=== PATIENT | female | born 1945 | race Caucasian/White ===

== ENCOUNTER 2016-11-28 07:10 | Day surgery (SDC) ==
[2016-05-29 12:23] VITALS: BMI 31.8
[2016-11-28 07:56] VITALS: TEMP 98.4
[2016-11-28] MEDS ORDERED: XOPENEX 1.25 MG NEB STA (08:08)
[2016-11-28] MEDS ORDERED: VERSED ONE (10:45)
[2016-11-28] MEDS ORDERED: DIPRIVAN 20 ML VIAL IVP ONE (10:45)
[2016-11-28 12:33] VITALS: BP 157/96
--- NOTE | 2016-11-28 14:45 | OP ---
PROCEDURE: EGD (ESOPHAGOGASTRODUODENOSCOPY). ENDOSCOPIST: Kelsey BURROWS M.D. INDICATION: MID EPIGASTRIC PAIN. INSTRUMENT: GIFH-190. MEDICATION: PER ANESTHESIA. PROCEDURE: The patient was positioned for endoscopy. The oropharynx was sprayed with Cetacaine spray and the endoscope was advanced through the bite block into the esophagus and from there advanced to the duodenum. The duodenum is normal. The pylorus was patent. The antrum reveals some mild gastritis. Biopsies for Helicobacter were obtained. On retroflex exam she does have a large hiatal hernia. The Z-line was regular. Esophagus was tortuous. She tolerated the procedure without immediate complication. PLAN: 1. She should continue all of her current medications. CC: DR. ESE LOMAX
== END 2016-11-28 12:30 | disposition home or self-care (01) ==
LOC: SURG 07:10
PROVIDERS: ATTEND Internal Medicine Gastroenterology
DX: R10.13 Epigastric pain (principal); K29.60 Other gastritis without bleeding; K44.9 Diaphragmatic hernia without obstruction or gangrene; E11.9 Type 2 diabetes mellitus without complications
CPT/HCPCS: 82962; 87339; 94640

== ENCOUNTER 2016-12-26 08:58 | Outpatient (CLI) ==
[2016-05-29 12:23] VITALS: BMI 31.8
--- NOTE | 2016-12-26 12:38 | MRI ---
EXAM: MRI lumbar spine without IV contrast. DATE: 26 December 2016. HISTORY: Radiculitis, lumbar spine degenerative change. Constant, chronic low back pain. TECHNIQUE: Sagittal and axial T1W and T2W sequences of the lumbar spine along with sagittal IR and coronal T2W sequences were obtained using 1.2 Marlene magnet. No IV contrast. COMPARISON: LS spine series [address] T-spine [address] abdomen/pelvis May 18. FINDINGS: There are five [id number] lumbar vertebra. There is no lumbar scoliosis. No acute lumbar fracture, subluxation, osseous malignancy, or pars interarticularis defect is identified. Emma mbar vertebra are normal in height. Bone marrow signal is normal. T2W/T1W bright, 7 mm focus in th e L2 body is likely a benign hemangioma. Tiny anterior osteophytes and mild disc space narrowing ar e seen at L4-5. Mild disc space narrowing is demonstrated at L4-5. Remaining intervertebral discs are normal in height. No sacral fracture or stress reaction is evident. SI joints are unremarkable . Conus medullaris terminates at L1 superior endplate. Visible spinal cord is normal. No retroperitoneal lymphadenopathy, paraspinal mass, or aortic aneurysm is detected. Atheroscleroti c plaques are present within the aortic and iliac artery aviles. Psoas muscles are normal. Posterio r paraspinal muscles reveal minor atrophy bilaterally. Visible portions of the liver, spleen, adren al glands, and kidneys reveal no definitive abnormality. Small number of descending colon diverticu li are identified. Segmental analysis: T12-L1: Normal. L1-2: Normal. L2-3: Minimal posterior to foraminal disc bulge and minor facet disease cause minimal left inferior foraminal encroachment. No central canal stenosis. L3-4: Minimal posterior to foraminal disc bulge and minor facet arthropathy cause minimal bilateral inferior foraminal encroachment. No central canal stenosis. L4-5: Minimal concentric disc bulge, mild facet arthropathy and slight ligamentum flavum hypertroph y cause mild central canal stenosis and mild bilateral foraminal narrowing. L4 nerve root contacts t he disc bulge near the lateral margin of the foramen. L5-S1: Small posterior to right foraminal disc bulge, mild bilateral facet arthropathy, and slight ligamentum flavum hypertrophy cause mild central canal stenosis and slight narrowing at the opening to each foramen. IMPRESSIONS: 1. Lumbar spine mild facet arthropathy and DDD. 2. Mild central canal stenosis at L4-5 and L5-S1. 3. Multilevel foraminal narrowing (minimal/mild). 4. Benign hemangioma in the L3 body. 5. Aortic and iliac artery marked ASVD. 6. Descending colon diverticulosis.
== END 2016-12-26 08:59 | disposition home or self-care (01) ==
LOC: RAD 08:58
PROVIDERS: ATTEND Pain Medicine Interventional Pain Medicine
DX: M54.16 Radiculopathy, lumbar region (principal); M54.17 Radiculopathy, lumbosacral region; M47.816 Spondylosis without myelopathy or radiculopathy, lumbar region; M47.817 Spondylosis without myelopathy or radiculopathy, lumbosacral region; M51.36 Other intervertebral disc degeneration, lumbar region; M51.37 Other intervertebral disc degeneration, lumbosacral region

== ENCOUNTER 2017-01-16 09:48 | Day surgery (SDC) ==
[2016-05-29 12:23] VITALS: BMI 31.8
[2017-01-16] MEDS ORDERED: LIDOCAINE 1% 20 ML MDV ID ONE (10:45)
[2017-01-16] MEDS ORDERED: LIDOCAINE 1% 20 ML MDV ONE (10:45)
[2017-01-16] MEDS ORDERED: XOPENEX 1.25 MG NEB STA (10:51)
[2017-01-16] MEDS ORDERED: LIDOCAINE HCL 2% LUER-JET ONE (11:10)
[2017-01-16] MEDS ORDERED: VERSED ONE (11:10)
[2017-01-16] MEDS ORDERED: DIPRIVAN 20 ML VIAL IVP ONE (11:10)
[2017-01-16] MEDS ORDERED: LIDOCAINE 2% 20 ML MDV ONE (11:10)
[2017-01-16 12:19] VITALS: BP 142/89; TEMP 97.2
--- NOTE | 2017-01-16 14:31 | OP ---
PROCEDURE: EGD (ESOPHAGOGASTRODUODENOSCOPY) WITH BIOPSY AND PINTO DILATATION. ENDOSCOPIST: Kelsey BURROWS M.D. INDICATION: REFLUX, DYSPHAGIA. INSTRUMENT: GIFH-190. MEDICATION: PER ANESTHESIA. PROCEDURE: The patient was positioned for endoscopy. The oropharynx was sprayed with Cetacaine spray and the endoscope was advanced through the bite block into the esophagus and from there advanced to the level of the duodenum. The duodenum is grossly normal. The pylorus is patent. The antrum is normal. Biopsies for helicobacter are obtained. Retroflex exam reveals a moderate sized hiatal hernia. Esophagus is very tortuous. We passed a [address] [place] with mild resistance. She tolerated the procedure without immediate complication. PLAN: 1. Continue current medications 2. Repeat as needed MTDD
== END 2017-01-16 12:15 | disposition home or self-care (01) ==
LOC: SURG 09:48
PROVIDERS: ATTEND Internal Medicine Gastroenterology
DX: K21.9 Gastro-esophageal reflux disease without esophagitis (principal); K44.9 Diaphragmatic hernia without obstruction or gangrene; R13.10 Dysphagia, unspecified; E11.9 Type 2 diabetes mellitus without complications
CPT/HCPCS: 82962; 94640

== ENCOUNTER 2017-02-07 19:27 | Emergency (ER) | payer OTHER ==
[2017-02-07 19:38] VITALS: BP 166/99; TEMP 100.6; BMI 29.9
[2017-02-07 19:59] LABS: FLU INTERNAL QC INTERNAL QC VALID; RAPID FLU A NEGATIVE (NEGATIVE); RAPID FLU B NEGATIVE (NEGATIVE)
--- NOTE | 2017-02-07 20:16 | ED.PDOC ---
General ED Provider: Dr. MAGI HERRERA-ER Chief Complaint: Sore Throat Stated Complaint: celso got a sore throat and a cough-- Time Seen by Physician: 19:35 Mode of Arrival: Walk-In Information Source: Patient Exam Limitations: No limitations Primary Care Provider: DEBBIE MULLIGAN-[facility] Nursing and Triage Documentation Reviewed and Agree: Yes Respiratory Complaint Exam - Respiratory Complaint/Exam Onset/Duration: 2 days Symptoms Are: Still present Timing: Intermittent Initial Severity: Mild Current Severity: Mild Location: Nose, Chest Character: Reports: Non-productive cough Aggravating: Reports: URI Alleviating: Reports: None Associated Signs and Symptoms: Reports: Fever, URI, Nasal congestion, Sore throat. Denies: Rapid breathing, Dyspnea, Chills, Chest pain, Pleuritic chest pain, Wheezing, Hemoptysis, Dizziness, Calf pain, Calf swelling, Edema, Hoarseness, Sinus discomfort, Vomiting, Weight loss, Decreased oral intake, Increased thirst, Increased appetite, Increased urination History of Healthcare-Acquired Pneumonia: No Pseudomonas Risk Factors: Reports: Chronic Lung Disease Status Asthmaticus Risk Factors: Reports: None Home Oxygen Use: No Recent Stress Test: No Recent Echo/LV Function: No Respiratory Distress: None Inadequate Respiratory Effort: No Dysphagia Present: No Stridor Present: No JVD Present: No Accessory Muscle Use: No Retractions: Not Present Diminished Breath Sounds: No Sinus Tenderness: None Grunting Respirations: No Kussmaul Respirations: No Differential Diagnoses: COPD Exacerbation, Bronchitis Review of Systems - Review Of Systems Constitutional: Reports: No symptoms Eyes: Reports: No symptoms Ears, Nose, Mouth, Throat: Reports: No symptoms Respiratory: Reports: Cough Cardiac: Reports: No symptoms GI: Reports: No symptoms : Reports: No symptoms Musculoskeletal: Reports: No symptoms Skin: Reports: No symptoms Neurological: Reports: No symptoms Endocrine: Reports: No symptoms Hematologic/Lymphatic: Reports: No symptoms All Other Systems: Reviewed and Negative Past Medical History - Past Medical History Previously Healthy: No Endocrine: Reports: DM 2, Hypothyroid, Other (GOUT) Cardiovascular: Reports: None Respiratory: Reports: COPD Hematological: Reports: None Gastrointestinal: Reports: GERD Genitourinary: Reports: None Neuro/Psych: Reports: Depression, Other ( HEAD INJURY 2-3 MONTHS AGO FROM FALL) Musculoskeletal: Reports: Arthritis, Other Cancer: Reports: None Last Menstrual Period: at 38 years old Other Pertinent Past Medical History: HYPOTENSION (PAST HISTORY OF HYPERTENSION ) - Surgical History General Surgical History: Reports: Hysterectomy ( hyst40 years ago), Other ( BILATERAL CATARACT EXTRACTIONS), Unknown - Family History Family History: Reports: Unknown - Social History Smoking Status: Former smoker Hx Substance Use: No Alcohol Screening: None Lives: With family - Immunizations Tetanus Shot up to Date: Yes Physical Exam - Physical Exam Appearance: Well-appearing, No pain distress, Well-nourished Pain Distress: Mild Eyes: WIL, EOMI, Conjunctiva clear ENT: Ears normal, Nose normal, Oropharynx normal Neck: Supple Respiratory: Rhonchi Cardiovascular: RRR, Pulses normal, No rub, No murmur GI/: Soft, Nontender, No masses, Bowel sounds normal, No Organomegaly Musculoskeletal: Normal strength, ROM intact, No edema, No calf tenderness Skin: Warm, Dry, Normal color Neurological: Sensation intact, Motor intact, Reflexes intact, Cranial nerves intact, Alert, Oriented Psychiatric: Affect appropriate, Mood appropriate Critical Care Note - Critical Care Note Total Time (mins): 0 Course - Course Orders, Labs, Meds: Lab Review 02/07/17 19:40 Influenza A (Rapid) Negative Influenza B (Rapid) Negative Orders Category Date Time Status MOLECULAR GROUP A STREP Stat LAB 02/07/17 19:40 Results RAPID FLU A/B Stat LAB 02/07/17 19:40 Completed STREP SCREEN Stat LAB 02/07/17 19:40 Results Vital Signs: Temp Pulse Resp BP Pulse Ox 02/07/17 19:29 100.6 F H 94 H 20 166/99 H 95 Departure - Departure Time of Disposition: 20:16 Disposition: HOME SELF-CARE Discharge Problem: Obstructive chronic bronchitis with exacerbation Instructions: COPD (Chronic Obstructive Pulmonary Disease) (ED) Condition: Good Pt referred to PMD for follow-up: Yes Additional Instructions: augmentin 875mg bid x 7days--medrol dose pack--monitor bs on the steroids --fu with pcp if not better in 72hrs Allergies/Adverse Reactions: Allergies albuterol Allergy (Intermediate, Verified 02/07/17 19:35) Rash nebs tx causes rash Home Medications: Ambulatory Orders Metformin HCl [Glucophage] 500 mg PO DAILYWM #30 tablet 08/05/15 Diltiazem HCl [Cardizem] 30 mg PO BID 03/04/16 Fluticasone/Salmeterol 100/50 [Advair 100-50 Diskus] 1 puff IH BID 03/04/16 Gabapentin [Neurontin] 100 mg PO TID 03/04/16 Levothyroxine Sodium [Synthroid] 1 tab PO DAILY 03/04/16 Losartan Potassium [Cozaar] 50 mg PO DAILY 03/04/16 [place]-3 Fatty Acids/Fish Oil [Fish Oil 1,000 mg Capsule] 1,000 mcg PO DAILY 04/14 Potassium Chloride [Klor-Con 10] 1 tab PO DAILY 03/04/16 Simvastatin 20 mg PO DAILY 03/04/16 Tiotropium [place] [Spiriva] 18 mcg IH DAILY 03/04/16 Cholecalciferol (Vitamin D3) [Vitamin D3] 1 cap PO WEEKLY 03/21/16 Oxycodone-Acetaminophen 10-325 [Percocet 10-325] 1 tab PO Q6H 05/29/16 Trazodone HCl 150 mg PO BEDTIME 05/29/16 Arformoterol Tartrate [Brovana] 1 vial IH DAILY #30 vial.neb 06/02/16 Levalbuterol HCl [Xopenex] 1.25 mg IH Q8HR #240 vial.neb 06/02/16 Escitalopram Oxalate [Lexapro] 10 mg PO BEDTIME #30 06/16/16 Imipramine Pamoate 100 mg PO BEDTIME #30 06/16/16 Imipramine Pamoate 100 mg PO BEDTIME #30 09/29/16 Diazepam [Valium] 10 mg PO TID #90 01/19/17 Disposition Discussed With: Patient
== END 2017-02-07 20:15 | disposition home or self-care (01) ==
LOC: ED 19:27
DX: J44.1 Chronic obstructive pulmonary disease with (acute) exacerbation (principal); J02.9 Acute pharyngitis, unspecified; Z79.899 Other long term (current) drug therapy
CPT/HCPCS: 87651; 87804; 87880; 99283

== ENCOUNTER 2017-03-06 17:50 | Outpatient (CLI) | payer OTHER ==
[2017-03-07 09:54] LABS: H. PYLORI STOOL ANTIGEN NEGATIVE (NEGATIVE); H.PYLORI STOOL AG INTERNAL QC INTERNAL QC VALID
== END 2017-03-06 17:51 | disposition home or self-care (01) ==
LOC: LAB 17:50
PROVIDERS: ATTEND Internal Medicine Gastroenterology
DX: K21.9 Gastro-esophageal reflux disease without esophagitis (principal)
CPT/HCPCS: 87338

== ENCOUNTER 2017-03-13 11:49 | Inpatient (IN) ==
--- NOTE | 2017-03-13 13:00 | ED.PDOC ---
General ED Provider: Dr. MEREDITH GIRALDO JR Chief Complaint: Cough Stated Complaint: dg RECENTLY HAS BEEN TREATED FOR UPPER RESP WITH Z-PACK. PATIENT STATES "HAVE NOT BEEN GETTING ANY BETTER"[End]99.5 99 20 92% 143/84 3 Time Seen by Physician: 13:00 Mode of Arrival: Walk-In Information Source: Patient, Family Exam Limitations: No limitations Primary Care [facility] and Triage Documentation Reviewed and Agree: No Review of Systems - Review Of Systems Constitutional: Reports: Malaise, Weakness Eyes: Reports: No symptoms Ears, Nose, Mouth, Throat: Reports: No symptoms Respiratory: Reports: Cough Cardiac: Reports: No symptoms GI: Reports: No symptoms : Reports: No symptoms Musculoskeletal: Reports: No symptoms Skin: Reports: No symptoms Neurological: Reports: No symptoms Endocrine: Reports: No symptoms Hematologic/Lymphatic: Reports: No symptoms All Other Systems: Other Past Medical History - Past Medical History Previously Healthy: No Endocrine: Reports: DM 2, Hypothyroid, Other (GOUT ) Cardiovascular: Reports: None Respiratory: Reports: COPD, Bronchitis (bronchitis several times), Pneumonia Hematological: Reports: None Gastrointestinal: Reports: GERD Genitourinary: Reports: None Neuro/Psych: Reports: Depression, Other ( HEAD INJURY 2-3 MONTHS AGO FROM FALL) Musculoskeletal: Reports: Arthritis, Other Cancer: Reports: None Last Menstrual Period: 1986 Other Pertinent Past Medical History: HYPOTENSION (PAST HISTORY OF HYPERTENSION ) - Surgical History General Surgical History: Reports: Hysterectomy ( hyst 38 years old), Orthopedic ( right foot surgery at 50 years old), Other (BILATERAL CATARACT EXTRACTIONS), Unknown - Family History Family History: Reports: Unknown - Social History Smoking Status: Former smoker Hx Substance Use: No Alcohol Screening: None - Immunizations Tetanus Shot up to Date: Yes Physical Exam - Physical Exam Appearance: Well-appearing Eyes: WIL, EOMI, Conjunctiva clear ENT: Ears normal, Nose normal, Oropharynx normal Neck: Supple Respiratory: Airway patent, Breath sounds clear, Breath sounds equal, Respirations nonlabored Cardiovascular: RRR, Pulses normal, No rub, No murmur GI/: Soft, Nontender, No masses, Bowel sounds normal, No Organomegaly Musculoskeletal: Normal strength, ROM intact, No edema, No calf tenderness Skin: Warm, Dry, Normal color Neurological: Sensation intact, Motor intact, Reflexes intact, Cranial nerves intact, Alert, Oriented Psychiatric: Affect appropriate, Mood appropriate Critical Care Note - Critical Care Note Total Time (mins): 5 Course - Course Hematology/Chemistry: 03/13/17 13:10 03/13/17 13:10 Orders, Labs, Meds: Lab Review 03/13/17 13:10 WBC 8.61 RBC 4.19 L Hgb 13.0 Hct 39.7 MCV 94.7 MCH 31.0 MCHC 32.7 RDW Coeff of Fawad 12.8 Plt Count 337 Immature Gran % (Auto) 0.6 Neut % (Auto) 67.7 Lymph % (Auto) 22.9 [place] % (Auto) 5.8 Eos % (Auto) 2.4 Baso % (Auto) 0.6 Immature Gran # (Auto) 0.1 Neut # 5.8 Lymph # 2.0 [place] # 0.5 Eos # 0.2 Baso # 0.1 Sodium 139 Potassium 3.9 Chloride 106 Carbon Dioxide 25 Anion Gap 11.9 BUN 7 Creatinine 0.89 Estimated GFR (MDRD) 63.00 BUN/Creatinine Ratio 7.86 Glucose 88 Lactic Acid 8.4 Calcium 11.0 H Total Bilirubin 0.28 AST 10 L ALT 13 Alkaline Phosphatase 73 Total Creatine Kinase 21 Troponin I < 0.0100 B-Natriuretic Peptide 18 Total Protein 7.2 Albumin 3.3 L Globulin 3.9 Albumin/Globulin Ratio 0.85 Procalcitonin 1.12 Orders Category Date Time Status ADMIT PATIENT INPATIENT .TO [facility] (MONITORED BED) ADMISSION 03/13/17 14: 30 Active EKG-(ED ONLY) Stat CARDIO 03/13/17 12:58 Completed EKG-(IP & OP ONLY) DAILY CARDIO 03/14/17 06:00 Ordered EKG-(IP & OP ONLY) DAILY CARDIO 03/15/17 06:00 Ordered EKG-(IP & OP ONLY) DAILY CARDIO 03/16/17 06:00 Ordered ACTIVITY .Early Mobilization for VTE Prevention CARE 03/13/17 14:41 Active BLOOD GLUCOSE MONITORING 0630,1100,1700,2100 CARE 03/13/17 14:42 Active GIVE HS SNACK 2100 CARE 03/13/17 14:43 Active INTAKE & OUTPUT Q8HR CARE 03/13/17 14:30 Active INTAKE & OUTPUT Q8HR CARE 03/13/17 14:41 Completed TELEMETRY MONITORING TELE CARE 03/13/17 14:31 Active ADA 1800 PAUL. DIET DIETARY 03/13/17 Dinner Ordered HS SNACK DIETARY 03/13/17 Dinner Ordered B-TYPE NATRIURETIC PEPTIDE Stat LAB 03/13/17 13:10 Completed BLOOD CULTURE Stat LAB 03/13/17 13:10 Received CBC W/ AUTO DIFF DAILY@0600 LAB 03/14/17 06:00 Ordered CBC W/ AUTO DIFF DAILY@0600 LAB 03/15/17 06:00 Ordered CBC W/ AUTO DIFF DAILY@0600 LAB 03/16/17 06:00 Ordered CBC W/ AUTO DIFF DAILY@0600 LAB 03/17/17 06:00 Ordered CBC W/ AUTO DIFF DAILY@0600 LAB 03/18/17 06:00 Ordered CBC W/ AUTO DIFF DAILY@0600 LAB 03/19/17 06:00 Ordered CBC W/ AUTO DIFF DAILY@0600 LAB 03/20/17 06:00 Ordered CBC W/ AUTO DIFF DAILY@0600 LAB 03/21/17 06:00 Ordered CBC W/ AUTO DIFF DAILY@0600 LAB 03/22/17 06:00 Ordered CBC W/ AUTO DIFF DAILY@0600 LAB 03/23/17 06:00 Ordered CBC W/ AUTO DIFF DAILY@0600 LAB 03/24/17 06:00 Ordered CBC W/ AUTO DIFF DAILY@0600 LAB 03/25/17 06:00 Ordered CBC W/ AUTO DIFF DAILY@0600 LAB 03/26/17 06:00 Ordered CBC W/ AUTO DIFF DAILY@0600 LAB 03/27/17 06:00 Ordered CBC W/ AUTO DIFF DAILY@0600 LAB 03/28/17 06:00 Ordered CBC W/ AUTO DIFF DAILY@0600 LAB 03/29/17 06:00 Ordered CBC W/ AUTO DIFF DAILY@0600 LAB 03/30/17 06:00 Ordered CBC W/ AUTO DIFF DAILY@0600 LAB 03/31/17 06:00 Ordered CBC W/ AUTO DIFF DAILY@0600 LAB 04/01/17 06:00 Ordered CBC W/ AUTO DIFF DAILY@0600 LAB 04/02/17 06:00 Ordered CBC W/ AUTO DIFF Stat LAB 03/13/17 13:10 Completed COMPREHENSIVE METABOLIC PANEL DAILY@0600 LAB 03/14/17 06:00 Ordered COMPREHENSIVE METABOLIC PANEL DAILY@0600 LAB 03/15/17 06:00 Ordered COMPREHENSIVE METABOLIC PANEL DAILY@0600 LAB 03/16/17 06:00 Ordered COMPREHENSIVE METABOLIC PANEL DAILY@0600 LAB 03/17/17 06:00 Ordered COMPREHENSIVE METABOLIC PANEL DAILY@0600 LAB 03/18/17 06:00 Ordered COMPREHENSIVE METABOLIC PANEL DAILY@0600 LAB 03/19/17 06:00 Ordered COMPREHENSIVE METABOLIC PANEL DAILY@0600 LAB 03/20/17 06:00 Ordered COMPREHENSIVE METABOLIC PANEL DAILY@0600 LAB 03/21/17 06:00 Ordered COMPREHENSIVE METABOLIC PANEL DAILY@0600 LAB 03/22/17 06:00 Ordered COMPREHENSIVE METABOLIC PANEL DAILY@0600 LAB 03/23/17 06:00 Ordered COMPREHENSIVE METABOLIC PANEL DAILY@0600 LAB 03/24/17 06:00 Ordered COMPREHENSIVE METABOLIC PANEL DAILY@0600 LAB 03/25/17 06:00 Ordered COMPREHENSIVE METABOLIC PANEL DAILY@0600 LAB 03/26/17 06:00 Ordered COMPREHENSIVE METABOLIC PANEL DAILY@0600 LAB 03/27/17 06:00 Ordered COMPREHENSIVE METABOLIC PANEL DAILY@0600 LAB 03/28/17 06:00 Ordered COMPREHENSIVE METABOLIC PANEL DAILY@0600 LAB 03/29/17 06:00 Ordered COMPREHENSIVE METABOLIC PANEL DAILY@0600 LAB 03/30/17 06:00 Ordered COMPREHENSIVE METABOLIC PANEL DAILY@0600 LAB 03/31/17 06:00 Ordered COMPREHENSIVE METABOLIC PANEL DAILY@0600 LAB 04/01/17 06:00 Ordered COMPREHENSIVE METABOLIC PANEL DAILY@0600 LAB 04/02/17 06:00 Ordered COMPREHENSIVE METABOLIC PANEL Stat LAB 03/13/17 13:10 Completed CREATINE KINASE Q8H LAB 03/13/17 20:45 Ordered CREATINE KINASE Q8H LAB 03/14/17 04:45 Ordered CREATINE KINASE Stat LAB 03/13/17 13:10 Completed LACTIC ACID Stat LAB 03/13/17 13:10 Completed PROCALCITONIN Stat LAB 03/13/17 13:10 Completed SPUTUM CULTURE Stat LAB 03/13/17 13:58 Uncollected TROPONIN I Q8H LAB 03/13/17 20:45 Ordered TROPONIN I Q8H LAB 03/14/17 04:45 Ordered TROPONIN I Stat LAB 03/13/17 13:10 Completed Azithromycin Inj [Zithromax] 500 mg MEDS 03/13/17 15:00 Active 0.9 % Sodium Chloride [Sodium Chloride] 250 ml IV DAILY Ceftriaxone Sodium [Rocephin] 1 gm MEDS 03/14/17 09:00 Active 0.9 % Sodium Chloride [Sodium Chloride] 50 ml IV DAILY Methylprednisolone Sod Succ/Pf [Solu-Medrol 125 mg] MEDS 03/13/17 15:00 Active 80 mg IVP Q8HR Sodium Chloride 0.9% [Sodium Chloride] 1,000 ml MEDS 03/13/17 15:00 Active IV 75 mls/hr RESUSCITATION STATUS Routine OTHERS 03/13/17 14:30 Ordered CHEST, 2 VIEWS PA & LAT Stat RADS 03/13/17 13:00 Completed Medications Generic Name Dose Route Start Last Admin Trade Name Freq PRN Reason Stop Dose Admin Diazepam 10 mg 03/13/17 15:16 Valium PO TID PRN ANXIETY Diltiazem HCl 30 mg 03/13/17 21:[address] [facility] Ergocalciferol 50,000 unit 03/20/17 09:[address] [facility] Fish Oil 1,000 mg 03/14/17 09:00 [place]-[address] [facility] Formoterol Fumarate 1 mcg 03/14/17 06:[address] [facility] Gabapentin 100 mg 03/13/17 15:00 03/13/17 16:29 Neurontin PO 100 mg TID EMMY Administration Azithromycin 500 mg/ Sodium 250 mls @ 125 mls/hr 03/13/17 15:00 03/13/17 16: 29 Chloride IV 125 mls/hr DAILY EMMY Administration Ceftriaxone Sodium 1 gm/ 50 mls @ 75 mls/hr 03/14/17 09:00 Sodium Chloride IV DAILY EMMY Sodium Chloride 1,000 mls @ 75 mls/hr 03/13/17 15:00 03/13/17 16:24 Sodium Chloride IV 75 mls/hr .[id number] EMMY Administration Levalbuterol HCl 1 vial 03/13/17 21:00 Xopenex 1.25 Mg NEB Q8HR EMMY Levothyroxine Sodium 25 mcg 03/14/17 09:[address] [facility] Losartan Potassium 50 mg 03/14/17 09:[address] [facility] Metformin HCl 500 mg 03/14/17 08:[address] [facility] Methylprednisolone Sodium Succinate 80 mg 03/13/17 15:00 03/13/17 16:48 Solu-Medrol 125 Mg IVP 80 mg Q8HR EMMY Administration Non-Formulary Medication 100 mg 03/13/17 21:00 Imipramine Pamoate [Imipramine Pamoate] PO BEDTIME EMMY Oxycodone/Acetaminophen 1 tab 03/13/17 14:56 Percocet 10-325 PO Q6H PRN Severe Pain Potassium Chloride 10 meq 03/14/17 09:00 Micro-K Cap PO DAILY EMMY Fluticasone/Salmeterol 1 puff 03/13/17 21:00 Advair 100-50 Diskus IH BID EMMY Simvastatin 20 mg 03/14/17 09:00 Zocor PO DAILY EMMY Tiotropium [place] 1 cap 03/14/17 09:00 Spiriva IH DAILY EMMY Trazodone HCl 150 mg 03/13/17 21:00 Desyrel PO BEDTIME EMMY Discontinued Medications Generic Name Dose Route Start Last Admin Trade Name Freq PRN Reason Stop Dose Admin Ceftriaxone Sodium 1 gm/ 50 mls @ 75 mls/hr 03/13/17 14:52 03/13/17 15:15 Sodium Chloride IV 03/13/17 15:31 75 mls/hr ONCE STA Administration Vital Signs: Temp Pulse Resp BP Pulse Ox 03/13/17 11:51 99.5 F 99 H 20 143/84 H 92 L Departure - Departure Time of Disposition: 15:01 Disposition: ADMITTED INPATIENT Discharge Problem: Pneumonia Condition: Good Pt referred to PMD for follow-up: No (hospitalist) Allergies/Adverse Reactions: Allergies albuterol Allergy (Intermediate, Verified 02/07/17 19:35) Rash nebs tx causes rash Home Medications: Ambulatory Orders Metformin HCl [Glucophage] 500 mg PO DAILYWM #30 tablet 08/05/15 Diltiazem HCl [Cardizem] 30 mg PO BID 03/04/16 Fluticasone/Salmeterol 100/50 [Advair 100-50 Diskus] 1 puff IH BID 03/04/16 Gabapentin [Neurontin] 100 mg PO TID 03/04/16 Levothyroxine Sodium [Synthroid] 1 tab PO DAILY 03/04/16 Losartan Potassium [Cozaar] 50 mg PO DAILY 03/04/16 [place]-3 Fatty Acids/Fish Oil [Fish Oil 1,000 mg Capsule] 1,000 mcg PO DAILY 04/14 Potassium Chloride [Klor-Con 10] 1 tab PO DAILY 03/04/16 Simvastatin 20 mg PO DAILY 03/04/16 Tiotropium [place] [Spiriva] 18 mcg IH DAILY 03/04/16 Cholecalciferol (Vitamin D3) [Vitamin D3] 1 cap PO WEEKLY 03/21/16 Oxycodone-Acetaminophen 10-325 [Percocet 10-325] 1 tab PO Q6H 05/29/16 Trazodone HCl 150 mg PO BEDTIME 05/29/16 Arformoterol Tartrate [Brovana] 1 vial IH DAILY #30 vial.[facility] 06/02/16 Levalbuterol HCl [Xopenex] 1.25 mg IH Q8HR #240 vial.[facility] 06/02/16 Escitalopram Oxalate [Lexapro] 10 mg PO BEDTIME #30 06/16/16 Imipramine Pamoate 100 mg PO BEDTIME #30 06/16/16 Imipramine Pamoate 100 mg PO BEDTIME #30 09/29/16 Diazepam [Valium] 10 mg PO TID #90 01/19/17
[2017-03-13 13:21] LABS: BASOPHILS # (AUTO) 0.1 K/uL (0-0.2); BASOPHILS % (AUTO) 0.6 % (0.0-3.0); EOSINOPHILS # (AUTO) 0.2 K/ul (0.0-0.7); EOSINOPHILS % (AUTO) 2.4 % (0.0-7.0); HEMATOCRIT 39.7 % (37.0-47.0); IMMATURE GRANULOCYTE % (AUTO) 0.6 % (0.0-5.0); LYMPHOCYTES % (AUTO) 22.9 (10.0-50.0); MEAN CORPUSCULAR HGB CONC 32.7 (31.8-35.4); MEAN CORPUSCULAR VOLUME 94.7 fl (81.0-99.0); MONOCYTES # (AUTO) 0.5 K/uL (0.4-2.0); MONOCYTES % (AUTO) 5.8 (0-10); NEUTROPHILS # (AUTO) 5.8 K/ul (2.0-6.9); NEUTROPHILS % (AUTO) 67.7; PLATELET COUNT 337 10^3/uL (140-440); RED BLOOD COUNT 4.19 10^6/ul (4.20-5.40); WHITE BLOOD COUNT 8.61 K/ul (4.6-10.2)
--- NOTE | 2017-03-13 13:46 | DI ---
EXAM: Chest two view, frontal and lateral views. HISTORY: Cough. COMPARISON: 06/01/2016. FINDINGS: Heart size is normal. Atherosclerotic calcifications present. Calcified granulomatous c hanges noted. There is right perihilar consolidation which is new from prior study. No pleural eff usion or pneumothorax identified. No acute osseous abnormality seen. Probable hiatal hernia noted. IMPRESSION: Right perihilar consolidation, suggesting pneumonia. Follow-up in 4-6 weeks recommended for sanjay pedroza.
[2017-03-13 13:47] LABS: ALANINE AMINOTRANSFERASE 13 U/L (12-78); ALBUMIN 3.3 g/dL (3.4-5.0); ALBUMIN/GLOBULIN RATIO 0.85; ALKALINE PHOSPHATASE 73 U/L (53-141); ANION GAP 11.9; ASPARTATE AMINO TRANSFERASE 10 U/L (15-37); BILIRUBIN,TOTAL 0.28 mg/dL (0.00-1.20); BLOOD UREA NITROGEN 7 mg/dL (7-18); BUN/CREATININE RATIO 7.86; CARBON DIOXIDE 25 mmol/L (23-31); CHLORIDE 106 mmol/L (98-107); CREATINE KINASE 21 U/L; CREATININE 0.89 mg/dL (0.60-1.30); GLUCOSE 88 mg/dL (82-115); POTASSIUM 3.9 mmol/L (3.5-5.10); SODIUM 139 mmol/L (136-145); TOTAL PROTEIN 7.2 g/dL (5.8-8.1)
[2017-03-13] MEDS ORDERED: TYLENOL PO PRN (14:41)
[2017-03-13] MEDS ORDERED: NON-FORMULARY MEDICATION (Diazepam [Valium] 10 MG) PO PRN ×22 (14:56)
[2017-03-13] MEDS ORDERED: ROCEPHIN ONE (15:06)
[2017-03-13] MEDS: ROCEPHIN 1 GM in SODIUM CHLORIDE 50 ML IV STA ×2 (15:15→16:11)
[2017-03-13] MEDS: SODIUM CHLORIDE 1,000 ML IV SCH (16:24)
[2017-03-13] MEDS: NEURONTIN PO SCH ×2 (16:29→20:04)
[2017-03-13] MEDS: ZITHROMAX 500 MG in SODIUM CHLORIDE 250 ML IV SCH (16:29)
[2017-03-13] MEDS: SOLU-MEDROL 125 MG IVP SCH ×2 (16:48→20:03)
[2017-03-13 17:21] VITALS: BMI 31.1
[2017-03-13] MEDS: DESYREL PO SCH (20:04)
[2017-03-13] MEDS: CARDIZEM PO SCH (20:04)
[2017-03-13] MEDS: ADVAIR 100-50 DISKUS IH SCH (20:12)
[2017-03-13] MEDS: IMIPRAMINE PAMOATE 100 MG PO SCH (20:13)
[2017-03-13] MEDS ORDERED: XOPENEX 1.25 MG NEB SCH (21:00)
[2017-03-13] MEDS: XOPENEX 1.25 MG NEB SCH (21:00)
[2017-03-13] MEDS ORDERED: NON-FORMULARY MEDICATION (Trazodone Hcl [Trazodone Hcl] 150 MG) PO SCH ×22 (21:00)
[2017-03-13 21:41] LABS: CREATINE KINASE 24 U/L
[2017-03-14] MEDS ORDERED: TYLENOL PO STA (01:55)
[2017-03-14 04:48] LABS: HEMATOCRIT 38.3 % (37.0-47.0); HEMOGLOBIN 12.7 g/dl (12.0-16.0); MEAN CORPUSCULAR HGB CONC 33.2 (31.8-35.4); MEAN CORPUSCULAR VOLUME 93.4 fl (81.0-99.0); PLATELET COUNT 313 10^3/uL (140-440); WHITE BLOOD COUNT 6.26 K/ul (4.6-10.2)
[2017-03-14 05:01] LABS: ANISOCYTOSIS NOT PRESENT (NOT PRESENT)
[2017-03-14 05:09] LABS: ALBUMIN 2.8 g/dL (3.4-5.0); ALBUMIN/GLOBULIN RATIO 0.78; ANION GAP 12.8; BILIRUBIN,TOTAL 0.13 mg/dL (0.00-1.20); BUN/CREATININE RATIO 12.19; CALCIUM 10.4 mg/dL (8.2-10.2); CREATININE 0.82 mg/dL (0.60-1.30); POTASSIUM 4.8 mmol/L (3.5-5.10); TOTAL PROTEIN 6.4 g/dL (5.8-8.1)
[2017-03-14] MEDS: XOPENEX 1.25 MG NEB SCH ×3 (05:09→22:35)
[2017-03-14] MEDS: SOLU-MEDROL 125 MG IVP SCH ×3 (05:16→20:17)
[2017-03-14 05:18] LABS: CREATINE KINASE 21 U/L
[2017-03-14] MEDS: SYNTHROID PO SCH (05:33)
[2017-03-14] MEDS ORDERED: PERFOROMIST NEB SCH (06:00)
[2017-03-14] MEDS: SODIUM CHLORIDE 1,000 ML IV SCH ×3 (07:19→17:45)
[2017-03-14] MEDS: GLUCOPHAGE PO SCH (08:06)
[2017-03-14] MEDS: SPIRIVA IH SCH (08:58)
[2017-03-14] MEDS: ADVAIR 100-50 DISKUS IH SCH ×2 (08:58→20:16)
[2017-03-14] MEDS: ROCEPHIN 1 GM in SODIUM CHLORIDE 50 ML IV SCH (08:58)
[2017-03-14] MEDS ORDERED: SYNTHROID PO SCH (09:00)
[2017-03-14] MEDS ORDERED: POTASSIUM CHLORIDE PO SCH ×22 (09:00)
[2017-03-14] MEDS ORDERED: NON-FORMULARY MEDICATION (Omega-3 Fatty Acids/Fish Oil [Fish Oil 1,000 Mg Capsule] 1,000 M PO SCH ×22 (09:00)
[2017-03-14] MEDS: NEURONTIN PO SCH ×3 (09:00→20:16)
[2017-03-14] MEDS: ZOCOR PO SCH (09:00)
[2017-03-14] MEDS: MICRO-K CAP PO SCH (09:00)
[2017-03-14] MEDS ORDERED: NON-FORMULARY MEDICATION (Arformoterol Tartrate [Brovana] 1 VIAL) IH SCH (09:00)
[2017-03-14] MEDS ORDERED: NON-FORMULARY MEDICATION (Simvastatin [Simvastatin] 20 MG) PO SCH ×22 (09:00)
[2017-03-14] MEDS: COZAAR PO SCH (09:00)
[2017-03-14] MEDS: CARDIZEM PO SCH ×2 (09:01→20:16)
[2017-03-14] MEDS: OMEGA-3 FISH OIL PO SCH (09:01)
--- NOTE | 2017-03-14 10:10 | PCM.PROG ---
Attending Provider: ATTENDING PROVIDER: Dr. DEBBIE MULLIGAN -- SEEN BY DR. GOLDEN DATE OF SERVICE: 03/14/17 SUBJECTIVE: This 71 year old WHITE/ F was hospitalized 03/13/17. The patient is hospitalized with pneumonia. She is being treated with Zithromax, Rocephin, steroids and nebs treatment. The patient is feeling better, is able to talk without coughing. REVIEW OF SYSTEMS: CONSTITUTIONAL: No night sweats. No fatigue, malaise, lethargy. No fever or chills. HEENT: Eyes: No visual changes. No eye pain. No eye discharge. ENT: No runny nose. No epistaxis. No sinus pain. No odynophagia. No congestion. RESPIRATORY: Mild cough. No congestion. No hemoptysis. CARDIOVASCULAR: No angina symptoms. No CHF symptoms. No atypical chest pain for CAD. No palpitations. No shortness of breath. No PND, no orthopnea. GASTROINTESTINAL: Appetite is good. No abdominal pain. No nausea or vomiting. No diarrhea or constipation. No hematemesis. No hematochezia. GENITOURINARY: No urgency. No frequency. No dysuria. No hematuria. No obstructive symptoms. No discharge. No pain. No significant abnormal bleeding. MUSCULOSKELETAL: No musculoskeletal pain; no joint swelling. NEUROLOGICAL: Awake, alert, oriented to time, place and person. No headache. No neck pain. No syncope. No seizures. No dizziness. PSYCHIATRIC: Not anxious. No depression. No suicidal thoughts. No homicidal thoughts. SKIN: No rash. No lesions. No wounds. ENDOCRINE: No unexplained weight loss. No weight gain. HEMATOLOGIC/LYMPHATIC: No anemia. No purpura. No petechiae. No prolonged or excessive bleeding. No palpable lymph nodes. PHYSICAL EXAMINATION: GENERAL: The patient is awake, alert and oriented, lying in bed in no distress. VITAL SIGNS: Temperature 97.0 F, Pulse 88, Respiratory Rate 19, BP 149/86, Pulse Ox 94% HEENT: Head normocephalic, atraumatic. Eyes: Extraocular muscles are intact. Pupils are equal, round and reactive to light and accommodation. Ears: No lesions. Nose appeared normal. Throat: No exudate or erythema. NECK: Supple. No JVD, no carotid bruit. No lymphadenopathy or thyromegaly. LUNGS: Decreased breath sounds. Clear to auscultation. Percussion note normal. Chest symmetrical. HEART: S1, S2, no S3. No murmurs. No cyanosis or clubbing. No ascites. Pulses: Dorsalis pedis and posterior tibial pulses +2 strong bilaterally. ABDOMEN: Soft. Non-tender. Bowel sounds active. No CVA tenderness. No mass felt. EXTREMITIES: No edema. Full range of motion of all extremities, equal. NEUROLOGIC: No focal deficit. Cranial nerves II through XII are grossly intact. No headache, no double vision or headache. SKIN: Not dry. Intact. Turgor-normal. LYMPHATIC: No palpable lymph nodes/no lymphedema. MUSCULOSKELETAL: Normal joints with no swelling. Muscle tone is normal. LAB REVIEW: 03/14/17 04:45 03/14/17 04:45 03/14/17 04:45: WBC 6.26, RBC 4.10 L, Hgb 12.7, Hct 38.3, MCV 93.4, MCH 31.0, MCHC 33.2, RDW Coeff of Fawad 12.6, Plt Count 313, Neutrophils % (Manual) 81.0 H, Lymphocytes % (Manual) 19.0, Sodium 139, Potassium 4.8, Chloride 108 H, Carbon Dioxide 23, Anion Gap 12.8, BUN 10, Creatinine 0.82, Estimated GFR (MDRD) 69.00 , BUN/Creatinine Ratio 12.19, Glucose 229 H D, Calcium 10.4 H, Total Bilirubin 0.13, AST 8 L, ALT 12, Alkaline Phosphatase 70, Total Creatine Kinase 21, Troponin I < 0.0100, Total Protein 6.4, Albumin 2.8 L, Globulin 3.6, Albumin/ Globulin Ratio 0.78 03/13/17 21:10: Total Creatine Kinase 24, Troponin I < 0.0100 ASSESSMENT: 1. PNEUMONIA 2. DIABETES MELLITUS 3. HYPERTENSION 4. DYSLIPIDEMIA 5. GENERALIZED OSTEOARTHRITIS 6. DEPRESSION PLAN: 1. Continue all medications 2. Continue steroids 3. Encourage the patient to eat 4. Sliding scale coverage for hyperglycemia in excess of what she has because of the steroids 5. Encourage the patient to walk 6. Continue IV antibiotics and IV fluids Plan and coordination of the patient's care discussed in the presence of Book Publisher and nurse. CONDITION: STABLE SCRIBED BY: SHAKA JACINTO Exhibit Display Representative scribed while in presence of service performed by Dr. Golden on 03/14/17 ([id number])
[2017-03-14] MEDS: ZITHROMAX 500 MG in SODIUM CHLORIDE 250 ML IV SCH (10:11)
[2017-03-14] MEDS: HUMULIN R SUBCUT PRN ×3 (11:43→20:31)
[2017-03-14] MEDS: PERCOCET 10-325 PO PRN ×2 (11:59→18:34)
[2017-03-14] MEDS: VALIUM PO PRN ×2 (16:16→20:16)
[2017-03-14] MEDS: IMIPRAMINE PAMOATE 100 MG PO SCH (20:12)
[2017-03-14] MEDS: DESYREL PO SCH (20:17)
[2017-03-15] MEDS: SODIUM CHLORIDE 1,000 ML IV SCH ×2 (01:09→17:43)
[2017-03-15] MEDS: PERCOCET 10-325 PO PRN ×3 (01:24→18:33)
[2017-03-15 05:02] LABS: BASOPHILS % (AUTO) 0.2 % (0.0-3.0); HEMATOCRIT 34.9 % (37.0-47.0); HEMOGLOBIN 11.6 g/dl (12.0-16.0); IMMATURE GRANULOCYTE % (AUTO) 1.5 % (0.0-5.0); LYMPHOCYTES # (AUTO) 1.3 K/uL (0.60-3.4); LYMPHOCYTES % (AUTO) 6.1 (10.0-50.0); MEAN CORPUSCULAR HEMOGLOBIN 31.3 pg (27.0-31.0); MEAN CORPUSCULAR HGB CONC 33.2 (31.8-35.4); MEAN CORPUSCULAR VOLUME 94.1 fl (81.0-99.0); MONOCYTES # (AUTO) 0.4 K/uL (0.4-2.0); MONOCYTES % (AUTO) 1.9 (0-10); NEUTROPHILS # (AUTO) 18.5 K/ul (2.0-6.9); NEUTROPHILS % (AUTO) 90.3; PLATELET COUNT 337 10^3/uL (140-440); RED BLOOD COUNT 3.71 10^6/ul (4.20-5.40); WHITE BLOOD COUNT 20.52 K/ul (4.6-10.2)
[2017-03-15] MEDS: XOPENEX 1.25 MG NEB SCH ×3 (05:04→22:52)
[2017-03-15] MEDS: PERFOROMIST NEB SCH (05:14)
[2017-03-15 05:29] LABS: ALANINE AMINOTRANSFERASE 11 U/L (12-78); ALBUMIN 2.8 g/dL (3.4-5.0); ALBUMIN/GLOBULIN RATIO 0.85; ALKALINE PHOSPHATASE 62 U/L (53-141); ANION GAP 13.8; ASPARTATE AMINO TRANSFERASE 8 U/L (15-37); BLOOD UREA NITROGEN 13 mg/dL (7-18); BUN/CREATININE RATIO 16.66; CALCIUM 10.6 mg/dL (8.2-10.2); CARBON DIOXIDE 23 mmol/L (23-31); CHLORIDE 108 mmol/L (98-107); CREATININE 0.78 mg/dL (0.60-1.30); GLUCOSE 194 mg/dL (82-115); POTASSIUM 4.8 mmol/L (3.5-5.10); SODIUM 140 mmol/L (136-145); TOTAL PROTEIN 6.1 g/dL (5.8-8.1)
[2017-03-15 05:34] LABS: BILIRUBIN,TOTAL < 0.10 mg/dL (0.00-1.20)
[2017-03-15] MEDS: HUMULIN R SUBCUT PRN ×3 (06:02→17:21)
[2017-03-15] MEDS: SOLU-MEDROL 125 MG IVP SCH ×3 (06:02→21:03)
[2017-03-15] MEDS: SYNTHROID PO SCH (06:03)
[2017-03-15] MEDS ORDERED: ZOFRAN 4 MG/2 ML IVP STA (06:07)
[2017-03-15] MEDS: ADVAIR 100-50 DISKUS IH SCH ×2 (08:18→21:03)
[2017-03-15] MEDS: NEURONTIN PO SCH ×3 (08:18→21:02)
[2017-03-15] MEDS: SPIRIVA IH SCH (08:18)
[2017-03-15] MEDS: MICRO-K CAP PO SCH (08:19)
[2017-03-15] MEDS: OMEGA-3 FISH OIL PO SCH (08:19)
[2017-03-15] MEDS: ROCEPHIN 1 GM in SODIUM CHLORIDE 50 ML IV SCH (08:20)
[2017-03-15] MEDS: GLUCOPHAGE PO SCH (08:20)
[2017-03-15] MEDS: COZAAR PO SCH (08:20)
[2017-03-15] MEDS: CARDIZEM PO SCH ×2 (08:20→21:03)
[2017-03-15] MEDS: ZOCOR PO SCH (08:20)
[2017-03-15] MEDS: ZITHROMAX 500 MG in SODIUM CHLORIDE 250 ML IV SCH (09:09)
[2017-03-15] MEDS: VALIUM PO PRN ×3 (09:19→21:03)
--- NOTE | 2017-03-15 10:08 | PCM.PROG ---
Attending Provider: ATTENDING PROVIDER: Dr. OMI GOLDEN DATE OF SERVICE: 03/15/17 SUBJECTIVE: This 71 year old WHITE/ F was hospitalized 03/13/17. The patient is hospitalized with pneumonia. She has no symptoms of pneumonia or bronchitis and is a lot better. She is oriented times three. REVIEW OF SYSTEMS: CONSTITUTIONAL: No night sweats. No fatigue, malaise, lethargy. No fever or chills. HEENT: Eyes: No visual changes. No eye pain. No eye discharge. ENT: No runny nose. No epistaxis. No sinus pain. No odynophagia. No congestion. RESPIRATORY: No cough, no congestion. No hemoptysis. CARDIOVASCULAR: No angina symptoms. No CHF symptoms. No atypical chest pain for CAD. No palpitations. No shortness of breath. GASTROINTESTINAL: No abdominal pain. No nausea or vomiting. No diarrhea or constipation. No hematemesis. No hematochezia. GENITOURINARY: No urgency. No frequency. No dysuria. No hematuria. No obstructive symptoms. No discharge. No pain. No significant abnormal bleeding. MUSCULOSKELETAL: No musculoskeletal pain; no joint swelling. NEUROLOGICAL: Awake, alert, oriented to time, place and person. No headache. No neck pain. No syncope. No seizures. No dizziness. PSYCHIATRIC: Not anxious. No depression. No suicidal thoughts. No homicidal thoughts. SKIN: No rash. No lesions. No wounds. ENDOCRINE: No unexplained weight loss. No weight gain. HEMATOLOGIC/LYMPHATIC: No anemia. No purpura. No petechiae. No prolonged or excessive bleeding. No palpable lymph nodes. PHYSICAL EXAMINATION: GENERAL: The patient is awake, alert and oriented, lying/sitting in bed in no distress. VITAL SIGNS: Temperature 96.9 F, Pulse 94, Respiratory Rate 16, BP 143/73, Pulse Ox 98% HEENT: Head normocephalic, atraumatic. Eyes: Extraocular muscles are intact. Pupils are equal, round and reactive to light and accommodation. Ears: No lesions. Nose appeared normal. Throat: No exudate or erythema. NECK: Supple. No JVD, no carotid bruit. No lymphadenopathy or thyromegaly. LUNGS: Clear to auscultation. Percussion note normal. Chest symmetrical. HEART: S1, S2, no S3. No murmurs. No cyanosis or clubbing. No ascites. Pulses: Dorsalis pedis and posterior tibial pulses +1 to +2 both sides. ABDOMEN: Soft. Non-tender. Bowel sounds active. No CVA tenderness. No mass felt. EXTREMITIES: No edema. Full range of motion of all extremities, equal. NEUROLOGIC: No focal deficit. Cranial nerves II through XII are grossly intact. No headache, no double vision or headache. SKIN: Not dry. Intact. Turgor-normal. LYMPHATIC: No palpable lymph nodes/no lymphedema. MUSCULOSKELETAL: Normal joints with no swelling. Muscle tone is normal. LAB REVIEW: 03/15/17 04:30 03/15/17 04:30 03/15/17 04:30: WBC 20.52 H D, RBC 3.71 L, Hgb 11.6 L, Hct 34.9 L, MCV 94.1, MCH 31.3 H, MCHC 33.2, RDW Coeff of Fawad 12.9, Plt Count 337, Immature Gran % ( Auto) 1.5, Neut % (Auto) 90.3, Lymph % (Auto) 6.1 L, [place] % (Auto) 1.9, Eos % ( Auto) 0.0, Baso % (Auto) 0.2, Immature Gran # (Auto) 0.3, Neut # 18.5 H, Lymph # 1.3, [place] # 0.4, Eos # 0.0, Baso # 0.0, Sodium 140, Potassium 4.8, Chloride 108 H, Carbon Dioxide 23, Anion Gap 13.8, BUN 13, Creatinine 0.78, Estimated GFR (MDRD) 73.00, BUN/Creatinine Ratio 16.66, Glucose 194 H, Calcium 10.6 H, Total Bilirubin < 0.10, AST 8 L, ALT 11 L, Alkaline Phosphatase 62, Total Protein 6.1, Albumin 2.8 L, Globulin 3.3, Albumin/Globulin Ratio 0.85 ASSESSMENT: 1. Pneumonia seems to be resolving. 2. Diabetes mellitus. 3. Hypertension. 4. Generalized anxiety disorder/depression being followed by Dr. Ramirez, Psychiatry and has been on Valium 3 times a day. PLAN: 1. D/C IV fluids 2. Repeat chest x-ray 3. Start Protonix 40 mg at nighttime 4. Valium 5 mg t.i.d. Plan and coordination of the patient's care discussed in the presence of Well Logging Captain and nurse. CONDITION: Stable SCRIBED BY: SHAKA JACINTO Manager Electronic scribed while in presence of service performed by Dr. OMI GOLDEN on 03/15/17 (0800)
--- NOTE | 2017-03-15 11:18 | PN ---
DATE OF SERVICE: 03/13/17 Admission SUBJECTIVE: The patient is an 71 year old white female was hospitalized through the emergency room after being seen by the ER attending with pneumonia. The patient has history of cough and congestion for last 5-7 days getting worse. The patient says that she has been coughing all night and practically not eating much. The patient is poor historian. REVIEW OF SYSTEMS: CONSTITUTIONAL: No night sweats. Fatigue and weakness. No fever or chills. HEENT: Eyes: No visual changes. No eye pain. No eye discharge. ENT: No runny nose. No epistaxis. No sinus pain. No sore throat. No odynophagia. No congestion. RESPIRATORY: Cough with congestion yellowish sputum production. No hemoptysis. CARDIOVASCULAR: No angina symptoms. No CHF symptoms. No atypical chest pain for CAD. No palpitations. Shortness of breath on exertion. Pleuritic type of chest pain, sharp shooting when she coughs. GASTROINTESTINAL: No abdominal pain. No nausea or vomiting. No diarrhea or constipation. No hematemesis. No hematochezia. Poor appetite. GENITOURINARY: No urgency. No frequency. No dysuria. No hematuria. No obstructive symptoms. No discharge. No pain. No significant abnormal bleeding. MUSCULOSKELETAL: No musculoskeletal pain; no joint swelling. NEUROLOGICAL: No headache. No neck pain. No syncope. No seizures. No dizziness. PSYCHIATRIC: Not anxious. No depression. No suicidal thoughts. No homicidal thoughts. SKIN: No rash. No lesions. No wounds. ENDOCRINE: No unexplained weight loss. No weight gain. HEMATOLOGIC/LYMPHATIC: No anemia. No purpura. No petechiae. No prolonged or excessive bleeding. No palpable lymph nodes. ALLERGIES: Albuterol; she gets rash MEDICATIONS: Metformin 500mg Po daily Cardizem 30mg PO twice a day Advair 150mg one puff twice a day Neurontin 100mg three times a day Synthroid daily Losartan 50mg PO daily Klor-Con 10mg one teaspoon full daily Simvastatin 20mg PO daily Spiriva 180mcg PO daily Oxycodone 10-325mg Q 6 hours PRN Trazodone 150mg PO daily Brovana 1 inhalation daily Xopenex Q 8 Lexapro 10mg at bedtime Imipramine 100mg at bedtime Valium 10mg PO three times a day PHYSICAL EXAMINATION: GENERAL: The patient is oriented to time, place and person. VITAL SIGNS: Temperature 98, pulse 88, respiratory rate 15, blood pressure 150/ 60 and pulse ox 94% HEENT: Head normocephalic, atraumatic. Eyes: Extraocular muscles are intact. Pupils are equal, round and reactive to light and accommodation. Ears: No lesions. Nose appeared normal. Throat: No exudate or erythema. NECK: Supple. No JVD, no carotid bruit. No lymphadenopathy or thyromegaly. FACE: Symmetrical looks somewhat pale. LUNGS: Decreased breath sounds but clear to auscultation. Percussion note normal. Chest symmetrical. HEART: S1, S2, no S3. No murmurs. No cyanosis or clubbing. No ascites. Pulses: Dorsalis pedis and posterior tibial pulses +1 to +2 both sides. ABDOMEN: Soft. Nontender. Bowel sounds active. No CVA tenderness. No mass felt. EXTREMITIES: No edema. Full range of motion of all extremities, equal. Moving all extremities localizing neurological signs. NEUROLOGIC: No focal deficit. Cranial nerves II through XII are grossly intact. No headache, no double vision or headache. SKIN: Dry. Intact. Turgor - normal. LYMPHATIC: No palpable lymph nodes/no lymphedema. MUSCULOSKELETAL: Normal joints with no swelling. Muscle tone is normal. ASSESSMENT: 1. Acute bronchitis/ pneumonitis 2. Chronic lung disease 3. Diabetes Mellitus 4. Hypertension 5. Hypothyroidism 6. Generalized Osteoarthritis 7. Generalized anxiety disorder PLAN: 1. Continue all the medication 2. Continue Cardizem 3. Continue NEBS treatment 4. Rocephin IV 5. Zithromax PO 6. Continue Cozaar 7. Glucophage 8. Continue the Solu-Medrol 125mg Q 8hours 9. Monitor telemetry CONDITION: Stable TIME SPENT: More than 30 minutes. Plan and coordination of the patient's care discussed in the presence of nurse. DAMI
--- NOTE | 2017-03-15 14:22 | DI ---
Exam: Two x-rays of the chest. Comparison: 03/13/2017. Reason for exam: Pneumonia with coughing. FINDINGS: No pneumothorax or pleural effusion. There is similar appearing air space opacities in t he perihilar and right lung base. The left lung is clear. The cardiac silhouette is not enlarged. Impression: Similar appearing right perihilar consolidation consistent with pneumonia. Imaging fin dings are not significantly changed compared to the Chest x-ray performed on 03/13/2017.
[2017-03-15] MEDS: PROTONIX PO SCH (21:02)
[2017-03-15] MEDS: DESYREL PO SCH (21:02)
[2017-03-15] MEDS: IMIPRAMINE PAMOATE 100 MG PO SCH (22:38)
[2017-03-16 04:38] LABS: HEMATOCRIT 35.8 % (37.0-47.0); MEAN CORPUSCULAR HEMOGLOBIN 31.8 pg (27.0-31.0); MEAN CORPUSCULAR HGB CONC 33.5 (31.8-35.4); PLATELET COUNT 348 10^3/uL (140-440); RED BLOOD COUNT 3.77 10^6/ul (4.20-5.40); WHITE BLOOD COUNT 20.49 K/ul (4.6-10.2)
[2017-03-16] MEDS: XOPENEX 1.25 MG NEB SCH ×3 (05:00→22:55)
[2017-03-16 05:01] LABS: ALANINE AMINOTRANSFERASE 11 U/L (12-78); ALBUMIN 2.9 g/dL (3.4-5.0); ALBUMIN/GLOBULIN RATIO 0.94; ALKALINE PHOSPHATASE 63 U/L (53-141); ANION GAP 12.7; ASPARTATE AMINO TRANSFERASE 10 U/L (15-37); BLOOD UREA NITROGEN 20 mg/dL (7-18); CALCIUM 10.9 mg/dL (8.2-10.2); CARBON DIOXIDE 25 mmol/L (23-31); CHLORIDE 106 mmol/L (98-107); CREATININE 0.84 mg/dL (0.60-1.30); GLUCOSE 175 mg/dL (82-115); POTASSIUM 4.7 mmol/L (3.5-5.10); SODIUM 139 mmol/L (136-145)
[2017-03-16 05:15] LABS: BILIRUBIN,TOTAL < 0.10 mg/dL (0.00-1.20)
[2017-03-16 05:17] LABS: ANISOCYTOSIS NOT PRESENT (NOT PRESENT)
[2017-03-16] MEDS: SOLU-MEDROL 125 MG IVP SCH (05:40)
[2017-03-16] MEDS: SYNTHROID PO SCH (05:40)
[2017-03-16] MEDS: HUMULIN R SUBCUT PRN ×4 (05:47→20:24)
[2017-03-16] MEDS: PERFOROMIST NEB SCH (05:49)
[2017-03-16] MEDS: ROCEPHIN 1 GM in SODIUM CHLORIDE 50 ML IV SCH (09:07)
[2017-03-16] MEDS: OMEGA-3 FISH OIL PO SCH (09:08)
[2017-03-16] MEDS: ADVAIR 100-50 DISKUS IH SCH ×2 (09:08→20:25)
[2017-03-16] MEDS: MICRO-K CAP PO SCH (09:08)
[2017-03-16] MEDS: SPIRIVA IH SCH (09:08)
[2017-03-16] MEDS: CARDIZEM PO SCH ×2 (09:08→20:26)
[2017-03-16] MEDS: ZOCOR PO SCH (09:08)
[2017-03-16] MEDS: GLUCOPHAGE PO SCH (09:08)
[2017-03-16] MEDS: COZAAR PO SCH (09:09)
[2017-03-16] MEDS: NEURONTIN PO SCH ×3 (09:09→20:26)
--- NOTE | 2017-03-16 09:19 | PCM.PROG ---
Attending Provider: ATTENDING PROVIDER: Dr. OMI GOLDEN DATE OF SERVICE: 03/16/17 SUBJECTIVE: This 71 year old WHITE/ F was hospitalized 03/13/17. The patient is hospitalized with pneumonia. Condition has steadily improved. Chest x-ray doesn 't show improvement but clinically she looks better. She is talking, and is up and about. REVIEW OF SYSTEMS: CONSTITUTIONAL: No night sweats. No fatigue, malaise, lethargy. No fever or chills. HEENT: Eyes: No visual changes. No eye pain. No eye discharge. ENT: No runny nose. No epistaxis. No sinus pain. No odynophagia. No congestion. RESPIRATORY: No cough, no congestion. No hemoptysis. CARDIOVASCULAR: No angina symptoms. No CHF symptoms. No atypical chest pain for CAD. No palpitations. No shortness of breath. GASTROINTESTINAL: Appetite is improved. No abdominal pain. No nausea or vomiting. No diarrhea or constipation. No hematemesis. No hematochezia. GENITOURINARY: No urgency. No frequency. No dysuria. No hematuria. No obstructive symptoms. No discharge. No pain. No significant abnormal bleeding. MUSCULOSKELETAL: No musculoskeletal pain; no joint swelling. NEUROLOGICAL: Awake, alert, oriented to time, place and person. No headache. No neck pain. No syncope. No seizures. No dizziness. PSYCHIATRIC: Not anxious. No depression. No suicidal thoughts. No homicidal thoughts. SKIN: No rash. No lesions. No wounds. ENDOCRINE: No unexplained weight loss. No weight gain. HEMATOLOGIC/LYMPHATIC: No anemia. No purpura. No petechiae. No prolonged or excessive bleeding. No palpable lymph nodes. PHYSICAL EXAMINATION: GENERAL: The patient is awake, alert and oriented, lying in bed in no distress. VITAL SIGNS: Temperature 97.7 F, Pulse 85, Respiratory Rate 16, BP 149/80, Pulse Ox 94% HEENT: Head normocephalic, atraumatic. Eyes: Extraocular muscles are intact. Pupils are equal, round and reactive to light and accommodation. Ears: No lesions. Nose appeared normal. Throat: No exudate or erythema. NECK: Supple. No JVD, no carotid bruit. No lymphadenopathy or thyromegaly. LUNGS: More air entry with mild expiratory wheeze. Percussion note normal. Chest symmetrical. HEART: S1, S2, no S3. No murmurs. No cyanosis or clubbing. No ascites. Pulses: Dorsalis pedis and posterior tibial pulses +1 to +2 both sides. ABDOMEN: Soft. Non-tender. Bowel sounds active. No CVA tenderness. No mass felt. EXTREMITIES: No edema. Full range of motion of all extremities, equal. NEUROLOGIC: No focal deficit. Cranial nerves II through XII are grossly intact. No headache, no double vision or headache. SKIN: Not dry. Intact. Turgor-normal. LYMPHATIC: No palpable lymph nodes/no lymphedema. MUSCULOSKELETAL: Normal joints with no swelling. Muscle tone is normal. LAB REVIEW: 03/16/17 04:20 03/16/17 04:20 03/16/17 04:20: WBC 20.49 H, RBC 3.77 L, Hgb 12.0, Hct 35.8 L, MCV 95.0, MCH 31.8 H, MCHC 33.5, RDW Coeff of Fawad 13.1, Plt Count 348, Neutrophils % (Manual) 90.0 H, Lymphocytes % (Manual) 9.0 L, Reactive Lymphocytes 1.0, Sodium 139, Potassium 4.7, Chloride 106, Carbon Dioxide 25, Anion Gap 12.7, BUN 20 H, Creatinine 0.84, Estimated GFR (MDRD) 67.00, BUN/Creatinine Ratio 23.80, Glucose 175 H, Calcium 10.9 H, Total Bilirubin < 0.10, AST 10 L, ALT 11 L, Alkaline Phosphatase 63, Total Protein 6.0, Albumin 2.9 L, Globulin 3.1, Albumin /Globulin Ratio 0.94 ASSESSMENT: 1. Pneumonia seems to be resolving 2. Diabetes mellitus 3. Hypertension 4. Generalized anxiety disorder/depression being followed by Dr. Ramirez, Psychiatry, and has been on Valium 3 times a day. PLAN: 1. Leukocytosis is likely from steroid therapy so will D/C Solu-Medrol 2. Continue antibiotics 3. Appetite improved likely discharge tomorrow 4. Encouraged to walk 5. Prednisone 10 mg b.i.d. Plan and coordination of the patient's care discussed in the presence of Fund Manager and nurse. CONDITION: Stable SCRIBED BY: SHAKA JACINTO, High School Principal scribed while in presence of service performed by Dr. OMI GOLDEN on 03/16/17 ([id number])
[2017-03-16] MEDS: PERCOCET 10-325 PO PRN ×2 (09:39→18:58)
[2017-03-16] MEDS: PREDNISONE PO SCH ×2 (12:10→17:03)
[2017-03-16] MEDS: VALIUM PO PRN (18:58)
[2017-03-16] MEDS: DESYREL PO SCH (20:25)
[2017-03-16] MEDS: PROTONIX PO SCH (20:26)
[2017-03-16] MEDS: IMIPRAMINE PAMOATE 100 MG PO SCH (20:38)
[2017-03-17] MEDS: XOPENEX 1.25 MG NEB SCH (05:00)
[2017-03-17 05:13] LABS: BASOPHILS # (AUTO) 0.1 K/uL (0-0.2); BASOPHILS % (AUTO) 0.6 % (0.0-3.0); HEMATOCRIT 37.2 % (37.0-47.0); HEMOGLOBIN 12.2 g/dl (12.0-16.0); IMMATURE GRANULOCYTE % (AUTO) 6.8 % (0.0-5.0); LYMPHOCYTES # (AUTO) 2.4 K/uL (0.60-3.4); LYMPHOCYTES % (AUTO) 15.6 (10.0-50.0); MEAN CORPUSCULAR HEMOGLOBIN 31.4 pg (27.0-31.0); MEAN CORPUSCULAR HGB CONC 32.8 (31.8-35.4); MEAN CORPUSCULAR VOLUME 95.6 fl (81.0-99.0); MONOCYTES # (AUTO) 0.9 K/uL (0.4-2.0); MONOCYTES % (AUTO) 5.9 (0-10); NEUTROPHILS # (AUTO) 11.1 K/ul (2.0-6.9); NEUTROPHILS % (AUTO) 71.1; PLATELET COUNT 356 10^3/uL (140-440); RED BLOOD COUNT 3.89 10^6/ul (4.20-5.40); WHITE BLOOD COUNT 15.66 K/ul (4.6-10.2)
[2017-03-17] MEDS: PERFOROMIST NEB SCH (05:15)
[2017-03-17 05:28] LABS: ALBUMIN 2.9 g/dL (3.4-5.0); ALBUMIN/GLOBULIN RATIO 0.97; ANION GAP 12.7; BILIRUBIN,TOTAL 0.11 mg/dL (0.00-1.20); BUN/CREATININE RATIO 23.52; CALCIUM 10.7 mg/dL (8.2-10.2); CREATININE 0.85 mg/dL (0.60-1.30); POTASSIUM 4.7 mmol/L (3.5-5.10); TOTAL PROTEIN 5.9 g/dL (5.8-8.1)
[2017-03-17] MEDS: SYNTHROID PO SCH (05:31)
[2017-03-17] MEDS: PERCOCET 10-325 PO PRN (05:34)
[2017-03-17] MEDS: VALIUM PO PRN (05:35)
[2017-03-17] MEDS: ROCEPHIN 1 GM in SODIUM CHLORIDE 50 ML IV SCH (09:12)
[2017-03-17] MEDS: SPIRIVA IH SCH (09:12)
[2017-03-17] MEDS: NEURONTIN PO SCH (09:12)
[2017-03-17] MEDS: ADVAIR 100-50 DISKUS IH SCH (09:12)
[2017-03-17] MEDS: MICRO-K CAP PO SCH (09:13)
[2017-03-17] MEDS: COZAAR PO SCH (09:13)
[2017-03-17] MEDS: GLUCOPHAGE PO SCH (09:13)
[2017-03-17] MEDS: CARDIZEM PO SCH (09:13)
[2017-03-17] MEDS: OMEGA-3 FISH OIL PO SCH (09:13)
[2017-03-17] MEDS: PREDNISONE PO SCH (09:14)
[2017-03-17] MEDS: ZOCOR PO SCH (09:14)
[2017-03-17 09:48] VITALS: BP 151/77; TEMP 97.1
--- NOTE | 2017-03-17 10:16 | CM.DICTOOL ---
ADMISSION: 03/13/17 14:46 DISCHARGE: 03/17/17 DATE OF SERVICE: 03/17/17 FINAL DIAGNOSIS PNEUMONIA COPD (OXYGEN DEPENDENT) (DR. JANAY SMITH) SLEEP APNEA (USES C-PAP) HYPERTENSION PEPTIC ULCER DISEASE (DR. BURROWS) OSTEOARTHRITIS (DR. BLAIR MARTINO, PAIN MANAGEMENT) DEGENERATIVE DISC DISEASE-SPINE DM, TYPE 2 BIPOLAR DISORDER (DR. HARRISON) DEPRESSION/ANXIETY LAST VITALS Temp Pulse Resp BP Pulse Ox 97.9 F 89 18 146/81 H 96 03/17/17 05:31 03/17/17 05:31 03/17/17 05:31 03/17/17 05:31 03/17/17 05:31 ACTIVE MEDICATIONS Advair Diskus 250-50 mcg/dose IH 1 puff (BID) QAM and QPM Aformoterol Tartrate (Brovana) 1 vial IH DAILY Diazepam (Valium) 5 mg PO TID PRN (DOSE CHANGE) PRN Reason: ANXIETY Last Admin: 03/17/17 05:35 Dose: 5 mg Diltiazem HCl (Cardizem) 30 mg PO BID [facility] Last Admin: 03/17/17 09:13 Dose: 30 mg Ergocalciferol (Drisdol) 50,000 unit PO WEEKLY [facility] Fish Oil ([place]-3 Fish Oil) 1,000 mg PO DAILY [facility] Last Admin: 03/17/17 09:13 Dose: 1,000 mg Gabapentin (Neurontin) 100 mg PO TID [facility] Last Admin: 03/17/17 09:12 Dose: 100 mg Levothyroxine Sodium (Synthroid) 25 mcg PO QDAC [facility] Last Admin: 03/17/17 05:31 Dose: 25 mcg Losartan Potassium (Cozaar) 50 mg PO DAILY [facility] Last Admin: 03/17/17 09:13 Dose: 50 mg Metformin HCl (Glucophage) 500 mg PO DAILYWM [facility] Last Admin: 03/17/17 09:13 Dose: 500 mg Imipramine Pamoate [Imipramine Pamoate] 100 mg PO BEDTIME [facility] Last Admin: 03/16/17 20:38 Dose: Not Given Oxycodone/Acetaminophen (Percocet 10-325) 1 tab PO Q6H PRN PRN Reason: Severe Pain Last Admin: 03/17/17 05:34 Dose: 1 tab Omeprazole 40 mg PO BEDTIME [facility] Potassium Chloride (Micro-K Cap) 10 meq PO DAILY [facility] Last Admin: 03/17/17 09:13 Dose: 10 meq Prednisone (Prednisone) 10 mg PO DAILYWM X 5 DAYS EMMY (NEW) Last Admin: 03/17/17 09:14 Dose: 10 mg Fluticasone/Salmeterol (Advair 100-50 Diskus) 1 puff IH BID [facility] Last Admin: 03/17/17 09:12 Dose: 1 puff Simvastatin (Zocor) 20 mg PO DAILY [facility] Last Admin: 03/17/17 09:14 Dose: 20 mg Tiotropium [place] (Spiriva) 1 cap IH DAILY [facility] Last Admin: 03/17/17 09:12 Dose: 1 cap Trazodone HCl (Desyrel) 150 mg PO BEDTIME [facility] Last Admin: 03/16/17 20:25 Dose: 150 mg ALLERGIES albuterol Allergy (Intermediate, Verified 02/07/17 19:35) Rash NEW PRESCRIPTIONS: PLEASE NOTE THE REDUCTION IN YOUR VALIUM DOSE TO 5 MG, TAKE ONE TABLET BY MOUTH THREE TIMES DAILY IF NEEDED (PRN) NEW PRESCRIPTIONS: KEFLEX 500 MG, TAKE ONE CAPSULE BY MOUTH Q 12 HOURS FOR 5 DAYS PREDNISONE 10 MG, TAKE ONE TABLET BY MOUTH DAILY FOR 5 DAYS WITH FOOD SMOKING: FORMER SMOKER NONE CURRENTLY DISEASE SPECIFIC EDUCATION: PNEUMONIA REQUIRED OXYGEN USE CONTINUOUSLY AND NEED FOR COMPLIANCE HOME MEDICATIONS AND CHANGES MADE NEW PRESCRIPTIONS FOLLOW UP STEROID USE AND RISK FACTORS POSSIBLE WITH USE SUCH BONE DEMINERALIZATION, AVASCULAR NECROSIS AND CATARACTS LAB REVIEW: 03/17/17 04:18 03/17/17 04:18 03/17/17 04:18: WBC 15.66 H, RBC 3.89 L, Hgb 12.2, Hct 37.2, MCV 95.6, MCH 31.4 H, MCHC 32.8, RDW Coeff of Fawad 13.3, Plt Count 356, Immature Gran % (Auto) 6.8 H , Neut % (Auto) 71.1, Lymph % (Auto) 15.6, [place] % (Auto) 5.9, Eos % (Auto) 0.0, Baso % (Auto) 0.6, Immature Gran # (Auto) 1.1 H, Neut # 11.1 H, Lymph # 2.4, [place] # 0.9, Eos # 0.0, Baso # 0.1, Sodium 141, Potassium 4.7, Chloride 104, Carbon Dioxide 29, Anion Gap 12.7, BUN 20 H, Creatinine 0.85, Estimated GFR ( MDRD) 66.00, BUN/Creatinine Ratio 23.52, Glucose 107 D, Calcium 10.7 H, Total Bilirubin 0.11, AST 9 L, ALT 12, Alkaline Phosphatase 58, Total Protein 5.9, Albumin 2.9 L, Globulin 3.0, Albumin/Globulin Ratio 0.97 PLAN: DISCHARGE HOME TODAY RETURN TO SEE DR. GOLDEN IN ONE WEEK. PLEASE PHONE THE OFFICE TO SCHEDULE YOUR APPOINTMENT [phone] RESUME YOUR HOME MEDICATIONS PER LIST PROVIDED BY THE NURSING STAFF PLEASE NOTE THE REDUCTION IN YOUR VALIUM DOSE TO 5 MG, TAKE ONE TABLET BY MOUTH THREE TIMES DAILY IF NEEDED (PRN) NEW PRESCRIPTIONS: KEFLEX 500 MG, TAKE ONE CAPSULE BY MOUTH Q 12 HOURS FOR 5 DAYS PREDNISONE 10 MG, TAKE ONE TABLET BY MOUTH DAILY FOR 5 DAYS WITH FOOD ACTIVITY: GET PLENTY OF REST AT HOME. GRADUALLY INCREASE YOUR ACTIVITY LEVEL ACCORDING TO YOUR TOLERATION DIET: CONSISTENT CARBS HEALTHY HEART SUMMARY: THE PATIENT IS ALERT AND ORIENTED X3. SHE CURRENTLY RESIDES AT HOME WITH HER SIGNIFICANT OTHER. SHE IS INDEPENDENT WITH ADL'S. SHE HAS AT HOME OXYGEN AND NEBULIZER WITH MEDICATIONS FOR USE. SHE ALSO HAS A GLUCOMETER WITH BLOOD SUGAR TESTING SUPPLIES AVAILABLE. SHE WILL NOT REQUIRE HOME HEALTH OR HOMEMAKING SERVICES AT THIS TIME. SHE DESIRES TO RETURN TO HER HOME AT DISCHARGE. MS. [employer] SKIN TURGOR IS INTACT AND WITHOUT DECUBITUS ULCERS. SHE IS WELL HYDRATED AND EATING WELL. SHE IS AWARE AND AGREEABLE FOR TODAY'S DISCHARGE PLANS. SHE REMAINS A FULL CODE AT DISCHARGE. OMI GOLDEN M.D.
[2017-03-20] MEDS ORDERED: DRISDOL PO SCH (09:00)
[2017-03-20] MEDS ORDERED: NON-FORMULARY MEDICATION (Cholecalciferol (Vitamin D3) [Vitamin D3] 1 CAP) PO SCH ×22 (09:00)
--- NOTE | 2017-03-21 08:38 | DS ---
DATE OF SERVICE: 03/17/17 FINAL DIAGNOSIS: 1. Pneumonia 2. COPD(oxygen dependent) (Dr. Adam Bai) 3. Sleep apnea (Uses CPAP) 4. Hypertension 5. Peptic Ulcer Disease (Dr. Spann) 6. Osteoarthritis (Dr. Galo Sanchez, Pain Management 7. Degenerative Disc disease- Spine 8. Diabetes Mellitus, type 2 9. Bipolar Disorder (Dr. Ramirez) 10.Depression/Anxiety LAST VITALS: Temperature 97.9, pulse 89, respiratory rate 18, blood pressure 146//81 and pulse ox 96%. DISCHARGE INSTRUCTIONS: Discharge home today. Return to see Dr. blackwood in one week. Resume home medications as per list provided by the nursing staff. Note reduction in Valium dose to 5mg, take one tablet by mouth three times daily if needed MEDICATIONS AT DISCHARGE: Advair Diskus 250-50mcg one puff twice a day QAM and QPM Brovana 1 vial IH daily Valium 5mg PO three times a day PRN Cardizem 30mg PO twice a day Drisdol 50,000 unit PO weekly Fish Oil 1,000mg Po daily Neurontin 100mg PO three times a day Synthroid 25 mcg PO QDAC Cozaar 50mg PO daily Glucophage 500mg PO daily Imipramine Pamoate 100mg Po bedtime Percocet 10-325 one tablet PO Q 6 hours PRN Omeprazole 40mg PO bedtime Micro-K cap 10 meq PO daily Prednisone 10mg PO daily x 5 days Advair 100-50 one puff IH twice a day Zocor 20ng PO daily Spiriva 1 capsule IH daily Desyrel 150mg PO bedtime ALLERGIES: Albuterol NEW PRESCRIPTIONS: Please note reduction in Valium dose to 5mg take one tablet by mouth three times a day if needed (PRN) Keflex 500mg take one capsule by mouth Q 12 hours for 5 days Prednisone 10mg take one tablet by mouth daily for 5 days with food DIET INSTRUCTIONS: Consistent Carbs Healthy heart ACTIVITY: Get plenty of rest at home. Gradually increase activity level according to toleration SMOKING: Former smoker None currently DISEASE SPECIFIC EDUCATION: Pneumonia Required oxygen use continuously and need for compliance Home medications and changes made. New prescriptions Followup Steroid use and risk factors possible with use such as bone demineralization, avascular necrosis and cataracts. HOSPITAL COURSE: The patient is a 71 year old white female hospitalized with acute bronchitis and pneumonitis. The aptient was treated with IV antibiotics and steroids. The patient was treated with Zithromax and Rocephin. The patient's condition improved. At the time of discharge she was up and about. Her lungs are practically clear even though the X-ray findings didn't match with the clinically findings that is kind of expected. The patient's appetite had improved and practically no cough. She was discharged on Keflex and steroids. She is to be followed as an outpatient. On discharge the patient's hgb was 12.2 , hct 37, WBC 15,000 normal differential, creatinine 0.8, BUN 20 and potassium 4.7. Her WBC was elevated because of steroid use. CONDITION: Stable. TIME SPENT: More than 60 minutes. [facility]
--- NOTE | 2017-03-21 11:11 | PN ---
03/13/17: Level 5 03/14/17: Intermediate 03/15/17: Intermediate 03/16/17: Intermediate 03/17/17: D as in discharge MTDD
== END 2017-03-17 11:00 | disposition home or self-care (01) | DRG 194 ==
LOC: ED 11:49 → MEDSURG B 14:46
PROVIDERS: ADMIT Internal Medicine; ATTEND Internal Medicine
DX: J18.9 Pneumonia, unspecified organism (principal); J44.0 Chronic obstructive pulmonary disease with (acute) lower respiratory infection; J20.9 Acute bronchitis, unspecified; E11.9 Type 2 diabetes mellitus without complications; G47.30 Sleep apnea, unspecified; K27.9 Peptic ulcer, site unspecified, unspecified as acute or chronic, without hemorrhage or perforation; M19.90 Unspecified osteoarthritis, unspecified site; M47.9 Spondylosis, unspecified; F31.9 Bipolar disorder, unspecified; F41.8 Other specified anxiety disorders; Z87.891 Personal history of nicotine dependence; Z79.84 Long term (current) use of oral hypoglycemic drugs; Z79.899 Other long term (current) drug therapy; Z99.89 Dependence on other enabling machines and devices
CPT/HCPCS: 36415; 80053; 82550; 82962; 83605; 83880; 84145; 84484; 85007; 85025; 87040; 87070; 93005; 93010; 94640; 96365; 99284

== ENCOUNTER 2017-03-28 10:02 | Emergency (ER) | payer OTHER ==
[2017-03-28 10:11] VITALS: BP 114/66; TEMP 100.7; BMI 30.7
[2017-03-28 10:55] LABS: BASOPHILS # (AUTO) 0.1 K/uL (0-0.2); BASOPHILS % (AUTO) 0.2 % (0.0-3.0); EOSINOPHILS # (AUTO) 0.1 K/ul (0.0-0.7); EOSINOPHILS % (AUTO) 0.3 % (0.0-7.0); HEMATOCRIT 37.9 % (37.0-47.0); HEMOGLOBIN 12.6 g/dl (12.0-16.0); LYMPHOCYTES # (AUTO) 1.8 K/uL (0.60-3.4); LYMPHOCYTES % (AUTO) 6.9 (10.0-50.0); MEAN CORPUSCULAR HEMOGLOBIN 31.3 pg (27.0-31.0); MEAN CORPUSCULAR HGB CONC 33.2 (31.8-35.4); MEAN CORPUSCULAR VOLUME 94.3 fl (81.0-99.0); MONOCYTES % (AUTO) 3.9 (0-10); NEUTROPHILS % (AUTO) 87.7; PLATELET COUNT 274 10^3/uL (140-440); RED BLOOD COUNT 4.02 10^6/ul (4.20-5.40); WHITE BLOOD COUNT 26.18 K/ul (4.6-10.2)
[2017-03-28 11:03] LABS: ABG BASE EXCESS -5 (-2.0-2.0); ABG HCO3 19.7 (22.0-26.0); ABG PCO2 30.8 mmHg (35-45); ABG PH 7.414 (7.35-7.45); ABG TCO2 21 (22.0-28.0)
[2017-03-28 11:12] LABS: ALBUMIN 3.3 g/dL (3.4-5.0); ALBUMIN/GLOBULIN RATIO 0.97; ANION GAP 11.9; BILIRUBIN,TOTAL 0.51 mg/dL (0.00-1.20); BUN/CREATININE RATIO 16.85; CALCIUM 10.3 mg/dL (8.2-10.2); CREATININE 0.89 mg/dL (0.60-1.30); POTASSIUM 3.9 mmol/L (3.5-5.10); TOTAL PROTEIN 6.7 g/dL (5.8-8.1)
[2017-03-28 11:18] LABS: CREATINE KINASE 16 U/L
--- NOTE | 2017-03-28 11:23 | CT ---
EXAM: CT chest without contrast. HISTORY: Cough. Hemoptysis. COMPARISON: Radiograph 03/15/2017. CT 05/29/2016. TECHNIQUE: Multiple axial images of the chest were obtained without intravenous contrast. Images w ere reformatted in the sagittal and coronal planes. FINDINGS: Evaluation for lymphadenopathy is limited by lack of intravenous contrast. Pretracheal l ymph node measures 1.1 cm short axis on axial image 18. Calcified mediastinal and hilar lymph nodes are also present. Heart size is normal. No large pericardial effusion identified. Atheroscleroti c calcifications noted. There are moderate emphysematous changes present bilaterally. Ground-glass opacities are seen throughout both lungs, greater in the right lung. No pleural effusion or pneumot horax detected. Calcified granulomatous changes are present. Limited images of the upper abdomen demonstrate moderate hiatal hernia. Duodenal diverticulum noted . Degenerative changes present in the spine. IMPRESSION: 1. Bilateral ground-glass opacities, greater on the right, suggesting pneumonia. Follow-up CT in 3 months recommended for reassessment. 2. Emphysema and mediastinal lymphadenopathy, stable from prior study.
[2017-03-28 11:35] LABS: PARTIAL THROMBOPLASTIN TIME 27.5 SEC (23.9-40.0); PROTHROMBIN TIME 11.5 SEC (9.3-11.0)
--- NOTE | 2017-03-28 12:17 | ED.PDOC ---
General ED Provider: Dr. VIC HANSEN Chief Complaint: Respiratory Complaint Stated Complaint: cough Time Seen by Physician: 10:00 (seen with nursing staff cough consists of minimal blood ) Mode of Arrival: Walk-In Information Source: Patient Exam Limitations: No limitations Primary Care Provider: OMI GOLDEN Nursing and Triage Documentation Reviewed and Agree: Yes (recentlyD/C from hospital) Respiratory Complaint Exam - Respiratory Complaint/Exam Onset/Duration: 1 day Symptoms Are: Resolved Timing: Intermittent Initial Severity: Mild Current Severity: Mild Location: Chest Character: Reports: Non-productive cough Aggravating: Reports: None Alleviating: Reports: None Associated Signs and Symptoms: Denies: Rapid breathing, Dyspnea, Fever, Chills, Chest pain, Pleuritic chest pain, Wheezing, Hemoptysis, Dizziness, Calf pain, Calf swelling, Edema, URI, Nasal congestion, Hoarseness, Sinus discomfort, Vomiting, Sore throat, Weight loss, Decreased oral intake, Increased thirst, Increased appetite, Increased urination Related History: Reports: Similar episode History of Healthcare-Acquired Pneumonia: No Related Surgical History: Reports: None Pulmonary Embolism Risk Factors: None Tuberculosis Risk Factors: Reports: Chronic Resp. Faliure Review of Systems - Review Of Systems Constitutional: Reports: No symptoms Eyes: Reports: No symptoms Ears, Nose, Mouth, Throat: Reports: No symptoms Respiratory: Reports: Cough Cardiac: Reports: No symptoms GI: Reports: No symptoms : Reports: No symptoms Musculoskeletal: Reports: No symptoms Skin: Reports: No symptoms Neurological: Reports: No symptoms Endocrine: Reports: No symptoms Hematologic/Lymphatic: Reports: No symptoms All Other Systems: Reviewed and Negative Past Medical History - Past Medical History Previously Healthy: No Endocrine: Reports: DM 2, Hypothyroid, Other (GOUT ) Cardiovascular: Reports: None Respiratory: Reports: COPD, Bronchitis (bronchitis several times), Pneumonia Hematological: Reports: None Gastrointestinal: Reports: GERD Genitourinary: Reports: None Neuro/Psych: Reports: Depression, Other ( HEAD INJURY 2-3 MONTHS AGO FROM FALL) Musculoskeletal: Reports: Arthritis, Other Cancer: Reports: None Last Menstrual Period: menopause Other Pertinent Past Medical History: HYPOTENSION (PAST HISTORY OF HYPERTENSION ) - Surgical History General Surgical History: Reports: Hysterectomy ( hyst 38 years old), Orthopedic ( right foot surgery at 50 years old), Other (BILATERAL CATARACT EXTRACTIONS), Unknown - Family History Family History: Reports: Unknown - Social History Smoking Status: Former smoker Hx Substance Use: No Alcohol Screening: None Physical Exam - Physical Exam Appearance: Well-appearing, No pain distress, Well-nourished Eyes: WIL, EOMI, Conjunctiva clear ENT: Ears normal, Nose normal, Oropharynx normal Respiratory: Airway patent, Breath sounds clear, Breath sounds equal, Respirations nonlabored Cardiovascular: RRR, Pulses normal, No rub, No murmur GI/: Soft, Nontender, No masses, Bowel sounds normal, No Organomegaly Musculoskeletal: Normal strength, ROM intact, No edema, No calf tenderness Skin: Warm, Dry, Normal color Neurological: Sensation intact, Motor intact, Reflexes intact, Cranial nerves intact, Alert, Oriented Psychiatric: Affect appropriate, Mood appropriate Interpretation - Radiology Interpretation Radiology Interpretation By: Radiologist Critical Care Note - Critical Care Note Total Time (mins): 0 Course - Course Hematology/Chemistry: 03/28/17 10:50 03/28/17 10:50 Orders, Labs, Meds: Lab Review 03/28/17 10:50 WBC 26.18 H RBC 4.02 L Hgb 12.6 Hct 37.9 MCV 94.3 MCH 31.3 H MCHC 33.2 RDW Coeff of Fawad 14.1 Plt Count 274 Immature Gran % (Auto) 1.0 Neut % (Auto) 87.7 Lymph % (Auto) 6.9 L [place] % (Auto) 3.9 Eos % (Auto) 0.3 Baso % (Auto) 0.2 Immature Gran # (Auto) 0.3 Neut # 23.0 H Lymph # 1.8 [place] # 1.0 Eos # 0.1 Baso # 0.1 PT 11.5 H INR 1.12 APTT 27.5 Puncture Site Lr O2 Saturation 92.0 L ABG pH 7.414 ABG pCO2 30.8 L ABG pO2 61.0 L ABG HCO3 19.7 L ABG Total CO2 21 L ABG Base Excess -5 L Matt Test + FiO2 % 21.0 Sodium 135 L Potassium 3.9 Chloride 106 Carbon Dioxide 21 L Anion Gap 11.9 BUN 15 Creatinine 0.89 Estimated GFR (MDRD) 63.00 BUN/Creatinine Ratio 16.85 Glucose 118 H Lactic Acid 7.8 Calcium 10.3 H Total Bilirubin 0.51 AST 12 L ALT 17 Alkaline Phosphatase 63 Total Creatine Kinase 16 Troponin I < 0.0100 Total Protein 6.7 Albumin 3.3 L Globulin 3.4 Albumin/Globulin Ratio 0.97 Procalcitonin 13.49 Orders Category Date Time Status ABG DRAW REQUEST Stat CARDIO 03/28/17 10:29 Completed EKG-(ED ONLY) Stat CARDIO 03/28/17 10:28 Completed ABG Stat LAB 03/28/17 10:50 Completed BLOOD CULTURE Stat LAB 03/28/17 10:50 Received CBC W/ AUTO DIFF Stat LAB 03/28/17 10:50 Completed COMPREHENSIVE METABOLIC PANEL Stat LAB 03/28/17 10:50 Completed CREATINE KINASE Stat LAB 03/28/17 10:50 Completed LACTIC ACID Stat LAB 03/28/17 10:50 Completed PARTIAL THROMBOPLASTIN TIME Stat LAB 03/28/17 10:50 Completed PROCALCITONIN Stat LAB 03/28/17 10:50 Completed PT WITH INR Stat LAB 03/28/17 10:50 Completed TROPONIN I Stat LAB 03/28/17 10:[address] CHEST W/O CONTRAST Stat RADS 03/28/17 10:28 Completed Vital Signs: Temp Pulse Resp BP Pulse Ox 03/28/17 10:03 100.7 F H 115 H 24 114/66 92 L Departure - Departure Time of Disposition: 12:17 (pmd stated to give rocephin and start out pt keflex and he will see them in the emergency room) Disposition: HOME SELF-CARE Discharge Problem: Bronchitis Instructions: Hemoptysis (ED) Condition: Good Pt referred to PMD for follow-up: No Additional Instructions: Please call your Family Physician as soon as possible to schedule a follow-up appointment. Allergies/Adverse Reactions: Allergies albuterol Allergy (Intermediate, Verified 03/28/17 10:12) Rash nebs tx causes rash Home Medications: Ambulatory Orders Metformin HCl [Glucophage] 500 mg PO DAILYWM #30 tablet 08/05/15 Diltiazem HCl [Cardizem] 30 mg PO BID 03/04/16 Fluticasone/Salmeterol 100/50 [Advair 100-50 Diskus] 1 puff IH BID 03/04/16 Gabapentin [Neurontin] 100 mg PO TID 03/04/16 Levothyroxine Sodium [Synthroid] 1 tab PO DAILY 03/04/16 Losartan Potassium [Cozaar] 50 mg PO DAILY 03/04/16 Loda-3 Fatty Acids/Fish Oil [Fish Oil 1,000 mg Capsule] 1,000 mcg PO DAILY 04/14 Potassium Chloride [Klor-Con 10] 1 tab PO DAILY 03/04/16 Simvastatin 20 mg PO DAILY 03/04/16 Tiotropium [place] [Spiriva] 18 mcg IH DAILY 03/04/16 Cholecalciferol (Vitamin D3) [Vitamin D3] 1 cap PO WEEKLY 03/21/16 Oxycodone-Acetaminophen 10-325 [Percocet 10-325] 1 tab PO Q6H 05/29/16 Trazodone HCl 150 mg PO BEDTIME 05/29/16 Arformoterol Tartrate [Brovana] 1 vial IH DAILY #30 vial.neb 06/02/16 Escitalopram Oxalate [Lexapro] 10 mg PO BEDTIME #30 06/16/16 Imipramine Pamoate 100 mg PO BEDTIME #30 06/16/16 Albuterol Sulfate [Proair Hfa] 1 puff IH Q4H PRN #1 puff 03/17/17 Diazepam [Valium] 5 mg PO Q8H PRN #90 tablet 03/17/17 Omeprazole [Prilosec] 40 mg PO QDAC #30 capsule. 03/17/17 Disposition Discussed With: Patient, Family
[2017-03-28] MEDS ORDERED: LIDOCAINE 1 % AMP 5 ML (SUTURES) IM STA (12:19)
[2017-03-28] MEDS ORDERED: ROCEPHIN IM STA (12:19)
== END 2017-03-28 12:52 | disposition home or self-care (01) ==
LOC: ED 10:02
DX: J20.9 Acute bronchitis, unspecified (principal); R04.2 Hemoptysis; J44.9 Chronic obstructive pulmonary disease, unspecified; Z87.01 Personal history of pneumonia (recurrent); Z87.891 Personal history of nicotine dependence; Z79.899 Other long term (current) drug therapy
CPT/HCPCS: 36415; 80053; 82550; 82803; 83605; 84145; 84484; 85025; 85610; 85730; 87040; 93005; 93010; 96372; 99283

== ENCOUNTER 2017-07-10 08:17 | Outpatient (CLI) ==
--- NOTE | 2017-07-10 09:23 | DI ---
EXAM: Double contrast esophagram. History: Difficulty swallowing. Technique: Patient was given gas crystals. Patient was then given oral barium multiple spot films o f the esophagus and gastroesophageal junction were obtained. There is projections. Findings: The course and caliber of the esophagus are within normal limits. No mucosal lesions or f illing defects identified. Moderate sized hiatal hernia. Gastroesophageal reflux was present. No g astric outlet obstruction. Atherosclerotic vascular calcifications of the aortic knob. Impression: Moderate sized hiatal hernia. Gastroesophageal reflux was present.
== END 2017-07-10 08:18 | disposition home or self-care (01) ==
LOC: RAD 08:17
PROVIDERS: ATTEND Internal Medicine Gastroenterology
DX: R13.10 Dysphagia, unspecified (principal)

== ENCOUNTER 2017-07-17 10:45 | Day surgery (SDC) ==
[2017-07-17 13:17] VITALS: TEMP 97.8
[2017-07-17] MEDS ORDERED: VERSED ONE (13:35)
[2017-07-17] MEDS ORDERED: DIPRIVAN 20 ML VIAL IVP ONE (13:35)
[2017-07-17] MEDS ORDERED: LIDOCAINE HCL 2% LUER-JET ONE (13:35)
[2017-07-17 15:00] VITALS: BP 144/76
--- NOTE | 2017-07-18 09:40 | OP ---
PROCEDURE: EGD (ESOPHAGOGASTRODUODENOSCOPY) WITH PINTO DILATION. ENDOSCOPIST: Kelsey BURROWS M.D. INDICATION: DYSPHAGIA INSTRUMENT: [id number]. MEDICATION: PER ANESTHESIA. PROCEDURE: The patient was positioned for endoscopy. The oropharynx was sprayed with Cetacaine spray and the endoscope was advanced through the bite block into the esophagus and from there advanced to the duodenum. The duodenum was normal. The pylorus was patent. The antrum is normal. Hiatus hernia noted on retroflex exam. The distal esophagus was notable for the GE junction approximately 35cm. The scope was withdrawn and 50 [place] is passed without difficulty. She tolerated the procedure without immediate complication. PLAN: 1. Repeat at needed 2. Reviewing her Barium Esophagram from 07/10 it would appear that most of her symptoms are related to the hiatal hernia and most likely related motility issues. MTDD
== END 2017-07-17 15:05 | disposition home or self-care (01) ==
LOC: SURG 10:45
PROVIDERS: ATTEND Internal Medicine Gastroenterology
DX: R13.10 Dysphagia, unspecified (principal); K44.9 Diaphragmatic hernia without obstruction or gangrene

== ENCOUNTER 2017-07-27 09:40 | Outpatient (CLI) ==
--- NOTE | 2017-07-27 10:50 | CT ---
Exam: CT of the neck soft tissues without intravenous contrast. Comparison: 09/14/2015. Reason for exam: Dysphagia unspecified. FINDINGS: Image interpretation is limited by the lack of intravenous contrast administration. No displaced facial fractures are seen. Mucosal thickening is seen in the right sphenoid sinus. The partially imaged frontal, ethmoid, and maxillary sinuses are unopacified. No displaced facial fractures are seen. Degenerative disease is seen in the cervical spine. Emphysematous disease is seen in the partially i eric lung apices. The aerodigestive tract appears grossly unremarkable. The parotid, submandibular, and thyroid glands appear grossly unremarkable within limitations of a no ncontrasted evaluation. Impression: 1. No acute imaging findings are seen within the head and neck soft tissues although evaluation is l imited by the lack of intravenous contrast administration. 2. Degenerative disease in the cervical spine. 3. Apical emphysematous disease
== END 2017-07-27 09:41 | disposition home or self-care (01) ==
LOC: RAD 09:40
PROVIDERS: ATTEND Emergency Medicine
DX: R13.10 Dysphagia, unspecified (principal)

== ENCOUNTER 2017-11-24 14:54 | Outpatient (CLI) ==
--- NOTE | 2017-11-24 15:20 | DI ---
EXAM: CHEST FRONTAL AND LATERAL VIEWS HISTORY: Thorax wall contusion. COMPARISON: 03/15/2017 FINDINGS: Heart size and mediastinal contour remain within normal limits. Moderate atherosclerosis . No acute infiltrates. Normal vascularity with no pleural fluid or pneumothorax. The bony thorax fuller s no acute finding. IMPRESSION: No acute process.
== END 2017-11-24 14:55 | disposition home or self-care (01) ==
LOC: RAD 14:54
PROVIDERS: ATTEND Emergency Medicine
DX: S20.219D Contusion of unspecified front wall of thorax, subsequent encounter (principal)

== ENCOUNTER 2018-01-15 12:17 | Outpatient (CLI) ==
--- NOTE | 2018-01-15 13:12 | DI ---
EXAM: Radiographs, left knee HISTORY: Left knee pain. COMPARISON: 07/17/2015. TECHNIQUE: Four views. FINDINGS: Bone mineralization is decreased. There is no fracture or dislocation. The joint spaces are maintained although mild marginal osteophyte formation is present, similar to the prior study. N o focal soft tissue abnormality is seen. Atherosclerotic calcifications noted. IMPRESSION: Mild osteoarthritis.
== END 2018-01-15 12:18 | disposition home or self-care (01) ==
LOC: RAD 12:17
PROVIDERS: ATTEND Emergency Medicine
DX: M25.562 Pain in left knee (principal); G89.29 Other chronic pain

== ENCOUNTER 2018-01-24 10:40 | Inpatient (IN) | payer OTHER ==
[2018-01-24 10:47] VITALS: BMI 31.6
--- NOTE | 2018-01-24 11:45 | DI ---
EXAM: Two views of the chest. History: Cough. Comparison: Chest radiograph 11/24/2017 Findings: Heart size is normal. Atherosclerotic vascular calcifications. Multifocal left lung infi ltrates. No appreciable pleural fluid and no pneumothorax. No acute osseous abnormalities. Impression: Multifocal left lung pneumonia.
[2018-01-24] MEDS ORDERED: ROCEPHIN 1 GM in SODIUM CHLORIDE 50 ML IV STA (11:58)
--- NOTE | 2018-01-24 12:09 | ED.PDOC ---
General ED Provider: Dr. VIC HANSEN Chief Complaint: Non-specific Complaint Stated Complaint: flu like symptoms Time Seen by Physician: 10:50 (no shortness of breath flu like symptoms) Mode of Arrival: Walk-In Information Source: Patient Exam Limitations: No limitations Primary Care Provider: [facility] Nursing and Triage Documentation Reviewed and Agree: Yes Reviewed sepsis parameters & appropriate labs ordered?: Yes System Inflammatory Response Syndrome: Not Applicable Sepsis Protocol: For patient's 13 years and over: Temp is 96.8 and below OR 101 and greater Pulse >90 BPM Resp >20/minute Acutely Altered Mental Status Are patient's symptoms suggestive of a new infection, such as: -Pneumonia -Skin, Soft Tissue -Endocarditis -UTI -Bone, Joint Infection -Implantable Device -Acute Abdominal Infection -Wound Infection -Meningitis -Blood Stream Catheter Infection -Unknown System Inflammatory Response Syndrome: Not Applicable Respiratory Complaint Exam - Respiratory Complaint/Exam Onset/Duration: 2 days Symptoms Are: Still present Timing: Intermittent Initial Severity: Mild Current Severity: Mild Location: Nose, Throat, Chest Character: Reports: Non-productive cough Aggravating: Reports: None Alleviating: Reports: None Associated Signs and Symptoms: Reports: Chills, URI, Nasal congestion. Denies: Rapid breathing, Dyspnea, Fever, Chest pain, Pleuritic chest pain, Wheezing, Hemoptysis, Dizziness, Calf pain, Calf swelling, Edema, Hoarseness, Sinus discomfort, Vomiting, Sore throat, Weight loss, Decreased oral intake, Increased thirst, Increased appetite, Increased urination Related History: Reports: Similar episode History of Healthcare-Acquired Pneumonia: No Related Surgical History: Reports: None Pulmonary Embolism Risk Factors: None Cardiac Risk Factors: Reports: Diabetes Pseudomonas Risk Factors: Reports: Chronic Lung Disease Tuberculosis Risk Factors: Reports: None Status Asthmaticus Risk Factors: Reports: None Home Oxygen Use: No Recent Stress Test: No Recent Echo/LV Function: No Current Antibiotic Use: No Current Asthma Medication Use: No Respiratory Distress: None Inadequate Respiratory Effort: No Dysphagia Present: No Stridor Present: No JVD Present: No Accessory Muscle Use: No Retractions: Not Present Diminished Breath Sounds: No Sinus Tenderness: None Grunting Respirations: No Kussmaul Respirations: No Differential Diagnoses: Pneumonia, Bronchitis Review of Systems - Review Of Systems Constitutional: Reports: Chills, Diaphoresis, Malaise Eyes: Reports: No symptoms Ears, Nose, Mouth, Throat: Reports: No symptoms Respiratory: Reports: Cough Cardiac: Reports: No symptoms GI: Reports: No symptoms : Reports: No symptoms Musculoskeletal: Reports: No symptoms Skin: Reports: No symptoms Neurological: Reports: No symptoms Endocrine: Reports: No symptoms Hematologic/Lymphatic: Reports: No symptoms All Other Systems: Reviewed and Negative Past Medical History - Past Medical History Previously Healthy: No Endocrine: Reports: DM 2, Hypothyroid, Other (GOUT ) Cardiovascular: Reports: None Respiratory: Reports: COPD, Bronchitis (bronchitis several times), Pneumonia Hematological: Reports: None Gastrointestinal: Reports: GERD Genitourinary: Reports: None Neuro/Psych: Reports: Depression, Other ( HEAD INJURY 2-3 MONTHS AGO FROM FALL) Musculoskeletal: Reports: Arthritis, Other Cancer: Reports: None Last Menstrual Period: hysterectomy Other Pertinent Past Medical History: HYPOTENSION (PAST HISTORY OF HYPERTENSION ) - Surgical History General Surgical History: Reports: Hysterectomy ( hyst 38 years old), Orthopedic ( right foot surgery at 50 years old), Other (BILATERAL CATARACT EXTRACTIONS), Unknown - Family History Family History: Reports: Unknown - Social History Smoking Status: Former smoker Hx Substance Use: No Alcohol Screening: None Physical Exam - Physical Exam Appearance: Ill-appearing Ill-appearing: Mild Pain Distress: Moderate Eyes: WIL, EOMI, Conjunctiva clear ENT: Ears normal, Nose normal, Oropharynx normal Respiratory: Rhonchi Cardiovascular: RRR, Pulses normal, No rub, No murmur GI/: Soft, Nontender, No masses, Bowel sounds normal, No Organomegaly Musculoskeletal: Normal strength, ROM intact, No edema, No calf tenderness Skin: Warm, Dry, Normal color Neurological: Sensation intact, Motor intact, Reflexes intact, Cranial nerves intact, Alert, Oriented Psychiatric: Affect appropriate, Mood appropriate Interpretation - Radiology Interpretation Radiology Interpretation By: Radiologist Radiology Results: Positive (left lung pneumonia) Re-Evaluation - Re-Evaluation Time of Re-Evaluation: 12:00 Status: Unchanged Vital Signs Stable: Yes Pain Level: 0 Appearance: NAD Lungs: Clear Skin: Warm and Dry Neuro: Alert and Oriented X3 CV: RRR Additional Comments: no resp distress in ED Physician Notification - Case Discussed Physician Notified: pmd Time of Notification: 12:11 Admit To: Inpatient Critical Care Note - Critical Care Note Total Time (mins): 0 Course - Course Hematology/Chemistry: 01/24/18 11:20 03/28/18 11:20 Orders, Labs, Meds: Lab Review 01/24/18 01/24/18 01/24/18 11:00 11:00 11:20 WBC 21.79 H RBC 4.00 L Hgb 12.7 Hct 37.9 MCV 94.8 MCH 31.8 H MCHC 33.5 RDW Coeff of Fawad 12.7 Plt Count 226 Immature Gran % (Auto) 0.5 Neut % (Auto) 86.3 Lymph % (Auto) 5.7 L [place] % (Auto) 7.3 Eos % (Auto) 0.0 Baso % (Auto) 0.2 Immature Gran # (Auto) 0.1 Neut # (Auto) 18.8 H Lymph # (Auto) 1.3 [place] # (Auto) 1.6 Eos # (Auto) 0.0 Baso # (Auto) 0.0 Sodium Potassium Chloride Carbon Dioxide Anion Gap BUN Creatinine Estimated GFR (MDRD) BUN/Creatinine Ratio Glucose Calcium Total Bilirubin AST ALT Alkaline Phosphatase Total Protein Albumin Globulin Albumin/Globulin Ratio Procalcitonin Urine Color Yellow Urine Clarity Clear Urine pH 5.5 Ur Specific [place] 1.015 Urine Protein Negative Urine Glucose (UA) Negative Urine Ketones Trace Urine Blood Negative Urine Nitrite Negative Urine Bilirubin Negative Urine Urobilinogen 0.2 Ur Leukocyte Esterase Negative Influ A Molecular Assay Negative by naat Influ B Molecular Assay Negative by naat 01/24/18 01/24/18 11:20 11:20 WBC RBC Hgb Hct MCV MCH MCHC RDW Coeff of Fawad Plt Count Immature Gran % (Auto) Neut % (Auto) Lymph % (Auto) [place] % (Auto) Eos % (Auto) Baso % (Auto) Immature Gran # (Auto) Neut # (Auto) Lymph # (Auto) [place] # (Auto) Eos # (Auto) Baso # (Auto) Sodium 138 Potassium 3.5 Chloride 103 Carbon Dioxide 23 Anion Gap 15.5 BUN 22 H Creatinine 1.09 Estimated GFR (MDRD) 49.00 BUN/Creatinine Ratio 20.18 Glucose 91 Calcium 10.0 Total Bilirubin 0.5 AST 13 L ALT 11 L Alkaline Phosphatase 69 Total Protein 6.0 Albumin 3.3 L Globulin 2.7 Albumin/Globulin Ratio 1.22 Procalcitonin 2.09 Urine Color Urine Clarity Urine pH Ur Specific [place] Urine Protein Urine Glucose (UA) Urine Ketones Urine Blood Urine Nitrite Urine Bilirubin Urine Urobilinogen Ur Leukocyte Esterase Influ A Molecular Assay Influ B Molecular Assay Orders Category Date Time Status NEBULIZER TREATMENT Routine CARDIO 01/24/18 12:00 Ordered CBC W/ AUTO DIFF Stat LAB 01/24/18 11:20 Completed COMPREHENSIVE METABOLIC PANEL Stat LAB 01/24/18 11:20 Completed FLU A/B MOLECULAR Stat LAB 01/24/18 11:00 Completed MOLECULAR GROUP A STREP Stat LAB 01/24/18 11:00 Completed PROCALCITONIN Stat LAB 01/24/18 11:20 Received URINALYSIS C & S IF INDICATED Stat LAB 01/24/18 11:00 Completed Ceftriaxone Sodium [Rocephin] 1 gm MEDS 01/24/18 11:58 Ordered 0.9 % Sodium Chloride [Sodium Chloride] 50 ml IV ONCE Ipratropium/Albuterol Neb [Duoneb] MEDS 01/24/18 12:00 Ordered 1 vial NEB RTQ6H Losartan Potassium [Losartan Potassium] MEDS 01/25/18 09:00 Ordered 50 mg PO DAILY Simvastatin [Simvastatin] MEDS 01/25/18 09:00 Ordered 20 mg PO DAILY CHEST, 2 VIEWS PA & LAT Stat RADS 01/24/18 11:09 Completed Medications Generic Name Dose Route Start Last Admin Trade Name Freq PRN Reason Stop Dose Admin Albuterol/Ipratropium 1 vial 01/24/18 12:00 Duoneb NEB RTQ6H EMMY Ceftriaxone Sodium 1 gm/ 50 mls @ 75 mls/hr 01/24/18 11:58 Sodium Chloride IV 01/24/18 12:37 ONCE STA Non-Formulary Medication 50 mg 01/25/18 09:00 Losartan Potassium [Losartan Potassium] PO DAILY EMMY Non-Formulary Medication 20 mg 01/25/18 09:00 Simvastatin [Simvastatin] PO DAILY EMMY Vital Signs: Temp Pulse Resp BP Pulse Ox 01/24/18 10:40 100.2 F H 112 H 20 96/59 L 92 L Departure - Departure Time of Disposition: 12:12 Disposition: ADMITTED INPATIENT Discharge Problem: Pneumonia Qualifiers: Pneumonia type: due to unspecified organism Laterality: left Lung location: unspecified part of lung Qualified Code(s): J18.9 - Pneumonia, unspecified organism Condition: Good Pt referred to PMD for follow-up: Yes IPMP verified?: No Allergies/Adverse Reactions: Allergies albuterol Allergy (Intermediate, Verified 01/24/18 10:50) Rash nebs tx causes rash Home Medications: Ambulatory Orders Metformin HCl [Glucophage] 500 mg PO DAILYWM #30 tablet 08/05/15 Fluticasone/Salmeterol 100/50 [Advair 100-50 Diskus] 1 puff IH BID 03/04/16 Gabapentin [Neurontin] 100 mg PO TID 03/04/16 [place]-3 Fatty Acids/Fish Oil [Fish Oil 1,000 mg Capsule] 1,000 mcg PO DAILY 04/14 Simvastatin 20 mg PO DAILY 03/04/16 Tiotropium [place] [Spiriva] 18 mcg IH DAILY 03/04/16 Oxycodone-Acetaminophen 10-325 [Percocet 10-325] 1 tab PO Q6H 05/29/16 Trazodone HCl 150 mg PO BEDTIME 05/29/16 Arformoterol Tartrate [Brovana] 1 vial IH DAILY #30 vial.neb 06/02/16 Albuterol Sulfate [Proair Hfa] 1 puff IH Q4H PRN #1 puff 03/17/17 Diazepam [Valium] 5 mg PO Q8H PRN #90 tablet 03/17/17 Omeprazole [Prilosec] 40 mg PO QDAC #30 capsule. 03/17/17 Disposition Discussed With: Patient, Family
[2018-01-24] MEDS ORDERED: ROCEPHIN ONE (12:15)
[2018-01-24] MEDS: DUONEB NEB SCH ×3 (13:49→22:45)
[2018-01-24] MEDS: SODIUM CHLORIDE 1,000 ML IV SCH (14:05)
[2018-01-24] MEDS: NEURONTIN PO SCH ×2 (14:28→21:21)
[2018-01-24] MEDS: PERCOCET 10-325 PO SCH ×3 (14:28→23:58)
--- NOTE | 2018-01-24 15:48 | CT ---
EXAM: CT chest without contrast. HISTORY: Cough, pneumonia. COMPARISON: Radiograph earlier the same day. CT 10/15/2012, 05/29/2016, 03/28/2017. TECHNIQUE: Multiple axial images of the chest were obtained without intravenous contrast. Images we re reformatted in the sagittal and coronal planes. FINDINGS: Evaluation for lymphadenopathy is limited by lack of intravenous contrast. Precarinal ly mph node measures 1 cm short axis on axial image 19 which is stable from prior CT. Calcified mediast inal and hilar lymph nodes present. Heart size is normal. No pericardial effusion identified. Ather osclerotic calcifications are present in the aorta and coronary arteries. Moderate emphysematous changes present bilaterally. There is consolidation and ground-glass opacitie s throughout the left lung. Right lung is grossly clear. No pleural effusion or pneumothorax identi fied. Moderate sized hiatal hernia is present. Large descending duodenal diverticulum is present. Old alison rnal body and manubrial fractures suggested. IMPRESSION: 1. Multifocal left lung pneumonia. Follow up in 3 months recommended for reassessment. 2. Moderate emphysema.
[2018-01-24] MEDS: SOLU-MEDROL 125 MG IVP SCH ×2 (17:45→21:34)
[2018-01-24] MEDS ORDERED: NON-FORMULARY MEDICATION (Trazodone Hcl [Trazodone Hcl] 150 MG) PO SCH (21:00)
[2018-01-24] MEDS: DESYREL PO SCH (21:21)
[2018-01-24] MEDS: ADVAIR 100-50 DISKUS IH SCH (21:21)
[2018-01-24] MEDS: LEXAPRO PO SCH (21:21)
[2018-01-25] MEDS: SODIUM CHLORIDE 1,000 ML IV SCH ×2 (03:49→10:11)
[2018-01-25] MEDS: DUONEB NEB SCH ×4 (05:03→22:40)
[2018-01-25] MEDS: PERCOCET 10-325 PO SCH ×3 (05:29→17:31)
[2018-01-25] MEDS: PRILOSEC PO SCH (05:29)
[2018-01-25] MEDS: PERFOROMIST NEB SCH (06:57)
[2018-01-25] MEDS: SPIRIVA IH SCH (08:34)
[2018-01-25] MEDS: ADVAIR 100-50 DISKUS IH SCH ×2 (08:34→20:45)
[2018-01-25] MEDS: LOVENOX SUBCUT SCH (08:35)
[2018-01-25] MEDS: SOLU-MEDROL 125 MG IVP SCH ×2 (08:36→20:31)
[2018-01-25] MEDS: ZOCOR PO SCH (08:37)
[2018-01-25] MEDS: GLUCOPHAGE PO SCH (08:37)
[2018-01-25] MEDS: COZAAR PO SCH (08:37)
[2018-01-25] MEDS: OMEGA-3 FISH OIL PO SCH (08:37)
[2018-01-25] MEDS: NEURONTIN PO SCH ×3 (08:38→20:45)
[2018-01-25] MEDS ORDERED: NON-FORMULARY MEDICATION (Omega-3 Fatty Acids/Fish Oil [Fish Oil 1,000 Mg Capsule] 1,000 M PO SCH (09:00)
[2018-01-25] MEDS ORDERED: NON-FORMULARY MEDICATION (Losartan Potassium [Losartan Potassium] 50 MG) PO SCH (09:00)
[2018-01-25] MEDS ORDERED: NON-FORMULARY MEDICATION (Simvastatin [Simvastatin] 20 MG) PO SCH (09:00)
[2018-01-25] MEDS ORDERED: NON-FORMULARY MEDICATION (Arformoterol Tartrate [Brovana] 1 VIAL) IH SCH (09:00)
[2018-01-25] MEDS: ZOSYN 3.375 GM 3.375 GM in SODIUM CHLORIDE 50 ML IV SCH ×2 (12:30→17:31)
[2018-01-25] MEDS: VALIUM PO PRN (14:10)
--- NOTE | 2018-01-25 14:21 | HP ---
DATE OF SERVICE: 01/24/18 CHIEF COMPLAINT: Fever, chills and shortness of breath HISTORY OF PRESENT ILLNESS: This is a 72 year old female came to the emergency room. Woke today morning with fever and chills, coughing and congestion been seen in our office 2-3 days ago for the sinus infection and was started on the antibiotics. She was taking the medication and was not getting better, getting yellow/green phlegm and today morning woke up with the fever and chills and dizziness. Walking into the aviles and did not know what was going on. Temperature was 103 came to the emergency room and was seen by Dr. Pagan. Temperature was 100 in the emergency room. The patient has history of diabetes and COPD. Chest x-ray showed the left sided multilobular pneumonia and WBC was with the 21,000 left shift. At that time the patient is admitted to the hospital for IV antibiotics, breathing treatments and IV fluids. REVIEW OF SYSTEMS: CONSTITUTIONAL: Fever, Chills. Weakness and tiredness. HEENT: Normal. ENDOCRINE: No weight gain; no weight loss. CVS: No chest pain. No PND, no orthopnea. Shortness of breath. No PND, no orthopnea. RESPIRATORY: Cough, Congestion. No hemoptysis. GI: No nausea, no vomiting. No abdominal pain. No melena. : No hematuria. No polyuria. MUSCULOSKELETAL: No joint swelling. PSYCHIATRIC: Not anxious. No depression. No suicidal thoughts. No homicidal thoughts. SKIN: Intact, no open lesions. PAST MEDICAL HISTORY: Hypertension COPD Recurrent pneumonia Sleep apnea on CPAP Peptic ulcer disease Osteoarthritis Rheumatoid arthritis Chronic pain syndrome Hypothyroidism Bipolar Depression Schizophrenia PAST SURGICAL HISTORY: Bilateral cataract surgery Hysterectomy PERSONAL HISTORY: History of smoking, no alcohol and no drugs. Family history is significant for the coronary artery disease. MEDICATIONS: Glucophage Advair [place] 3 Tiotropium Neurontin Simvastatin Oxycodone Trazodone Brovana Prilosec Diazepam Albuterol Escitalopram Losartan ALLERGIES: Albuterol PHYSICAL EXAMINATION: V/S: Temperature 100.2, heart rate 112, blood pressure 96/59, respiratory rate 20 and saturation 92 on room air. GENERAL: Sick looking lady lying in the bed. HEENT: Atraumatic, normocephalic. No scleral icterus. Pallor positive. Mucosa dry. NECK: Supple. No JVD, no bruit. No lymphadenopathy. No thyromegaly. HEART: S1, S2 normal. No murmur. No cyanosis or clubbing. No ascites. LUNGS: Decreased and basilar crackles left more than the right with mild expiratory wheeze. Clear to auscultation. No rales or rhonchi. ABDOMEN: Soft, nontender. Bowel sounds are active. No CVA tenderness. No rigidity or guarding. EXTREMITIES: No pedal edema. No cyanosis or clubbing MUSCULOSKELETAL: Normal joints, no swelling. NEUROLOGIC: The patient is awake and alert. SKIN: Intact; no open lesions. LYMPHATIC: No lymph nodes palpable. LABS: Sodium 138, potassium 3.5, chloride 103,bicarb 23, BUN 22, creatinine 109, bicarb 109, glucose 191, WBC 21.79, hgb 12.7, hct 37.9, plt count 226. ASSESSMENT: 1. COPD exacerbation secondary to multilobular pneumonia left lower lobe 2. Leukocytosis from pneumonia 3. Diabetes 4. Hypertension 5. Dyslipidemia 6. Osteoarthritis 7. DJD spine 8. Rheumatoid arthritis PLAN: 1. Admit patient to the regular floor 2. CBC and CMP today and daily 3. Cardiac enzymes and Troponin 4. Solu-Medrol 5. Rocephin 1 gram daily 6. DUO NEBS 7. Lovenox for the DVT prophylaxis 8. Continue home medication 9. Accu-checks with coverage TIME SPENT: MORE THAN 65 minutes MTDD
[2018-01-25] MEDS: LEXAPRO PO SCH (20:45)
[2018-01-25] MEDS: DESYREL PO SCH (20:45)
[2018-01-25] MEDS: ATIVAN PO SCH (20:59)
[2018-01-26] MEDS: ZOSYN 3.375 GM 3.375 GM in SODIUM CHLORIDE 50 ML IV SCH ×4 (00:07→17:44)
[2018-01-26] MEDS: PERCOCET 10-325 PO SCH ×4 (00:07→17:44)
[2018-01-26] MEDS: SODIUM CHLORIDE 1,000 ML IV SCH (00:59)
[2018-01-26] MEDS: DUONEB NEB SCH ×4 (05:08→23:50)
[2018-01-26] MEDS: PERFOROMIST NEB SCH (05:18)
[2018-01-26] MEDS: VALIUM PO PRN ×2 (05:34→13:52)
[2018-01-26] MEDS: PRILOSEC PO SCH (05:35)
[2018-01-26] MEDS: GLUCOPHAGE PO SCH (09:15)
[2018-01-26] MEDS: NEURONTIN PO SCH ×3 (09:15→21:42)
[2018-01-26] MEDS: COZAAR PO SCH (09:15)
[2018-01-26] MEDS: ZOCOR PO SCH (09:16)
[2018-01-26] MEDS: OMEGA-3 FISH OIL PO SCH (09:16)
[2018-01-26] MEDS: LOVENOX SUBCUT SCH (09:17)
[2018-01-26] MEDS: ADVAIR 100-50 DISKUS IH SCH ×2 (09:23→21:42)
[2018-01-26] MEDS: SPIRIVA IH SCH (09:24)
[2018-01-26] MEDS: SOLU-MEDROL 125 MG IVP SCH ×2 (09:25→21:42)
[2018-01-26] MEDS: ATIVAN PO SCH (21:41)
[2018-01-26] MEDS: LEXAPRO PO SCH (21:42)
[2018-01-26] MEDS: DESYREL PO SCH (21:42)
[2018-01-27] MEDS: PERCOCET 10-325 PO SCH ×5 (00:28→23:39)
[2018-01-27] MEDS: ZOSYN 3.375 GM 3.375 GM in SODIUM CHLORIDE 50 ML IV SCH ×5 (00:28→23:39)
[2018-01-27] MEDS: DUONEB NEB SCH ×4 (04:55→23:55)
[2018-01-27] MEDS: PERFOROMIST NEB SCH (05:05)
[2018-01-27] MEDS: PRILOSEC PO SCH (05:44)
[2018-01-27] MEDS: NEURONTIN PO SCH ×3 (08:54→20:56)
[2018-01-27] MEDS: ZOCOR PO SCH (08:54)
[2018-01-27] MEDS: COZAAR PO SCH (08:54)
[2018-01-27] MEDS: OMEGA-3 FISH OIL PO SCH (08:54)
[2018-01-27] MEDS: GLUCOPHAGE PO SCH (08:54)
[2018-01-27] MEDS: SOLU-MEDROL 125 MG IVP SCH ×2 (08:55→20:56)
[2018-01-27] MEDS: ADVAIR 100-50 DISKUS IH SCH ×2 (08:59→20:56)
[2018-01-27] MEDS: SPIRIVA IH SCH (08:59)
[2018-01-27] MEDS: LOVENOX SUBCUT SCH (09:01)
[2018-01-27] MEDS: VALIUM PO PRN (09:01)
[2018-01-27] MEDS: SODIUM CHLORIDE 1,000 ML IV SCH (10:14)
[2018-01-27] MEDS: DESYREL PO SCH (20:55)
[2018-01-27] MEDS: ATIVAN PO SCH (20:56)
[2018-01-27] MEDS: LEXAPRO PO SCH (20:56)
[2018-01-28] MEDS: PERCOCET 10-325 PO SCH ×4 (05:35→23:33)
[2018-01-28] MEDS: PRILOSEC PO SCH (05:35)
[2018-01-28] MEDS: ZOSYN 3.375 GM 3.375 GM in SODIUM CHLORIDE 50 ML IV SCH ×4 (05:36→23:34)
[2018-01-28] MEDS: DUONEB NEB SCH ×4 (06:00→23:35)
[2018-01-28] MEDS: PERFOROMIST NEB SCH (06:00)
[2018-01-28] MEDS: ADVAIR 100-50 DISKUS IH SCH ×2 (08:10→20:48)
[2018-01-28] MEDS: SPIRIVA IH SCH (08:10)
[2018-01-28] MEDS: GLUCOPHAGE PO SCH (08:11)
[2018-01-28] MEDS: OMEGA-3 FISH OIL PO SCH (08:11)
[2018-01-28] MEDS: COZAAR PO SCH (08:11)
[2018-01-28] MEDS: ZOCOR PO SCH (08:11)
[2018-01-28] MEDS: LOVENOX SUBCUT SCH (08:12)
[2018-01-28] MEDS: NEURONTIN PO SCH ×3 (08:12→20:47)
[2018-01-28] MEDS: SOLU-MEDROL 125 MG IVP SCH ×2 (09:00→20:46)
[2018-01-28] MEDS: SODIUM CHLORIDE 1,000 ML IV SCH ×2 (12:25→16:56)
[2018-01-28] MEDS: VALIUM PO PRN (16:17)
[2018-01-28] MEDS: LEXAPRO PO SCH (20:47)
[2018-01-28] MEDS: ATIVAN PO SCH (20:47)
[2018-01-28] MEDS: DESYREL PO SCH (20:47)
[2018-01-29] MEDS: DUONEB NEB SCH ×3 (05:42→17:00)
[2018-01-29] MEDS: ZOSYN 3.375 GM 3.375 GM in SODIUM CHLORIDE 50 ML IV SCH ×3 (05:46→14:44)
[2018-01-29] MEDS: PRILOSEC PO SCH (05:46)
[2018-01-29] MEDS: PERCOCET 10-325 PO SCH ×4 (05:46→23:15)
[2018-01-29] MEDS: PERFOROMIST NEB SCH (05:52)
[2018-01-29] MEDS: ADVAIR 100-50 DISKUS IH SCH ×2 (08:50→21:18)
[2018-01-29] MEDS: SPIRIVA IH SCH (08:50)
[2018-01-29] MEDS: OMEGA-3 FISH OIL PO SCH (08:51)
[2018-01-29] MEDS: ZOCOR PO SCH (08:51)
[2018-01-29] MEDS: NEURONTIN PO SCH ×3 (08:52→21:18)
[2018-01-29] MEDS: GLUCOPHAGE PO SCH (08:52)
[2018-01-29] MEDS: COZAAR PO SCH (08:52)
[2018-01-29] MEDS: SOLU-MEDROL 125 MG IVP SCH (08:54)
[2018-01-29] MEDS: LOVENOX SUBCUT SCH (08:54)
[2018-01-29] MEDS: VALIUM PO PRN (11:28)
--- NOTE | 2018-01-29 15:03 | DI ---
EXAM: CHEST FRONTAL AND LATERAL VIEWS HISTORY: Shortness of breath. COMPARISON: 01/24/2018 FINDINGS: Heart size remains within normal limits. Moderate atherosclerotic disease. There is diffus e, chronic appearing interstitial accentuation. There are scattered calcifications suggesting old gr anulomatous disease. No acute infiltrates are seen. No vascular congestion. There is no consolidat ion, visible pleural fluid or pneumothorax. Bones reveal no acute fracture. IMPRESSION: No acute cardiopulmonary process.
[2018-01-29] MEDS: PREDNISONE PO SCH (16:50)
--- NOTE | 2018-01-29 17:55 | CT ---
EXAM: CT chest without intravenous contrast 01/29/2018. Sagittal and coronal reformatted images obt ained HISTORY: Follow-up multifocal pneumonia COMPARISON: 01/29/2018 FINDINGS: The heart size appears within normal limits. There is no pericardial effusion. Moderate sized hiatal hernia. Emphysematous changes within both lungs. Linear and ground-glass infiltrate is present throughout the left upper lobe. This may represent a c ombination of atelectasis and/or pneumonitis. No definitive pulmonary edema. No pleural effusion. No pneumothorax. No dominant pulmonary mass. Limited views of the upper abdomen show no acute process. No acute osseous abnormality. IMPRESSION: 1. Emphysematous changes throughout both lungs. 2. Moderate sized hiatal hernia 3. Linear and ground glass infiltrates of the the left upper lobe likely due to a combination of ate lectasis and/or pneumonitis.
[2018-01-29] MEDS: DESYREL PO SCH (21:18)
[2018-01-29] MEDS: KEFLEX PO SCH (21:18)
[2018-01-29] MEDS: ATIVAN PO SCH (21:18)
[2018-01-29] MEDS: LEXAPRO PO SCH (21:19)
[2018-01-30] MEDS: DUONEB NEB SCH ×2 (00:10→05:08)
[2018-01-30] MEDS: PERFOROMIST NEB SCH (05:18)
[2018-01-30] MEDS: PRILOSEC PO SCH (05:43)
[2018-01-30] MEDS: PERCOCET 10-325 PO SCH (05:43)
[2018-01-30] MEDS: ADVAIR 100-50 DISKUS IH SCH (10:11)
[2018-01-30] MEDS: ZOCOR PO SCH (10:11)
[2018-01-30] MEDS: COZAAR PO SCH (10:12)
[2018-01-30] MEDS: OMEGA-3 FISH OIL PO SCH (10:12)
[2018-01-30] MEDS: PREDNISONE PO SCH (10:12)
[2018-01-30] MEDS: GLUCOPHAGE PO SCH (10:12)
[2018-01-30] MEDS: NEURONTIN PO SCH (10:12)
[2018-01-30] MEDS: KEFLEX PO SCH (10:12)
[2018-01-30] MEDS: SPIRIVA IH SCH (10:14)
[2018-01-30] MEDS: LOVENOX SUBCUT SCH (10:14)
[2018-01-30 10:30] VITALS: BP 155/80; TEMP 97.9
--- NOTE | 2018-02-04 22:36 | PCM.HOSP ---
- Initial Hospital Care [id number] 70 Minutes Bedside ([id number]): 01/24 - Subsequent Care [id number] 25 Minutes per Day ([id number]): 01/28. 01/29 [id number] 35 Minutes per Day ([id number]): 01/25. 01/26. 01/27 - Hospital Discharge [id number] More than 30 Minutes ([id number]): 01/30
--- NOTE | 2018-02-06 15:09 | PN ---
DATE OF SERVICE: 01/25/18 SUBJECTIVE: The patient was admitted with the left sided anterior lobular pneumonia, shortness of breath. The patient is sitting in bed and not in any distress. REVIEW OF SYSTEMS: CONSTITUTIONAL: No fever, no chills. HEENT: Normal. ENDOCRINE: No weight gain, no weight loss. CVS: No angina symptoms. No CHF symptoms. No palpitations. No atypical chest pain for CAD. Shortness of breath. No PND, no orthopnea. RESPIRATORY: Cough and congestion with yellow/green phlegm, no hemoptysis. GI: No nausea, no vomiting. No abdominal pain. : No hematuria. No polyuria. MUSCULOSKELETAL: No joint swelling. PSYCHIATRIC: Not anxious. No depression. No suicidal thoughts. No homicidal thoughts. SKIN: Intact. No rash. PHYSICAL EXAMINATION: V/S: Blood pressure 114/63, respiratory 14, heart rate 88, temperature 98.5, saturation 95%. HEENT: Normocephalic, atraumatic. Mucosa dry. Pallor positive. No icterus. NECK: Supple. No JVD, no carotid bruit. No lymphadenopathy. LUNGS: Decreased and basilar crackles. Left sided crackles more than the right and expiratory wheezing. No rales or rhonchi. HEART: S1, S2 normal. No S3. No murmur, gallop or regurgitation. ABDOMEN: Soft, nontender. Bowel sounds active. No rigidity. No rebound or guarding. No CVA tenderness. EXTREMITIES: No pedal edema. No clubbing or cyanosis MUSCULOSKELETAL: No joint swelling. NEUROLOGIC: Awake, alert, oriented times three. No focal deficit. LYMPHATIC: No lymph nodes palpable. SKIN: Intact. LABS: WBC 27.05, hgb 12.6, hct 38.0, plt count 225, sodium 139, potassium 5.0, chloride 107, bicarb 25, BUN 20, creatinine 0.96 and glucose 188. ASSESSMENT: 1. Left lobar pneumonia, multi lofas pneumonia community acquired 2. Shortness of breath secondary to the pneumonia 3. COPD exacerbation secondary to the pneumonia 4. History of hypertension 5. COPD 6. Depression 7. Osteoarthritis 8. Rheumatoid arthritis 9. Depression 10.Bipolar PLAN: 1. Stop the Rocephin 2. Start the Zosyn 3. DUO NEBS 4. Solu-Medrol 5. Daily I&O's 6. IV fluids at 40ml per hour TIME SPENT: More than 35 minutes MTDD
--- NOTE | 2018-02-06 15:15 | PN ---
DATE OF SERVICE: 01/26/18 SUBJECTIVE: The patient was admitted with left lower lobe pneumonia. Still coughing and congested. REVIEW OF SYSTEMS: CONSTITUTIONAL: No fever, no chills. HEENT: Normal. ENDOCRINE: No weight gain, no weight loss. CVS: No angina symptoms. No CHF symptoms. No palpitations. No atypical chest pain for CAD. Shortness of breath with minimal exertion. No PND, no orthopnea. RESPIRATORY: Cough, no hemoptysis. GI: No nausea, no vomiting. No abdominal pain. : No hematuria. No polyuria. MUSCULOSKELETAL: No joint swelling. PSYCHIATRIC: Not anxious. No depression. No suicidal thoughts. No homicidal thoughts. SKIN: Intact. No rash. PHYSICAL EXAMINATION: V/S: Blood pressure 120/70, respiratory rate 18, heart rate 92, temperature 98.5 , saturation 96. HEENT: Normocephalic, atraumatic. Mucosa dry. Pallor positive. No icterus. NECK: Supple. No JVD, no carotid bruit. No lymphadenopathy. LUNGS: Decreased and basilar crackles left more than the right. No rales or rhonchi. HEART: S1, S2 normal. No S3. No murmur, gallop or regurgitation. ABDOMEN: Soft, nontender. Bowel sounds active. No rigidity. No rebound or guarding. No CVA tenderness. EXTREMITIES: No pedal edema. No clubbing or cyanosis MUSCULOSKELETAL: No joint swelling. NEUROLOGIC: Awake, alert, oriented times three. No focal deficit. LYMPHATIC: No lymph nodes palpable. SKIN: Intact. LABS: WBC 23.31, hgb 10.9, hct 33.0, plt count 206, sodium 139, potassium 5.0, chloride 108, bicarb 22, BUN 15, creatinine 0.84, glucose 181. ASSESSMENT: 1. Left sided multilobar pneumonia, community acquired 2. COPD exacerbation secondary to the pneumonia 3. Anemia 4. Hypertension 5. Dyslipidemia 6. Depression 7. Bipolar disorder PLAN: 1. Continue the DUO NEBS 2. Accu-checks with coverage 3. Zosyn 4. Lovenox for the DVT prophylaxis 5. IV fluids TIME SPENT: More than 35 minutes MTDD
--- NOTE | 2018-02-06 15:21 | PN ---
DATE OF SERVICE: 01/27/18 SUBJECTIVE: The patient was admitted with the left sided community acquired pneumonia multilobar. Still coughing and congested. Stated that her sputum was bloody tinge today. REVIEW OF SYSTEMS: CONSTITUTIONAL: No fever, no chills. HEENT: Normal. ENDOCRINE: No weight gain, no weight loss. CVS: No angina symptoms. No CHF symptoms. No palpitations. No atypical chest pain for CAD. No shortness of breath. No PND, no orthopnea. RESPIRATORY: Cough and congestion, no hemoptysis. GI: No nausea, no vomiting. No abdominal pain. : No hematuria. No polyuria. MUSCULOSKELETAL: No joint swelling. PSYCHIATRIC: Not anxious. No depression. No suicidal thoughts. No homicidal thoughts. SKIN: Intact. No rash. PHYSICAL EXAMINATION: V/S: Blood pressure 142/76, respiratory ate 19, heart rate 93, temperature 98.5. HEENT: Normocephalic, atraumatic. Mucosa dry. Pallor positive. No icterus. NECK: Supple. No JVD, no carotid bruit. No lymphadenopathy. LUNGS: Left basilar decreased and defused crackles are present left side and the right side. No rales or rhonchi. HEART: S1, S2 normal. No S3. No murmur, gallop or regurgitation. ABDOMEN: Soft, nontender. Bowel sounds active. No rigidity. No rebound or guarding. No CVA tenderness. EXTREMITIES: No pedal edema. No clubbing or cyanosis MUSCULOSKELETAL: No joint swelling. NEUROLOGIC: Awake, alert, oriented times three. No focal deficit. LYMPHATIC: No lymph nodes palpable. SKIN: Intact. LABS: WBC 19.56, hgb 11.2, hct 34.5, plt count 222, sodium 140, potassium 5.1, chloride 107, bicarb 24, BUN 20, creatinine 0.99, glucose 154. ASSESSMENT: 1. Left sided multilobar pneumonia, community acquired 2. Hypoxemia 3. COPD 4. Depression 5. Anxiety 6. Dyslipidemia 7. Osteoarthritis 8. DJD spine PLAN: 1. Continue the Zosyn 2. IV fluids 3. Solu-Medrol Q 12 hours 4. DUO NEBS 5. Lovenox for the DVT prophylaxis TIME SPENT: More than 35 minutes MTDD
--- NOTE | 2018-02-06 15:26 | PN ---
DATE OF SERVICE: 01/29/18 SUBJECTIVE: The patient was admitted with pneumonia. Cough and congestion is improved. The patient is up and about walking. Some shortness of breath with minimal exertion. REVIEW OF SYSTEMS: CONSTITUTIONAL: No fever, no chills. HEENT: Normal. ENDOCRINE: No weight gain, no weight loss. CVS: No angina symptoms. No CHF symptoms. No palpitations. No atypical chest pain for CAD. Some shortness of breath. No PND, no orthopnea. RESPIRATORY: Cough, no hemoptysis. GI: No nausea, no vomiting. No abdominal pain. : No hematuria. No polyuria. MUSCULOSKELETAL: No joint swelling. PSYCHIATRIC: Not anxious. No depression. No suicidal thoughts. No homicidal thoughts. SKIN: Intact. No rash. PHYSICAL EXAMINATION: HEENT: Normocephalic, atraumatic. Mucosa . NECK: Supple. No JVD, no carotid bruit. No lymphadenopathy. LUNGS: Decreased and basilar crackles left more than the right. No rales or rhonchi. HEART: S1, S2 normal. No S3. No murmur, gallop or regurgitation. ABDOMEN: Soft, nontender. Bowel sounds active. No rigidity. No rebound or guarding. No CVA tenderness. EXTREMITIES: No pedal edema. No clubbing or cyanosis MUSCULOSKELETAL: No joint swelling. Up and about walking some. NEUROLOGIC: Awake, alert, oriented times three. No focal deficit. LYMPHATIC: No lymph nodes palpable. SKIN: Intact. LABS: Sodium 139, potassium 4.7, chloride 104, bicarb 26, BUN 23, creatinine 1.04, WBC 9.30, hgb 11.5, hct 36.2, plt count 254. ASSESSMENT: 1. Left sided multifocal pneumonia, community acquired 2. Anemia 3. Hypertension 4. Dyslipidemia 5. Recurrent pneumonia 6. COPD 7. Sleep apnea on BIPAP 8. Osteoarthritis 9. DJD spine 10.Bipolar disorder PLAN: 1. Will get chest x-ray 2. Discontinue IV antibiotics 3. Steroid the patient on PO Keflex 4. Lovenox for the DVT prophylaxis 5. DUO NEBS 6. Daily I&O's TIME SPENT: More than 35 minutes MTDD
--- NOTE | 2018-02-06 15:31 | PN ---
DATE OF SERVICE: 01/28/18 SUBJECTIVE: The patient was admitted with the left sided multilobar pneumonia. Cough and congestion is improved but still having some cough with blood tinge or red color. REVIEW OF SYSTEMS: CONSTITUTIONAL: No fever, no chills. HEENT: Normal. ENDOCRINE: No weight gain, no weight loss. CVS: No angina symptoms. No CHF symptoms. No palpitations. No atypical chest pain for CAD. No shortness of breath. No PND, no orthopnea. RESPIRATORY: Cough, no hemoptysis. GI: No nausea, no vomiting. No abdominal pain. : No hematuria. No polyuria. MUSCULOSKELETAL: No joint swelling. PSYCHIATRIC: Not anxious. No depression. No suicidal thoughts. No homicidal thoughts. SKIN: Intact. No rash. PHYSICAL EXAMINATION: V/S: Blood pressure 139/73, respiratory rate 16, heart rate 72, temperature 98.5 , saturation is 97% on 2 liters. HEENT: Normocephalic, atraumatic. Mucosa dry. Pallor positive. No icterus. NECK: Supple. No JVD, no carotid bruit. No lymphadenopathy. LUNGS: Decreased and basilar crackles left more than the right. No rales or rhonchi. HEART: S1, S2 normal. No S3. No murmur, gallop or regurgitation. ABDOMEN: Soft, nontender. Bowel sounds active. No rigidity. No rebound or guarding. No CVA tenderness. EXTREMITIES: No pedal edema. No clubbing or cyanosis MUSCULOSKELETAL: No joint swelling. NEUROLOGIC: Awake, alert, oriented times three. No focal deficit. LYMPHATIC: No lymph nodes palpable. SKIN: Intact. LABS: WBC 13.84, hgb 10.9, hct 39.2, plt count 233, sodium 140, potassium 4.8, chloride 106, bicarb 24, BUN 21, creatinine 1.09. ASSESSMENT: 1. Left sided multifocal pneumonia, community acquired 2. Anemia 3. Hypertension 4. Dyslipidemia 5. Osteoarthritis 6. DJD spine 7. Depression 8. Anxiety PLAN: 1. Continue the Rocephin 2. DUO NEBS 3. Solu-Medrol TIME SPENT: More than 35 minutes MTDD
--- NOTE | 2018-02-07 08:27 | DS ---
DATE OF SERVICE: 01/30/18 FINAL DIAGNOSIS: 1. COPD exacerbation secondary to the left sided multifocal pneumonia, community acquired 2. Hypoxemic respiratory failure 3. COPD 4. Diabetes 5. Arthritis 6. Sleep apnea on BIPAP 7. Hiatal hernia 8. Hypertension 9. Dysthymic disorder 10.Anemia 11.Hysterectomy 12.Right foot surgery 13.Former smoker 14.EG with dilation for the stricture DISCHARGE INSTRUCTIONS: Discharge the patient home. Continue rest of the home medications. MEDICATIONS AT DISCHARGE: ProAir Brovana Valium Lexapro Solu-Medrol Neurontin Losartan Glucophage Prilosec Oxycodone Trazodone NEW PRESCRIPTIONS: Keflex 500mg twice a day Prednisone twice a day DIET INSTRUCTIONS: Cardiac diet and healthy diet ACTIVITY: As tolerated SMOKING: N/A DISEASE SPECIFIC EDUCATION: COPD and needing for the pneumonia vaccination Antibiotic use and diarrhea been discussed. HOSPITAL COURSE: Cynthia Frausto 72 year old female was initially seen at the office for the cough and congestion, started on the antibiotics but the patient got worse and came to the emergency room. She was seen in the emergency room and was found to have left sided multifocal pneumonia with a white count of 21,000. She was admitted to the hospital and started on the Rocephin 1 gram daily initially, WBC went up to 27,000 so changed it to the Zosyn IV along with breathing treatment. Gradually the patient was getting better and less short of breath, up and about walking and did not have any complication. Repeat chest x-ray was negative and repeat CT scan showed the left upper lobe pneumonia which is getting better. At that time the patient been up and about walking and did not have any problems so patient being discharged home. TIME SPENT: MORE THAN 55 MINUTES [facility]
== END 2018-01-30 11:05 | disposition home or self-care (01) | DRG 193 ==
LOC: ED 10:40 → MEDSURG A 12:27
PROVIDERS: ADMIT Emergency Medicine; ATTEND Emergency Medicine
DX: J18.9 Pneumonia, unspecified organism (principal); J96.91 Respiratory failure, unspecified with hypoxia; J44.1 Chronic obstructive pulmonary disease with (acute) exacerbation; R04.2 Hemoptysis; R50.9 Fever, unspecified; I10 Essential (primary) hypertension; E11.9 Type 2 diabetes mellitus without complications; M19.90 Unspecified osteoarthritis, unspecified site; R42 Dizziness and giddiness; D64.9 Anemia, unspecified; F31.9 Bipolar disorder, unspecified; F41.8 Other specified anxiety disorders; K44.9 Diaphragmatic hernia without obstruction or gangrene; F34.1 Dysthymic disorder; M06.9 Rheumatoid arthritis, unspecified; G47.30 Sleep apnea, unspecified; Z79.84 Long term (current) use of oral hypoglycemic drugs; Z79.899 Other long term (current) drug therapy; Z99.89 Dependence on other enabling machines and devices; Z87.891 Personal history of nicotine dependence; Z87.01 Personal history of pneumonia (recurrent)
CPT/HCPCS: 36415; 80053; 81001; 82550; 82803; 82962; 83970; 84145; 84484; 85007; 85025; 87502; 87651; 93005; 93010; 94640; 96365; 99284

== ENCOUNTER 2018-02-27 09:39 | Outpatient (CLI) ==
--- NOTE | 2018-02-27 10:26 | CT ---
EXAM: CT Abdomen without contrast. CT Pelvis without contrast. HISTORY: Right lower quadrant pain. COMPARISON: 05/29/2016. TECHNIQUE: Multiple axial images of the abdomen and pelvis were obtained without intravenous contras t. Images were reformatted in the sagittal and coronal plane. FINDINGS: Please note that evaluation of the abdominal and pelvic structures is limited due to lack of intravenous contrast. Calcified granulomatous changes noted in the lung bases. No acute osseous abnormality identified. The liver, gallbladder, pancreas, spleen, and adrenal glands demonstrate normal contour. No calcifie d renal stones or hydronephrosis detected. Right kidney is smaller on the left. Moderate sized hiatal hernia is present. Descending duodenal diverticulum noted. There is no eviden ce for bowel obstruction or acute inflammation. Colonic diverticulosis noted. The appendix is fox l. Urinary bladder is not well distended. Uterus is absent. Atherosclerotic calcifications present . No free fluid or free air identified. IMPRESSION: 1. No acute abnormality within the abdomen or pelvis. 2. Moderate hiatal hernia. 3. Diverticulosis.
== END 2018-02-27 09:40 | disposition home or self-care (01) ==
LOC: RAD 09:39
PROVIDERS: ATTEND Emergency Medicine
DX: R10.31 Right lower quadrant pain (principal); K59.1 Functional diarrhea

== ENCOUNTER 2018-05-25 10:45 | Outpatient (RCR) | END 2018-05-29 23:59 | LOC: NEWBEG 10:45 | PROVIDERS: ATTEND Psychiatry & Neurology Psychiatry | DX: F41.9 Anxiety disorder, unspecified (principal); F31.81 Bipolar II disorder | CPT/HCPCS: 90792 ==

== ENCOUNTER 2018-06-05 12:03 | Outpatient (CLI) | END 2018-06-05 12:04 | disposition home or self-care (01) | LOC: LAB 12:03 | PROVIDERS: ATTEND Psychiatry & Neurology Psychiatry | DX: Z79.899 Other long term (current) drug therapy (principal) | CPT/HCPCS: 36415; 80061; 83036 ==

== ENCOUNTER 2018-06-15 10:00 | Outpatient (RCR) | END 2018-06-29 23:59 | LOC: NEWBEG 10:00 | PROVIDERS: ATTEND Psychiatry & Neurology Psychiatry | DX: F41.9 Anxiety disorder, unspecified (principal); F31.81 Bipolar II disorder; Z79.899 Other long term (current) drug therapy | CPT/HCPCS: 36415; 80061; 83036; 90853; 99214 ==

== ENCOUNTER 2018-07-27 10:00 | Outpatient (RCR) | payer OTHER | END 2018-07-29 23:59 | LOC: NEWBEG 10:00 | PROVIDERS: ATTEND Psychiatry & Neurology Psychiatry | DX: F41.9 Anxiety disorder, unspecified (principal); F31.81 Bipolar II disorder | CPT/HCPCS: 90853; 99214 ==

== ENCOUNTER 2018-08-24 10:00 | Outpatient (RCR) | END 2018-08-29 23:59 | LOC: NEWBEG 10:00 | PROVIDERS: ATTEND Psychiatry & Neurology Psychiatry | DX: F41.9 Anxiety disorder, unspecified (principal); F31.81 Bipolar II disorder | CPT/HCPCS: 90853; 99213; 99214 ==

== ENCOUNTER 2018-10-26 10:00 | Outpatient (RCR) | END 2018-10-29 23:59 | LOC: NEWBEG 10:00 | PROVIDERS: ATTEND Psychiatry & Neurology Psychiatry | DX: F41.9 Anxiety disorder, unspecified (principal); F31.81 Bipolar II disorder | CPT/HCPCS: 90853; 99213 ==

== ENCOUNTER 2018-11-07 12:12 | Emergency (ER) | payer OTHER ==
[2018-11-07 12:20] VITALS: BP 147/85; TEMP 98.2; BMI 29.2
--- NOTE | 2018-11-07 12:50 | ED.PDOC ---
General ED Provider: Dr. VIC HANSEN Chief Complaint: Hand Pain/Injury Stated Complaint: HAND/ WRIST PAIN RIGHT SIDED AFTER A FALL NO OTHER INJURY Time Seen by Physician: 12:18 (SEEN WITH ZAIRA) Mode of Arrival: Walk-In Information Source: Patient Exam Limitations: No limitations Primary Care Provider: SIDNEY GARCIA Nursing and Triage Documentation Reviewed and Agree: Yes Does patient meet sepsis criteria?: No System Inflammatory Response Syndrome: Not Applicable Sepsis Protocol: For patient's 13 years and over: Temp is 96.8 and below OR 101 and greater Pulse >90 BPM Resp >20/minute Acutely Altered Mental Status Are patient's symptoms suggestive of a new infection, such as: -Pneumonia -Skin, Soft Tissue -Endocarditis -UTI -Bone, Joint Infection -Implantable Device -Acute Abdominal Infection -Wound Infection -Meningitis -Blood Stream Catheter Infection -Unknown Musculoskeletal Complaint Exam - Hand/Wrist Complaint/Exam Location of Pain: Reports: Right, Hand, Wrist Mechanism of Injury: Reports: Trauma (FALL) Onset/Duration: 1 DAY Symptoms Are: Still present Initial Severity: Mild Current Severity: Mild Location: Reports: Discrete Character: Reports: Aching Alleviating: Reports: Rest Aggravating: Reports: Movement Associated Signs and Symptoms: Reports: Swelling (DORSAL RIGHT HAND ). Denies: Redness, Bruising, Fever, Weakness, Numbness, Tingling Hand/Wrist Findings: Present: Swelling. Absent: Ecchymosis, Abnormal contour, Rotation, Ligamentous instability, Tinel's Sign, Phalen's Sign, Laceration, Nail avulsion, Subungal hematoma, Erythema, Warmth, Blisters, Other joint pain, Foreign body Compartment Syndrome Risk Factors: Present: Pain Differential Diagnoses: Closed Fracture, Sprain, Strain Review of Systems - Review Of Systems Constitutional: Reports: No symptoms Eyes: Reports: No symptoms Ears, Nose, Mouth, Throat: Reports: No symptoms Respiratory: Reports: No symptoms Cardiac: Reports: No symptoms GI: Reports: No symptoms : Reports: No symptoms Musculoskeletal: Reports: Joint pain (HAND RIGHT) Skin: Reports: No symptoms Neurological: Reports: No symptoms Endocrine: Reports: No symptoms Hematologic/Lymphatic: Reports: No symptoms All Other Systems: Reviewed and Negative Past Medical History - Past Medical History Previously Healthy: No Endocrine: Reports: DM 2, Hypothyroid, Other (GOUT ) Cardiovascular: Reports: None Respiratory: Reports: COPD, Bronchitis (bronchitis several times), Pneumonia Hematological: Reports: None Gastrointestinal: Reports: GERD Genitourinary: Reports: None Neuro/Psych: Reports: Depression, Other ( HEAD INJURY 2-3 MONTHS AGO FROM FALL) Musculoskeletal: Reports: Arthritis, Other Cancer: Reports: None Last Menstrual Period: hysterectomy Other Pertinent Past Medical History: HYPOTENSION (PAST HISTORY OF HYPERTENSION ) - Surgical History General Surgical History: Reports: Hysterectomy ( hyst 38 years old), Orthopedic ( right foot surgery at 50 years old), Other (BILATERAL CATARACT EXTRACTIONS), Unknown - Family History Family History: Reports: Unknown - Social History Smoking Status: Former smoker Hx Substance Use: No Alcohol Screening: None Physical Exam - Physical Exam Appearance: Well-appearing, No pain distress, Well-nourished Eyes: WIL, EOMI, Conjunctiva clear ENT: Ears normal, Nose normal, Oropharynx normal Respiratory: Airway patent, Breath sounds clear, Breath sounds equal, Respirations nonlabored Cardiovascular: RRR, Pulses normal, No rub, No murmur GI/: Soft, Nontender, No masses, Bowel sounds normal, No Organomegaly Musculoskeletal: Edema (RIGHT DORSAL ASPECT OF THE RIGHT HAND ROM INTACT SENSATION CIRCULATION RIGHT HAND WNL ELBOW IS WNL) Skin: Warm, Dry, Normal color Neurological: Sensation intact, Motor intact, Reflexes intact, Cranial nerves intact, Alert, Oriented Psychiatric: Affect appropriate, Mood appropriate Critical Care Note - Critical Care Note Total Time (mins): 0 Course - Course Orders, Labs, Meds: Orders Category Date Time Status HAND, RIGHT 3 VIEWS Stat RADS 11/07/18 12:47 Completed WRIST, RIGHT 3 VIEWS Stat RADS 11/07/18 12:47 Completed Vital Signs: Temp Pulse Resp BP Pulse Ox 11/07/18 12:13 98.2 F 97 H 20 147/85 H 92 L Departure - Departure Time of Disposition: 12:30 Disposition: HOME SELF-CARE Discharge Problem: Injury of hand, Hand pain Instructions: Hand Sprain (ED) Condition: Good Pt referred to PMD for follow-up: Yes IPMP verified?: No Additional Instructions: Please call your Family Physician as soon as possible to schedule a follow-up appointment. Prescriptions: Hydrocodone/Acetaminophen [Novinger 5-325 Tablet] 1 each PO Q6HR PRN #7 tablet PRN Reason: PAIN Allergies/Adverse Reactions: Allergies albuterol Allergy (Intermediate, Verified 11/07/18 12:21) Rash nebs tx causes rash Home Medications: Ambulatory Orders [place]-3 Fatty Acids/Fish Oil [Fish Oil 1,000 mg Capsule] 1,000 mcg PO DAILY 04/14 Oxycodone HCl/Acetaminophen [Percocet 10-325 Mg Tablet] 1 each PO TID 02/02/18 Bupropion HCl [Wellbutrin Xl] 150 mg PO DAILY 09/03/18 Imipramine HCl [Tofranil] 100 mg PO BEDTIME 09/03/18 Quetiapine Fumarate [Seroquel] 150 mg PO BEDTIME 09/03/18 Fluticasone Propionate [Flonase] 1 spray TAHIRA DAILY 10/05/18 Prednisone 10 mg PO BID 10/05/18 Hydrocodone/Acetaminophen [Novinger 5-325 Tablet] 1 each PO Q6HR PRN #7 tablet 07/18
--- NOTE | 2018-11-07 13:25 | DI ---
Exam: Three views of the right hand. Comparison: None available. Reason for exam: Fall. FINDINGS: No acute fracture or malalignment. The joint spaces appear well maintained. No unexplain ed calcific soft tissue density or radiopaque retained foreign body. Impression: No acute fracture is seen in the right hand.
--- NOTE | 2018-11-07 13:27 | DI ---
Exam: Three views of the right wrist. Comparison: None available. Reason for exam: Fall. FINDINGS: No acute fracture or malalignment. The joint spaces appear well maintained. No unexplain ed calcific soft tissue density or radiopaque retained foreign body. Impression: No acute fracture is seen in the right wrist
== END 2018-11-07 13:40 | disposition home or self-care (01) ==
LOC: ED 12:12
DX: S69.81XA Other specified injuries of right wrist, hand and finger(s), initial encounter (principal); W19.XXXA Unspecified fall, initial encounter
CPT/HCPCS: 99283

== ENCOUNTER 2018-11-12 10:00 | Outpatient (RCR) ==
[2018-10-05 10:13] VITALS: BMI 19.6
== END 2018-11-29 23:59 ==
LOC: NEWBEG 10:00
PROVIDERS: ATTEND Psychiatry & Neurology Psychiatry
DX: F41.9 Anxiety disorder, unspecified (principal); F31.81 Bipolar II disorder
CPT/HCPCS: 90853; 99213

== ENCOUNTER 2018-11-12 12:50 | Outpatient (CLI) | payer OTHER ==
--- NOTE | 2018-11-12 13:53 | DEXA ---
EXAM: BONE DENSITOMETRY HISTORY: Asymptomatic menopausal state. FINDINGS: Exam of the lumbar spine demonstrated a total bone mineral density of 0.959 g/cm2. T score is -1.8. Age-matched Z score is 0.4. Exam of the hips revealed a total mean bone mineral density of 0.004 g/cm2. Mean hip T score: 0.0 Mean hip age-matched Z score: 0.0 FRAX WHO Fracture Risk Assessment. Ten year probability of fracture (%). Major Osteoporotic Fracture 21.9% Hip Fracture 7.4%. IMPRESSION: 1. Values presented indicate osteopenia of the spine. 2. Values presented indicate osteopenia of the hips.
--- NOTE | 2018-11-12 13:55 | US ---
EXAM: Thyroid ultrasound History: Dysphagia. Technique: Multiple sonographic images through the thyroid gland were obtained. Color duplex Dopple r was used to interrogate vascular flow. Findings: The right lobe of the thyroid measures 3.3 cm x 1.0 cm x 1.4 cm and demonstrates multiple nodules wit h the largest being complex and measuring 0.9 cm. The thyroid isthmus measures 0.2 cm in thickness. The left lobe of the thyroid measures 2.4 cm x 0.7 cm x 1.0 cm and is without discrete nodule identif ied. No extrathyroidal masses are identified. Thyroid gland is not hypervascular. Impression: Multinodular right thyroid lobe. Recommend follow-up ultrasound in 6 months to document stability.
--- NOTE | 2018-11-12 15:15 | MRI ---
EXAM: MRI brain without IV contrast. DATE: 11/12/2018. HISTORY: CT head 10/05/2018. MRI brain 10 February 2016. TECHNIQUE: Sagittal T1W, axial T2W, axial FLAIR, axial T1W, axial DWI, and coronal T2W GRE sequences of the brain were obtained using 1.5 Marlene magnet. No IV contrast. COMPARISON: CT head 10/05/2018. MRI brain 10 February 2016. FINDINGS: The lateral ventricles, third ventricle, Sylvian fissures and many cerebral sulci are enla rged due to involutional change. Fourth ventricle is not substantially enlarged. Aqueduct of Sylviu s is patent. Some cerebellar sulci and the horizontal fissures are slightly prominent. No midline s hift, mass effect or abnormal extra-axial fluid collection is apparent. No acute infarct, acute hemo rrhage or neoplasm is identified. Broad, confluent rim of T2W/FLAIR hyperintensity is observed in th e white matter abutting the anterior horn and body of each lateral ventricle. Sub centimeter and manju e larger areas of T2W/FLAIR hyperintensity are observed in the brooks radiata, centrum semiovale, and subcortical white matter bilaterally. There also linear areas of T2W/FLAIR hyperintensity in the ex ternal capsule and internal capsule bilaterally. The christie - white matter differentiation is normal. Multiple tiny T2W bright foci in both basal ganglia may represent prominent Virchow-Alex spaces. A reas of T2W GRE black signal within each basal ganglia appear to correspond with small calcifications on the recent CT scan. The 7th/8th cranial nerve complexes, cerebellopontine angles, brainstem, and visible cervical spinal cord are normal. There is no cerebellar tonsillar ectopia. The pituitary g land is somewhat small in size, with CSF filling part of the pituitary fossa. Corpus callosum is nor mal in size and configuration. Flow voids are present in the major intracranial arteries and in the dural venous sinuses. No aneurysm, AVM or dural venous sinus thrombosis is apparent. Appearance of the lens of each eye suggests prior cataract surgery. No other orbit abnormality is identified. The mastoid air cells are unremarkable. Frontal sinuses are hypoplastic. There is no acute sinusitis. Several small lymph nodes are present in the suboccipital soft tissues of the upper neck. No neck m ass or lymphadenopathy is detected. Mild thickening of the inner table of the frontal bone is demons trated. No calvarial neoplasm or acute fracture is evident. IMPRESSIONS: 1. No acute infarct, hemorrhage, neoplasm or hydrocephalus. 2. Benign, bilateral basal ganglia mineral deposition/calcifications. 3. Extensive cerebral leukomalacia - likely due to small vessel disease or chronic hypertensive ence phalopathy. Metabolic disorder, sequela of infection, vasculitis, or demyelinating disease are less likely considerations. 4. Mild cerebral and minor cerebellar atrophy. 5. Mild, benign hyperostosis frontalis interna. 6. Small pituitary gland. Partially empty sella. 7. Benign-appearing suboccipital lymph nodes.
--- NOTE | 2018-11-14 08:41 | MAMMO ---
EXAM: Bilateral digital screening mammogram (2-D and 3-D) History: Screening Comparison: Bilateral mammogram 09/19/2013 Findings: MLO and CC views of bilateral breasts demonstrate scattered fibroglandular breast parenchy ma. CAD was reviewed by the radiologist. Tomosynthesis was performed. Benign bilateral vascular ca lcifications. There are no dominant masses, no suspicious microcalcifications and no architectural d istortions. Impression: Benign mammogram with no significant interval change. Recommend followup routine screen ing mammography in 1 year. BIRADS 2, benign
== END 2018-11-12 12:51 | disposition home or self-care (01) ==
LOC: RAD 12:50
PROVIDERS: ATTEND Nurse Practitioner Family
DX: Z12.31 Encounter for screening mammogram for malignant neoplasm of breast (principal); Z78.0 Asymptomatic menopausal state; R00.0 Tachycardia, unspecified; R42 Dizziness and giddiness; R29.6 Repeated falls; R26.89 Other abnormalities of gait and mobility; R13.10 Dysphagia, unspecified; F41.9 Anxiety disorder, unspecified; F31.81 Bipolar II disorder
CPT/HCPCS: 90853; 93005; 93010; 99213

== ENCOUNTER 2018-12-24 10:00 | Outpatient (RCR) | END 2018-12-27 23:59 | LOC: NEWBEG 10:00 | PROVIDERS: ATTEND Psychiatry & Neurology Psychiatry | DX: F41.9 Anxiety disorder, unspecified (principal); F31.81 Bipolar II disorder | CPT/HCPCS: 90853; 99213 ==

== ENCOUNTER 2019-01-16 12:17 | Outpatient (CLI) | payer OTHER | END 2019-01-16 12:18 | disposition home or self-care (01) | LOC: CAR 12:17 | PROVIDERS: ATTEND Psychiatry & Neurology Psychiatry | DX: Z79.899 Other long term (current) drug therapy (principal) | CPT/HCPCS: 36415; 80053; 85025; 90853; 93005; 93010 ==

== ENCOUNTER 2019-01-25 10:00 | Outpatient (RCR) | END 2019-01-27 23:59 | LOC: NEWBEG 10:00 | PROVIDERS: ATTEND Psychiatry & Neurology Psychiatry | DX: F41.9 Anxiety disorder, unspecified (principal); F31.81 Bipolar II disorder; F01.50 Vascular dementia, unspecified severity, without behavioral disturbance, psychotic disturbance, mood disturbance, and anxiety | CPT/HCPCS: 90853; 99214 ==

== ENCOUNTER 2019-02-25 09:22 | Outpatient (CLI) ==
[2019-02-08 12:05] VITALS: BMI 29.8
== END 2019-02-25 09:23 | disposition home or self-care (01) ==
LOC: CAR 09:22
PROVIDERS: ATTEND Psychiatry & Neurology Psychiatry
DX: Z79.899 Other long term (current) drug therapy (principal); F41.9 Anxiety disorder, unspecified; F31.81 Bipolar II disorder; F01.50 Vascular dementia, unspecified severity, without behavioral disturbance, psychotic disturbance, mood disturbance, and anxiety
CPT/HCPCS: 36415; 80053; 85025; 90853; 93005; 93010

== ENCOUNTER 2019-02-25 10:00 | Outpatient (RCR) | END 2019-02-26 23:59 | LOC: NEWBEG 10:00 | PROVIDERS: ATTEND Psychiatry & Neurology Psychiatry | DX: F41.9 Anxiety disorder, unspecified (principal); F31.81 Bipolar II disorder; F01.50 Vascular dementia, unspecified severity, without behavioral disturbance, psychotic disturbance, mood disturbance, and anxiety | CPT/HCPCS: 90853; 99214 ==

== ENCOUNTER 2019-03-15 10:00 | Outpatient (RCR) ==
[2019-02-08 12:05] VITALS: BMI 29.8
== END 2019-03-29 23:59 ==
LOC: NEWBEG 10:00
PROVIDERS: ATTEND Psychiatry & Neurology Psychiatry
DX: F41.9 Anxiety disorder, unspecified (principal); F31.81 Bipolar II disorder; F01.50 Vascular dementia, unspecified severity, without behavioral disturbance, psychotic disturbance, mood disturbance, and anxiety
CPT/HCPCS: 90853; 99213

== ENCOUNTER 2019-04-08 13:46 | Outpatient (CLI) ==
[2019-02-08 12:05] VITALS: BMI 29.8
== END 2019-04-08 13:47 | disposition home or self-care (01) ==
LOC: CAR 13:46
PROVIDERS: ATTEND Nurse Practitioner Family
DX: Z51.81 Encounter for therapeutic drug level monitoring (principal); I10 Essential (primary) hypertension; J44.9 Chronic obstructive pulmonary disease, unspecified
CPT/HCPCS: 36415; 80053; 85025; 93005; 93010

== ENCOUNTER 2023-10-07 18:13 | Observation (INO) ==
--- NOTE | 2023-10-07 18:43 | ED.PDOC ---
General ED Provider: Dr. KATERIN ARCE MD Chief Complaint: Respiratory Complaint Stated Complaint: CC: Coughing since last night. Cough is occasionally productive. Fever to 102. Some SOB and some headache. ? some sore throat. Not much of an appetite today. Some nausea but no vomiting or abdominal pain. No urinary sx. Had flu and COVID vaccine. Lives alone but daughter is staying with her recently. She falls frequently but no trauma to head or neck. hx of bronchitis, HTN, GERD, Depression. Gout Time Seen by Provider: 10/07/23 18:16 Mode of Arrival: Walk-In Information Source: Patient Exam Limitations: No limitations Primary Care Provider: CHANDRA NÚÑEZ Referred to ED by: Other (self) Nursing and Triage Documentation Reviewed and Agree: Yes Review of Systems Review Of Systems Constitutional: Reports Fever and Malaise Eyes: Reports No symptoms Ears, Nose, Mouth, Throat: Reports Nose discharge and Throat pain; Denies Ear pain or Ear discharge Respiratory: Reports Cough and Shortness of Breath Cardiac: Denies Chest pain GI: Reports Nausea; Denies Abdomen distended, Abdominal pain or Vomiting : Reports No symptoms Musculoskeletal: Denies Back pain, Joint swelling, Muscle stiffness or Neck pain Skin: Reports No symptoms Neurological: Reports No symptoms All Other Systems: Reviewed and Negative [facility] Medical History Ataxia Bone fracture Bowel incontinence Chronic nausea Chronic obstructive pulmonary disease Chronic pain Confusion Depression Elevated parathyroid hormone Essential tremor Gastroesophageal reflux disease Hallucination Hiatal hernia Hyperlipidemia Hypertension Hypothyroidism Imbalance Intermittent abdominal pain Measles Memory loss Mumps On supplemental oxygen by nasal cannula Osteoporosis Serum calcium elevated Syncopal episodes Tremors of nervous system UTI symptoms Family History Mother Myocardial infarction Cerebrovascular accident BROTHER Cancer Social History Smoking and tobacco status: Never smoker Second hand smoke exposure: Yes Alcohol intake: never Substance use type: does not use Noelle/[employer] Special noelle needs: No Agree to transfusion: Yes Adopted: No Caregiver/support person: Yes Household members: significant other Housing: house Lives independently: Yes Highest education level completed: Associate degree: academic program Financial difficulty paying for basics: not applicable service: No Current occupational status: retired Current occupational exposures/hazards: No Pets and animals: Yes History of recent travel: No Sexually active: No Do you think of yourself as: straight/heterosexual Current gender identity: female Seatbelt use: always Helmet use: No (N/A) Drives intoxicated or rides with intoxicated solo truck driver: No Water heater temperature set < 120 degrees: Yes Working smoke detector in home: Yes Fire extinguisher in home: Yes Carbon monoxide detector in home: No Firearms in home: Yes (Notified patient, guns need to be locked up) Firearms unloaded and locked: No Surgical History History of musculoskeletal system surgery Status post hysterectomy Female Reproductive History Menstrual Hx Hysterectomy: Yes Hx Tubal Ligation: No Physical Exam Physical Exam Appearance: Reports No pain distress Ill-appearing: Mild Pain Distress: None Eyes: Reports EOMI and Conjunctiva clear ENT: Reports Ears normal and Oropharynx normal Neck: Supple Respiratory: Reports Airway patent, Breath sounds equal and Respirations nonlabored; Denies Airway obstructed, Wheezes or Retractions Cardiovascular: Reports RRR, Pulses normal and Tachycardia GI/: Reports Soft, Nontender, No masses, Bowel sounds normal and No Organomegaly Musculoskeletal: Reports Normal strength and ROM intact Skin: Reports Dry and Normal color Neurological: Reports Sensation intact and Motor intact Psychiatric: Reports Affect appropriate and Mood appropriate Re-Evaluation Re-Evaluation Time of Re-Evaluation: 20:17 Status: Unchanged Vital Signs Stable: Yes Appearance: Other (comfortable, no distress) Skin: Warm and Dry Neuro: Alert and Oriented X3 Physician Notification Case Discussed Physician Notified: Juan C Guy NP Time of Notification: 20:18 Comments: Admit to ObS for IV antibiotic use Admit To: Observation Critical Care Note Critical Care Note Total Critical Care Time (mins): 0 Course Course 10/07/23 19:46 10/07/23 19:46 Orders, Labs, Meds: Lab Review 10/07/23 10/07/23 10/07/23 16:50 19:05 19:46 WBC 21.73 H RBC 4.45 Hgb 13.8 Hct 43.4 MCV 97.5 MCH 31.0 MCHC 31.8 RDW Coeff of Fawad 12.7 Plt Count 249 Immature Gran % (Auto) 0.6 Neut % (Auto) 83.5 H Lymph % (Auto) 9.0 L [place] % (Auto) 6.7 Eos % (Auto) 0.0 Baso % (Auto) 0.2 Neut # (Auto) 18.1 H Lymph # (Auto) 2.0 [place] # (Auto) 1.5 Eos # (Auto) 0.0 Baso # (Auto) 0.0 Immature Gran # (Auto) 0.1 Sodium 136.7 Potassium 3.79 Chloride 104.5 Carbon Dioxide 23.9 Anion Gap 12.09 BUN 17.1 H Creatinine 1.12 Estimated GFR (MDRD) 47.00 BUN/Creatinine Ratio 15.26 Glucose 108.0 H Lactic Acid 1.07 Calcium 10.08 Total Bilirubin 0.72 AST 22.5 ALT 15.1 Alkaline Phosphatase 90.9 Total Protein 7.63 Albumin 4.40 Globulin 3.23 Albumin/Globulin Ratio 1.36 Urine Color Yellow Urine Clarity Clear Urine pH 6.5 Ur Specific [place] 1.015 Urine Protein Negative Urine Glucose (UA) Negative Urine Ketones Negative Urine Blood Trace-intact H Urine Nitrite Negative Urine Bilirubin Negative Urine Urobilinogen 4.0 H Ur Leukocyte Esterase Trace H Ur Squamous Epith Cells Pending Influ A Molecular Assay Negative by naat Influ B Molecular Assay Negative by naat SARS CoV-2 RNA Rapid LIZBET Negative Orders Category Date Time Status OBSERVATION [PLACE PATIENT OBSERVATION] .TO [facility] ADMISSION 10/07/23 20:19 Ordered (NON-MONITORED BED) IV [ED IV/MEDIPORT/POWERPORT] .ONCE EMERGENCY 10/07/23 19:22 Active BLOOD CULTURE (ED ONLY) Stat LAB 10/07/23 19:46 Received CBC W/ AUTO DIFF Stat LAB 10/07/23 19:46 Completed CMP [COMPREHENSIVE METABOLIC PANEL] Stat LAB 10/07/23 19:46 Completed COVID [SARS COV-2 RNA RAPID LIZBET] Stat LAB 10/07/23 16:50 Completed FLU A & B MOLECULAR [FLU A/B MOLECULAR] Stat LAB 10/07/23 16:50 Completed LACTIC ACID Stat LAB 10/07/23 19:46 Completed PROCALCITONIN Stat LAB 10/07/23 19:46 Received URINALYSIS C & S IF INDICATED Stat LAB 10/07/23 19:05 Results 0.9 % Sodium Chloride [Saline Flush] Meds 10/07/23 19:22 Active 1 syr IVF PRN PRN Azithromycin Inj [Zithromax] 500 mg Meds 10/07/23 19:22 Active 0.9 % Sodium Chloride [Sodium Chloride] 250 ml IV ONCE CHEST, 2 VIEWS PA & LAT Stat RADS 10/07/23 18:38 Completed Medications Generic Name Dose Route Start Last Admin Trade Name Freq PRN Reason Stop Dose Admin Azithromycin 500 mg/ Sodium 250 mls @ 250 mls/hr 10/07/23 19:22 10/07/23 19:43 Chloride IV 10/07/23 20:21 250 mls/hr ONCE ONE Administration Sodium Chloride 1 syr 10/07/23 19:22 0.9% Sodium Chloride 10 Ml Disp.Syrin IVF PRN PRN To flush IV Vital Signs: Temp Pulse Resp BP Pulse Ox 10/07/23 18:26 98.3 F 106 H 20 147/80 H 97 Discharge Plan Discharge Patient Disposition: PLACED OBSERVATION Discharge Problem: Pneumonia Did you review [place] P MANAGER for ALL controlled substances?: Not Applicable ED Provider: KATERIN ARCE Condition: Fair Physician Progress Note: []
--- NOTE | 2023-10-07 18:56 | DI ---
EXAM: CHEST RADIOGRAPH (2 VIEW) TECHNIQUE: AP and Lateral Chest Radiographs. HISTORY: Fever and cough COMPARISON: The 09/23/2020 FINDINGS: Lines, Tubes, Devices: None. Lungs and Pleura: Hazy densities in the mid and lower lungs. Reticular nodular densities. No pleur al effusion or pneumothorax. Cardiac silhouette: Normal. Bones: No acute abnormality. IMPRESSION: Hazy and reticular nodular densities in the mid and lower lungs. Correlate for pneumonitis. Clinical imaging follow-up to ensure resolution and exclude other etiologies.
[2023-10-07 19:09] LABS: MOLECULAR FLU A NEGATIVE BY NAAT (NEGATIVE); MOLECULAR FLU B NEGATIVE BY NAAT (NEGATIVE); SARS COV-2 RNA RAPID NAAT NEGATIVE (NEGATIVE)
[2023-10-07 19:16] LABS: BILIRUBIN,URINE Negative (NEGATIVE); CLARITY,URINE Clear (CLEAR); COLOR,URINE Yellow (YELLOW); GLUCOSE, URINE (UA) Negative (NEGATIVE); KETONES,URINE Negative (NEGATIVE); LEUKOCYTE ESTERASE ,URINE Trace (NEGATIVE); NITRITE,URINE Negative (NEGATIVE); PH,URINE 6.5 (5-9); PROTEIN,URINE Negative (NEGATIVE); URINE, BLOOD Trace-intact (NEGATIVE)
[2023-10-07] MEDS ORDERED: ZITHROMAX 500 MG in SODIUM CHLORIDE 250 ML IV ONE ×2 (19:22→20:19)
[2023-10-07 19:51] LABS: BASOPHILS % (AUTO) 0.2 % (0.0-3.0); HEMATOCRIT 43.4 % (37.0-47.0); HEMOGLOBIN 13.8 g/dl (12.0-16.0); IMMATURE GRANULOCYTE # (AUTO) 0.1 (0.0-1.0); IMMATURE GRANULOCYTE % (AUTO) 0.6 % (0.0-5.0); MEAN CORPUSCULAR HGB CONC 31.8 (31.8-35.4); MEAN CORPUSCULAR VOLUME 97.5 fl (81.0-99.0); MONOCYTES # (AUTO) 1.5 K/uL (0.4-2.0); MONOCYTES % (AUTO) 6.7 (0-10); NEUTROPHILS # (AUTO) 18.1 K/ul (2.0-6.9); NEUTROPHILS % (AUTO) 83.5 % (42.2-75.2); PLATELET COUNT 249 10^3/uL (140-440); RDW COEFFICIENT OF VARIATION 12.7 % (11.6-14.8); RED BLOOD COUNT 4.45 10^6/ul (4.20-5.40); WHITE BLOOD COUNT 21.73 K/ul (4.6-10.2)
[2023-10-07 20:04] LABS: ALANINE AMINOTRANSFERASE 15.1 U/L (0-35); ALBUMIN 4.4 g/dL (3.5-5.0); ALKALINE PHOSPHATASE 90.9 U/L (53-141); ASPARTATE AMINO TRANSFERASE 22.5 U/L (14-36); BILIRUBIN,TOTAL 0.72 mg/dL (0.2-1.3); BLOOD UREA NITROGEN 17.1 mg/dL (7-17); CALCIUM 10.08 mg/dL (8.4-10.2); CARBON DIOXIDE 23.9 mmol/L (22-30.0); CHLORIDE 104.5 mmol/L (98-107); CREATININE 1.12 mg/dL (0.60-1.30); POTASSIUM 3.79 mmol/L (3.5-5.1); SODIUM 136.7 mmol/L (134.5-145); TOTAL PROTEIN 7.63 g/dL (6.3-8.2)
[2023-10-07] MEDS ORDERED: TYLENOL PO PRN (20:19)
[2023-10-07] MEDS ORDERED: ALBUTEROL 0.083% NEB NEB PRN (20:19)
[2023-10-07] MEDS ORDERED: MAXIPIME 1 GM VIAL 1 GM in SODIUM CHLORIDE 50 ML IV SCH ×2 (21:00→22:00)
[2023-10-07] MEDS ORDERED: MAXIPIME 1 GM VIAL ONE (21:26)
[2023-10-07] MEDS: SOLU-MEDROL 40 MG IVP SCH (21:31)
[2023-10-07] MEDS: ROBITUSSIN DM SYRUP PO PRN (21:31)
[2023-10-07 21:32] LABS: BACTERIA,URINE TRACE (NOT PRESENT); MUCUS,URINE TRACE (NOT PRESENT); SQUAMOUS EPITHELIAL CELL,UR 20-30 (0-5)
[2023-10-07] MEDS ORDERED: PERCOCET 10-325 PO PRN (21:49)
[2023-10-07 22:09] VITALS: BMI 29.8
[2023-10-07] MEDS: SEROQUEL PO SCH ×2 (22:22→22:23)
[2023-10-07] MEDS: MAXIPIME 2 GM/50 ML D5W 2 GM/50 ML BAG IV SCH (22:22)
[2023-10-07] MEDS: BUSPAR PO SCH (22:22)
[2023-10-07] MEDS: NEURONTIN PO SCH (22:23)
[2023-10-07] MEDS: DUONEB NEB SCH (22:51)
[2023-10-08] MEDS: DUONEB NEB SCH ×6 (01:17→22:03)
[2023-10-08] MEDS: SOLU-MEDROL 40 MG IVP SCH ×3 (05:21→20:32)
[2023-10-08 06:16] LABS: BASOPHILS % (AUTO) 0.1 % (0.0-3.0); IMMATURE GRANULOCYTE # (AUTO) 0.1 (0.0-1.0); IMMATURE GRANULOCYTE % (AUTO) 0.7 % (0.0-5.0); LYMPHOCYTES # (AUTO) 1.5 K/uL (0.60-3.4); LYMPHOCYTES % (AUTO) 9.3 (10.0-50.0); MEAN CORPUSCULAR HEMOGLOBIN 31.1 pg (27.0-31.0); MEAN CORPUSCULAR HGB CONC 31.7 (31.8-35.4); MEAN CORPUSCULAR VOLUME 98.1 fl (81.0-99.0); MONOCYTES # (AUTO) 0.2 K/uL (0.4-2.0); NEUTROPHILS # (AUTO) 14.7 K/ul (2.0-6.9); NEUTROPHILS % (AUTO) 88.9 % (42.2-75.2); PLATELET COUNT 217 10^3/uL (140-440); RDW COEFFICIENT OF VARIATION 12.8 % (11.6-14.8); RED BLOOD COUNT 4.18 10^6/ul (4.20-5.40)
[2023-10-08 06:20] LABS: WHITE BLOOD COUNT 16.52 K/ul (4.6-10.2)
[2023-10-08 06:27] LABS: ALANINE AMINOTRANSFERASE 15.7 U/L (0-35); ALBUMIN 4.14 g/dL (3.5-5.0); ALKALINE PHOSPHATASE 88.9 U/L (53-141); ASPARTATE AMINO TRANSFERASE 21.8 U/L (14-36); BILIRUBIN,TOTAL 0.7 mg/dL (0.2-1.3); BLOOD UREA NITROGEN 18.3 mg/dL (7-17); CALCIUM 10.37 mg/dL (8.4-10.2); CARBON DIOXIDE 22.6 mmol/L (22-30.0); CREATININE 0.99 mg/dL (0.60-1.30); GLUCOSE 184.9 mg/dL (74-106); POTASSIUM 3.78 mmol/L (3.5-5.1); SODIUM 140.8 mmol/L (134.5-145); TOTAL PROTEIN 7.3 g/dL (6.3-8.2)
[2023-10-08] MEDS: MAXIPIME 2 GM/50 ML D5W 2 GM/50 ML BAG IV SCH ×2 (08:12→20:34)
[2023-10-08] MEDS: PROTONIX PO SCH (08:12)
[2023-10-08] MEDS: BUSPAR PO SCH ×2 (08:12→20:33)
[2023-10-08] MEDS: NEURONTIN PO SCH ×3 (08:12→20:33)
--- NOTE | 2023-10-08 09:38 | PCM ---
Date of Service Date Seen by Provider: 10/08/23 Time Seen by Provider: 08:30 Admit Day/Time Admission Date: 10/07/23 Reason for Admission Chief Complaint: PNEUMONIA Hospital Provider Hospital Provider: PHIL PATHAK, [facility] [place] Primary Care Physician: CHANDRA NÚÑEZ History of Present Illness History of Present Illness: 78 yo female presented to the ER with fever and weakness. 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 Has had a fever since yesterday as high as 102. Has had a dry cough since Monday and felt weak. Has felt somewhat SOB at times. Wears oxygen PRN at home. Denies any chills, body aches, chest pain, back pain, N/V/D. Case Discussed With Case Discussed With: Patient's case was discussed with the ER Physicians, Dr. Noguera [facility] Medical History Hiatal hernia K44.9 - Diaphragmatic hernia without obstruction or gangrene (ICD-10) Bone fracture Fx right ankle T14.8XXA - Other injury of unspecified body region, initial encounter (ICD- 10) Gastroesophageal reflux disease K21.9 - Gastro-esophageal reflux disease without esophagitis (ICD-10) Chronic obstructive pulmonary disease J44.9 - Chronic obstructive pulmonary disease, unspecified (ICD-10) Depression F32.9 - Major depressive disorder, single episode, unspecified (ICD-10) Osteoporosis M81.0 - Age-related osteoporosis without current pathological fracture (ICD-10) Mumps B26.9 - Mumps without complication (ICD-10) Measles as a child B05.9 - Measles without complication (ICD-10) Surgical History History of musculoskeletal system surgery Fx ankle repair Z98.890 - Other specified postprocedural states (ICD-10) Status post hysterectomy Z90.710 - Acquired absence of both cervix and uterus (ICD-10) Family History Mother Myocardial infarction Cerebrovascular accident BROTHER Cancer Social History Smoking and tobacco status: Never smoker Second hand smoke exposure: Yes Alcohol intake: never Substance use type: does not use Noelle/presybeterian: Episcopal Special noelle needs: No Agree to transfusion: Yes Adopted: No Caregiver/support person: Yes Household members: significant other Housing: house Lives independently: Yes Highest education level completed: Associate degree: academic program Financial difficulty paying for basics: not applicable service: No Current occupational status: retired Current occupational exposures/hazards: No Pets and animals: Yes History of recent travel: No Sexually active: No Do you think of yourself as: straight/heterosexual Current gender identity: female Seatbelt use: always Helmet use: No (N/A) Drives intoxicated or rides with intoxicated regional flatbed truck driver: No Water heater temperature set < 120 degrees: Yes Working smoke detector in home: Yes Fire extinguisher in home: Yes Carbon monoxide detector in home: No Firearms in home: Yes (Notified patient, guns need to be locked up) Firearms unloaded and locked: No Allergies Allergies Allergy/AdvReac Type Severity Reaction Status Date / Time albuterol Allergy Intermediate Rash Verified 01/14/21 12:28 Current Medications Home Medications oxycodone-acetaminophen 10 mg-325 mg tablet (Percocet) 1 ea PO TID 02/02/18 [History Confirmed 10/07/23 Last Taken Unknown] quetiapine 100 mg tablet (Seroquel) 100 mg PO QHS #30 tabs 01/14/21 [Rx Confirme d 10/07/23 Last Taken Unknown] albuterol sulfate 90 mcg/actuation aerosol inhaler (ProAir HFA) 2 puff inhalation Q4-6H PRN shortness of breath or wheezing 30 days #1 puff 02/09/21 [Rx Confirmed 10/07/23 Last Taken Unknown] fluvoxamine 100 mg tablet 100 mg PO QHS #30 tabs 04/05/21 [Rx Confirmed 10/07/23 Last Taken Unknown] fluvoxamine 50 mg tablet See Rx Instructions .Route .COMPLEX #30 tabs 04/05/21 [Rx Confirmed 10/07/23 Last Taken Unknown] buspirone 10 mg tablet 10 mg PO BID 10/07/23 [History Confirmed 10/07/23 Last Taken 10/06/23] gabapentin 600 mg tablet 600 mg PO TID 10/07/23 [History Confirmed 10/07/23 Last Taken Unknown] pantoprazole 40 mg tablet,delayed release 40 mg PO DAILY 10/07/23 [History Confirmed 10/07/23 Last Taken Unknown] quetiapine 25 mg tablet 25 mg PO BEDTIME 10/07/23 [History Confirmed 10/07/23 Last Taken 10/06/23] Home Acetaminophen (Acetaminophen 325 Mg Tablet) 650 mg PO Q4H PRN PRN Reason: Mild Pain Albuterol Sulfate (Albuterol Sulfate 0.083% Vial.Neb) 2.5 mg NEB RTQ4H PRN PRN Reason: Wheezing Albuterol/Ipratropium (Ipratropium/Albuterol Vial.Neb) 3 ml NEB RTQ4H [facility] Last Admin: 10/08/23 09:02 Dose: 3 ml Buspirone HCl (Buspirone Hcl 10 Mg Tablet) 10 mg PO BID [facility] Last Admin: 10/08/23 08:12 Dose: 10 mg Gabapentin (Gabapentin 300 Mg Capsule) 600 mg PO TID [facility] Last Admin: 10/08/23 08:12 Dose: 600 mg Guaifenesin/Dextromethorphan (Guaifenesin/Dextromethorphan 200/20 Mg/10 Ml Cup) 10 ml PO Q4H PRN PRN Reason: Cough Last Admin: 10/07/23 21:31 Dose: 10 ml Azithromycin 500 mg/ Sodium (Chloride) 250 mls @ 250 mls/hr IV BEDTIME [facility] Stop: 10/11/23 20:59 CEFEPIME 2 GM/D5W (Maxipime 2 Gm/50 Ml D5w) 2 gm in 50 mls @ 100 mls/hr IV Q12HR [facility] Stop: 10/10/23 22:08 Last Admin: 10/08/23 08:12 Dose: 100 mls/hr Methylprednisolone Sodium Succinate (Methylprednisolone Sod Succ/Pf 40 Mg/Ml Vial) 40 mg IVP Q8HR [facility] Last Admin: 10/08/23 05:21 Dose: 40 mg Oxycodone/Acetaminophen (Oxycodone/Acetaminophen 10/325 Mg Tablet) 1 tab PO TID PRN PRN Reason: Pain Pantoprazole Sodium (Pantoprazole Sodium 40 Mg Tablet.Dr) 40 mg PO QDAC2 [facility] Last Admin: 10/08/23 08:12 Dose: 40 mg Quetiapine Fumarate (Quetiapine Fumarate 25 Mg Tablet) 25 mg PO BEDTIME [facility] Last Admin: 10/07/23 22:22 Dose: 25 mg Quetiapine Fumarate (Quetiapine Fumarate 100 Mg Tablet) 100 mg PO BEDTIME [facility] Last Admin: 10/07/23 22:23 Dose: 100 mg Sodium Chloride (0.9% Sodium Chloride 10 Ml Disp.Syrin) 1 syr IVF PRN PRN PRN Reason: To flush IV Discontinued Medications Azithromycin 500 mg/ Sodium (Chloride) 250 mls @ 250 mls/hr IV ONCE ONE Stop: 10/07/23 20:21 Last Admin: 10/07/23 19:43 Dose: 250 mls/hr Azithromycin 500 mg/ Sodium (Chloride) 250 mls @ 250 mls/hr IV ONCE ONE Stop: 10/07/23 21:18 Last Admin: 10/07/23 22:14 Dose: Not Given CEFEPIME 2 GM/D5W (Maxipime 2 Gm/50 Ml D5w) 2 gm in 50 mls @ 100 mls/hr IV Q12HR [facility] Stop: 10/11/23 21:59 Cefepime HCl 1 gm/ Sodium (Chloride) 50 mls @ 100 mls/hr IV Q12HR [facility] Stop: 10/10/23 21:59 Review of Systems Constitutional: Reports Fever Eyes: Reports No symptoms Ears: Reports No symptoms Nose: Reports No symptoms Throat: Reports No symptoms Cardiovascular: Reports No symptoms Respiratory: Reports Cough and Shortness of air Gastrointestinal: Reports No symptoms Genitourinary: Reports No Symptoms Musculoskeletal: Reports No symptoms Endocrine: Reports No symptoms Hematology: Reports No symptoms Immunology: Reports No symptoms Neurological: Reports No symptoms Psychiatric: Reports No symptoms Physical examination Most Recent Vital Signs: Most Recent Vital Signs Temperature 98.8 F 10/08/23 05:46 Temperature Source Temporal Artery Scan 10/08/23 05:46 Temperature Source Infrared 10/07/23 18:26 Pulse Rate 83 10/08/23 05:46 Respiratory Rate 20 10/08/23 05:46 Blood Pressure 126/74 10/08/23 05:46 Blood Pressure Mean 91 10/08/23 05:46 Blood Pressure Left Arm 143/80 10/07/23 20:50 Blood Pressure Location Left Arm 10/08/23 05:46 Blood Pressure Position Supine 10/08/23 05:46 O2 Sat by Pulse Oximetry 96 10/08/23 09:11 Oxygen Delivery Method Nasal Cannula 10/08/23 09:11 Oxygen Flow Rate 2 10/08/23 09:11 Height 5 ft 5 in 10/07/23 20:50 Weight 179 lb 4 oz 10/07/23 20:50 Telemetry Heart Rate 52 L 01/04/21 15:49 Telemetry SPO2 97 01/04/21 15:49 Appearance: Positive No Apparent Distress, Alert and Oriented x3 and Ill- Appearing Skin: Positive Warm HEENT: Positive Normocephalic and PERRLA Neck: Positive Supple and Midline Trachea Chest/Lungs: Positive Symmetrical With Equal Breath Sounds, Clear to Auscultation Bilaterally (diminished) and Good Air Movement all 4 Lung [place] Heart: Positive RRR and Pulses Normal GI/: Positive Soft, Nontender, Bowel Sounds Normal and No Distention Musculoskeletal: Positive Not Examined Extremities: Positive Intact Peripheral Pulses, Stable Joints Without Laxity and Good ROM in All Joints Neurological: Positive Sensation Intact, Motor intact, Reflexes Intact, Alert, Oriented and Muscle Strength 5/5 in Upper and Lower Extremities Bilaterally Psychiatric: Positive Oriented x4, Appropriate Mood and Appropriate Affect Labs This Visit Labs This Visit: Labs This Visit 10/07/23 10/07/23 10/07/23 16:50 19:05 19:46 WBC 21.73 H RBC 4.45 Hgb 13.8 Hct 43.4 MCV 97.5 MCH 31.0 MCHC 31.8 RDW Coeff of Fawad 12.7 Plt Count 249 Immature Gran % (Auto) 0.6 Neut % (Auto) 83.5 H Lymph % (Auto) 9.0 L [place] % (Auto) 6.7 Eos % (Auto) 0.0 Baso % (Auto) 0.2 Neut # (Auto) 18.1 H Lymph # (Auto) 2.0 [place] # (Auto) 1.5 Eos # (Auto) 0.0 Baso # (Auto) 0.0 Immature Gran # (Auto) 0.1 Sodium 136.7 Potassium 3.79 Chloride 104.5 Carbon Dioxide 23.9 Anion Gap 12.09 BUN 17.1 H Creatinine 1.12 Estimated GFR (MDRD) 47.00 BUN/Creatinine Ratio 15.26 Glucose 108.0 H Lactic Acid 1.07 Calcium 10.08 Total Bilirubin 0.72 AST 22.5 ALT 15.1 Alkaline Phosphatase 90.9 Total Protein 7.63 Albumin 4.40 Globulin 3.23 Albumin/Globulin Ratio 1.36 Procalcitonin 1.47 H Urine Color Yellow Urine Clarity Clear Urine pH 6.5 Ur Specific [place] 1.015 Urine Protein Negative Urine Glucose (UA) Negative Urine Ketones Negative Urine Blood Trace-intact H Urine Nitrite Negative Urine Bilirubin Negative Urine Urobilinogen 4.0 H Ur Leukocyte Esterase Trace H Urine Microscopic RBC 2-5 Urine Microscopic WBC 5-10 Ur Squamous Epith Cells 20-30 Urine Bacteria Trace Urine Mucus Trace Influ A Molecular Assay Negative by naat Influ B Molecular Assay Negative by naat SARS CoV-2 RNA Rapid LIZBET Negative 10/08/23 06:08 WBC 16.52 H D RBC 4.18 L Hgb 13.0 Hct 41.0 MCV 98.1 MCH 31.1 H MCHC 31.7 L RDW Coeff of Fawad 12.8 Plt Count 217 Immature Gran % (Auto) 0.7 Neut % (Auto) 88.9 H Lymph % (Auto) 9.3 L [place] % (Auto) 1.0 Eos % (Auto) 0.0 Baso % (Auto) 0.1 Neut # (Auto) 14.7 H Lymph # (Auto) 1.5 [place] # (Auto) 0.2 L Eos # (Auto) 0.0 Baso # (Auto) 0.0 Immature Gran # (Auto) 0.1 Sodium 140.8 Potassium 3.78 Chloride 110.0 H Carbon Dioxide 22.6 Anion Gap 11.98 BUN 18.3 H Creatinine 0.99 Estimated GFR (MDRD) 54.00 BUN/Creatinine Ratio 18.48 Glucose 184.9 H D Lactic Acid Calcium 10.37 H Total Bilirubin 0.70 AST 21.8 ALT 15.7 Alkaline Phosphatase 88.9 Total Protein 7.30 Albumin 4.14 Globulin 3.16 Albumin/Globulin Ratio 1.31 Procalcitonin 1.68 H Urine Color Urine Clarity Urine pH Ur Specific [place] Urine Protein Urine Glucose (UA) Urine Ketones Urine Blood Urine Nitrite Urine Bilirubin Urine Urobilinogen Ur Leukocyte Esterase Urine Microscopic RBC Urine Microscopic WBC Ur Squamous Epith Cells Urine Bacteria Urine Mucus Influ A Molecular Assay Influ B Molecular Assay SARS CoV-2 RNA Rapid LIZBET Microbiology This Visit 10/07/23 21:10 Urine,Random Urine Culture - Preliminary Imaging Imaging: EXAM: CHEST RADIOGRAPH (2 VIEW) TECHNIQUE: AP and Lateral Chest Radiographs. HISTORY: Fever and cough COMPARISON: The 09/23/2020 FINDINGS: Lines, Tubes, Devices: None. Lungs and Pleura: Hazy densities in the mid and lower lungs. Reticular nodular densities. No pleural effusion or pneumothorax. Cardiac silhouette: Normal. Bones: No acute abnormality. IMPRESSION: Hazy and reticular nodular densities in the mid and lower lungs. Correlate for pneumonitis. Clinical imaging follow-up to ensure resolution and exclude other etiologies. Review Statement Review Statement: I have independently reviewed and interpreted the labs/EKGs/imaging that were ordered by the ER provider. I have reviewed all outside records that are available currently in our EMR including imaging/notes/labs from previous visits. Plan Plan: 1. Sepsis r/o - met due to WBC and tachycardia, blood cultures pending, azith and cefepime, culture sputum 2. Pneumonitis/CAP - azith and cefepime, culture sputum, steroids and nebs 3. COPD - chronic, does not appear in exacerbation, monitor 4. Anxiety/Depression - chronic, continue home medications DVT Prophylaxis: Up with assist Time Spent: Greater than 80 minutes spent with patient, 50% of the time spent with this patient was devoted to counseling and coordination of care. [facility]annin minutes spent discussing advance care planning. Disposition: Admit to: Med/Surg Observation DNR Discussed Plan of Care with Dr. Nitin Diaz. Medications Medication Orders: Medications Ordered Category Date Time Status 0.9 % Sodium Chloride [Saline Flush] Meds 10/07/23 19:22 Active 1 syr IVF PRN PRN Acetaminophen [Tylenol] Meds 10/07/23 20:19 Active 650 mg PO Q4H PRN Albuterol Sulfate 0.083% Neb [Albuterol 0.083% Neb] Meds 10/07/23 20:19 Active 2.5 mg NEB RTQ4H PRN Azithromycin Inj [Zithromax] 500 mg Meds 10/08/23 21:00 Active 0.9 % Sodium Chloride [Sodium Chloride] 250 ml IV BEDTIME Buspirone HCl [Buspar] Meds 10/07/23 21:50 Active 10 mg PO BID Cefepime 2 gm/D5w [Maxipime 2 gm/50 ml D5w] Meds 10/07/23 22:09 Active 2 gm in 50 ml IV Q12HR Gabapentin [Neurontin] Meds 10/07/23 22:00 Active 600 mg PO TID Guaifenesin/Dextromethorphan [Robitussin Dm Syrup] Meds 10/07/23 20:19 Active 10 ml PO Q4H PRN Ipratropium/Albuterol Neb [Duoneb] Meds 10/07/23 22:00 Active 3 ml NEB RTQ4H Methylprednisolone Sod Succ/Pf [Solu-Medrol 40 mg] Meds 10/07/23 21:00 Active 40 mg IVP Q8HR Oxycodone-Acetaminophen 10-325 [Percocet 10-325] Meds 10/07/23 21:49 Active 1 tab PO TID PRN Pantoprazole Sodium [Protonix] Meds 10/08/23 09:00 Active 40 mg PO QDAC2 Quetiapine Fumarate [Seroquel] Meds 10/07/23 21:50 Active 100 mg PO BEDTIME Quetiapine Fumarate [Seroquel] Meds 10/07/23 21:50 Active 25 mg PO BEDTIME
[2023-10-08] MEDS: ROBITUSSIN DM SYRUP PO PRN (20:32)
[2023-10-08] MEDS: SEROQUEL PO SCH ×2 (20:33→20:34)
[2023-10-08] MEDS ORDERED: ZITHROMAX 500 MG in SODIUM CHLORIDE 250 ML IV SCH (21:00)
[2023-10-08] MEDS ORDERED: MAXIPIME 2 GM/50 ML D5W 2 GM/50 ML BAG IV SCH (22:00)
[2023-10-09] MEDS: DUONEB NEB SCH ×4 (01:00→14:30)
[2023-10-09 05:08] VITALS: RESP 18
[2023-10-09 05:08] LABS: BASOPHILS % (AUTO) 0.1 % (0.0-3.0); HEMATOCRIT 36.1 % (37.0-47.0); HEMOGLOBIN 11.7 g/dl (12.0-16.0); IMMATURE GRANULOCYTE # (AUTO) 0.2 (0.0-1.0); IMMATURE GRANULOCYTE % (AUTO) 1.1 % (0.0-5.0); MEAN CORPUSCULAR HEMOGLOBIN 31.2 pg (27.0-31.0); MEAN CORPUSCULAR HGB CONC 32.4 (31.8-35.4); MEAN CORPUSCULAR VOLUME 96.3 fl (81.0-99.0); MONOCYTES # (AUTO) 0.5 K/uL (0.4-2.0); MONOCYTES % (AUTO) 2.6 (0-10); NEUTROPHILS # (AUTO) 17.3 K/ul (2.0-6.9); NEUTROPHILS % (AUTO) 91.2 % (42.2-75.2); PLATELET COUNT 204 10^3/uL (140-440); RED BLOOD COUNT 3.75 10^6/ul (4.20-5.40); WHITE BLOOD COUNT 18.98 K/ul (4.6-10.2)
[2023-10-09] MEDS: SOLU-MEDROL 40 MG IVP SCH ×2 (05:14→12:26)
[2023-10-09] MEDS: PROTONIX PO SCH (05:15)
[2023-10-09 05:24] LABS: ALANINE AMINOTRANSFERASE 15.8 U/L (0-35); ALBUMIN 3.54 g/dL (3.5-5.0); ALKALINE PHOSPHATASE 69.6 U/L (53-141); ASPARTATE AMINO TRANSFERASE 20.3 U/L (14-36); BILIRUBIN,TOTAL 0.26 mg/dL (0.2-1.3); BLOOD UREA NITROGEN 23.7 mg/dL (7-17); CALCIUM 10.67 mg/dL (8.4-10.2); CARBON DIOXIDE 23.5 mmol/L (22-30.0); CHLORIDE 110.1 mmol/L (98-107); CREATININE 1.03 mg/dL (0.60-1.30); GLUCOSE 186.3 mg/dL (74-106); POTASSIUM 4.61 mmol/L (3.5-5.1); TOTAL PROTEIN 6.56 g/dL (6.3-8.2)
[2023-10-09] MEDS: NEURONTIN PO SCH (09:08)
[2023-10-09] MEDS: BUSPAR PO SCH (09:08)
[2023-10-09] MEDS: MAXIPIME 2 GM/50 ML D5W 2 GM/50 ML BAG IV SCH (09:08)
--- NOTE | 2023-10-09 09:49 | DCSUM ---
Admission Date Admission Date: 10/07/23 Discharge Date Discharge Date: 10/09/23 Admission Diagnosis Admission Diagnosis: 1. Sepsis 2. Pneumonitis/CAP Discharge Diagnosis Discharge Diagnosis: 1. Sepsis - ruled out 2. Pneumonitis/CAP - improved 3. COPD - chronic, 4. Anxiety/Depression - chronic 5. GERD Hospital Provider Hospital Provider: UBALDO CARO PA-C, [facility] Primary Care Physician Primary Care Physician: CHANDRA NÚÑEZ Summary of History and Physical Summary of History and Physical: 78 yo female presented to the ER with fever and weakness. 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 Has had a fever since yesterday as high as 102. Has had a dry cough since Monday and felt weak. Has felt somewhat SOB at times. Wears oxygen PRN at home. Denies any chills, body aches, chest pain, back pain, N/V/D. In ER was found to have wbc count of 20k, cxr showed pneumonitis. Hospital Course Subjective: Patient was treated with azithromycin and cefepime. She wore O2 prn as she does at home. No fever while hospitalized. WBC count elevated, but also on solumedrol. Blood culture negative so far. Sputum culture pending. Patient feels at her baseline and is requesting to be discharged home today. She has help at home and a walker. She will be discharged on augmentin, azithromycin, prednisone, and albuterol inhaler. F/u with pcp within the week. Pt agrees to plan of care. Appearance: Pleasant, No Apparent Distress and Alert HEENT: MMM CVS: No Murmur Abdomen: Soft, Non-Tender and No Distention Respiratory: No Accessory Muscle Use Extremities: No Edema Vital Signs: Most Recent Vital Signs Temperature 98.8 F 10/09/23 05:05 Temperature Source Oral 10/09/23 05:05 Temperature Source Infrared 10/07/23 18:26 Pulse Rate 92 10/09/23 05:05 Respiratory Rate 18 10/09/23 05:05 Blood Pressure 120/71 10/09/23 05:05 Blood Pressure Mean 87 10/09/23 05:05 Blood Pressure Left Arm 143/80 10/07/23 20:50 Blood Pressure Location Right Arm 10/09/23 05:05 Blood Pressure Position Supine 10/09/23 05:05 O2 Sat by Pulse Oximetry 96 10/09/23 09:42 Oxygen Delivery Method Nasal Cannula 10/09/23 09:43 Oxygen Flow Rate 2 10/09/23 09:42 Height 5 ft 5 in 10/07/23 20:50 Weight 179 lb 4 oz 10/07/23 20:50 Telemetry Heart Rate 52 L 01/04/21 15:49 Telemetry SPO2 97 01/04/21 15:49 Imaging: EXAM: CHEST RADIOGRAPH (2 VIEW) TECHNIQUE: AP and Lateral Chest Radiographs. HISTORY: Fever and cough COMPARISON: The 09/23/2020 FINDINGS: Lines, Tubes, Devices: None. Lungs and Pleura: Hazy densities in the mid and lower lungs. Reticular nodular densities. No pleural effusion or pneumothorax. Cardiac silhouette: Normal. Bones: No acute abnormality. IMPRESSION: Hazy and reticular nodular densities in the mid and lower lungs. Correlate for pneumonitis. Clinical imaging follow-up to ensure resolution and exclude other etiologies. Lab Results Last 24 Hours: 10/09/23 04:49 WBC 18.98 H RBC 3.75 L Hgb 11.7 L Hct 36.1 L MCV 96.3 MCH 31.2 H MCHC 32.4 RDW Coeff of Fawad 13.0 Plt Count 204 Immature Gran % (Auto) 1.1 Neut % (Auto) 91.2 H Lymph % (Auto) 5.0 L [place] % (Auto) 2.6 Eos % (Auto) 0.0 Baso % (Auto) 0.1 Neut # (Auto) 17.3 H Lymph # (Auto) 1.0 [place] # (Auto) 0.5 Eos # (Auto) 0.0 Baso # (Auto) 0.0 Immature Gran # (Auto) 0.2 Sodium 138.0 Potassium 4.61 Chloride 110.1 H Carbon Dioxide 23.5 Anion Gap 9.01 BUN 23.7 H Creatinine 1.03 Estimated GFR (MDRD) 52.00 BUN/Creatinine Ratio 23.00 Glucose 186.3 H Calcium 10.67 H Total Bilirubin 0.26 AST 20.3 ALT 15.8 Alkaline Phosphatase 69.6 Total Protein 6.56 Albumin 3.54 Globulin 3.02 Albumin/Globulin Ratio 1.17 Procalcitonin 1.14 H Discharge Instructions Discharge Planning: Discharge Planning > [address] Todd Diaz. Discharge Medications: Medications at Discharge (Home Meds & RX) oxycodone-acetaminophen 10 mg-325 mg tablet (Percocet) 1 ea PO TID 02/02/18 quetiapine 100 mg tablet (Seroquel) 100 mg PO QHS #30 tabs 01/14/21 fluvoxamine 100 mg tablet 100 mg PO QHS #30 tabs 04/05/21 fluvoxamine 50 mg tablet See Rx Instructions .Route .COMPLEX #30 tabs 04/05/21 buspirone 10 mg tablet 10 mg PO BID 10/07/23 gabapentin 600 mg tablet 600 mg PO TID 10/07/23 pantoprazole 40 mg tablet,delayed release 40 mg PO DAILY 10/07/23 quetiapine 25 mg tablet 25 mg PO BEDTIME 10/07/23 albuterol sulfate 90 mcg/actuation aerosol inhaler (ProAir HFA) 2 puff inhalation Q4-6H PRN shortness of breath or wheezing 30 days #1 puff 10/09/23 amoxicillin 875 mg-potassium clavulanate 125 mg tablet 1 tab PO BID 6 days #12 tabs 10/09/23 azithromycin 250 mg tablet 250 mg PO DAILY 3 days #3 tabs 10/09/23 prednisone 20 mg tablet 20 mg PO BID 5 days #10 tabs 10/09/23 Discharge Plan Discharge Discharge Orders: Discharge Patient (ONCE); Ordered 10/09/23 Ordered By: UBALDO CARO Activity Restrictions/Additional Instructions: DISCHARGE TO HOME DIET: NORMAL ACTIVITY: TOLERATED PHARMACY: [facility]/[place] WITH PCP THIS WEEK RETURN WITH WORSENING SYMPTOMS RECOMMEND REPEAT CBC WITH PCP Instructions: Pneumonia (GEN) Patient Disposition: HOME SELF-CARE Prescriptions: New azithromycin 250 mg tablet 250 mg PO DAILY 3 Days Qty: 3 0RF Rx Instructions: start tonight 10/09 amoxicillin-pot clavulanate 875-125 mg tablet 1 tab PO BID 6 Days Qty: 12 0RF Rx Instructions: Start tonight 10/09 prednisone 20 mg tablet 20 mg PO BID 5 Days Qty: 10 0RF Continued oxycodone-acetaminophen [Percocet] 1 EACH tablet 1 ea PO TID fluvoxamine 100 mg tablet 100 mg PO QHS Qty: 30 0RF Rx Instructions: Take with 50mg tablet fluvoxamine 50 mg tablet See Rx Instructions .ROUTE .COMPLEX Qty: 30 0RF Dose Instruction: TAKE 1 TABLET BY MOUTH EVERY NIGHT AT BEDTIME TAKE WITH 100MG TABLET. Rx Instructions: TAKE 1 TABLET BY MOUTH EVERY NIGHT AT BEDTIME TAKE WITH 100MG TABLET. buspirone 10 mg tablet 10 mg PO BID gabapentin 600 mg tablet 600 mg PO TID pantoprazole 40 mg tablet,delayed release (DR/EC) 40 mg PO DAILY quetiapine 25 mg tablet 25 mg PO BEDTIME Patient Comments: takes with quetiapine 100mg at bedtime to equal 125mg albuterol sulfate [ProAir HFA] 90 mcg/actuation HFA aerosol inhaler 2 puff inhalation Q4-6H PRN (Reason: shortness of breath or wheezing) 30 Days Qty: 1 2RF quetiapine [Seroquel] 100 mg tablet 100 mg PO QHS Qty: 30 1RF Did you review [place] [employer] for ALL controlled substances?: Not Applicable Discussed opioids are addictive and Narcan is available by prescription or from pharmacy.: No Condition: Stable Referrals: CHANDRA NÚÑEZ [Primary Care Provider] - 10/13/23 2:00 pm
[2023-10-09 14:01] VITALS: BP 126/73; PULSE 94; TEMP 98.2
== END 2023-10-09 14:45 | disposition home or self-care (01) ==
LOC: ED 18:13 → MEDSURG B 18:13
PROVIDERS: ADMIT Hospitalist; ATTEND Physician Assistant